=== PATIENT | female | born 1955 | race Caucasian/White ===

== ENCOUNTER 2024-11-25 15:28 | Emergency (ER) | payer MEDICARE, SELFPAY ==
--- NOTE | ~2024-11-25 | XR_ITS ---
XR abdomen/kub 1V Ordering provider: Porter Olson APRN History: . diarrhea/abdomen cramping . Comparison: None. FINDINGS: BOWEL: Nonobstructive bowel gas pattern. ORGANOMEGALY: None. SIGNIFICANT PATHOLOGIC CALCIFICATIONS: None. OTHER: No free air is seen under the diaphragm. Degenerative changes of the spine. Bilateral moderate hip osteoarthritic changes. IMPRESSION: NO ACUTE ABDOMINAL FINDINGS. Reviewed, dictated and finalized at location A.
--- OUTSIDE RECORDS SUMMARY | 2024-11-25 15:31 | XMS_ITS | Encounter Summary ---
Author Organization [facility] Health Address [address] [place] [address] Care Team Providers Care Drafter Castings Name Role Phone Ranjeet Colby MD Primary Care Provider [phone] Ranjeet Colby MD Unavailable [phone] Ranjeet Colby MD Primary Care Provider [phone] Encounter Details Date Type Department Care Team (Late st Contact Info) Description 12/02/2021 Ophth Exam [facility] [address] [place] [address] Naina Strong MD [address] [place] [address] [address] [place] [address] Social History Tobacco Use Types Packs/Day Years Used Date Smoking Tobacco: Every Day Cigarettes 1 40 Smokeless Tobacco: Never Alcohol Use Standard Drinks/Week Comments Yes 0 (1 standard drink = 0.6 oz pur e alcohol) socially per family AUDIT-C Answer Date Recorded Q1: How often do you have a drink containing alc ohol? Never 11/25/2021 Average Number of Drinks Not on file 022 Frequency of Binge Drinking Not on file 11/02 Hunger Vital Sign Answer Date Recorded Within the past 12 months, y ou worried that your food would run out before you got the money to buy more. Never true 11/27/19 22 Within the past 12 months, t he food you bought just didn't last and you didn't have money to get more. Never true 11/26/2021 Comments Unknown Sex and Gender Information Value Date Recorded Sex Assigned at Female 11/27/2021 1:48 PM CDT Legal Sex Female 8:24 PM CDT Gender Identity Female 11/27/2021 1:48 PM CDT Sexual Orientation Straight 11/27/2021 1: 48 PM CDT documented as of this encounter Functional Status * Is person deaf or have serious hearing difficulty? Answer Date of Assessment Author No 11/26/2021 2:47 PM CDT Benita Almazan RN * Is person blind or have serious difficulty seeing? Answer Date of Assessment Author No 11/26/2021 2:47 PM CDT Benita Almazan RN * Does person have serious difficulty walking/climbing stairs? Answer Date of Assessment Author Yes 11/26/2021 2:47 PM CDT Benita Almazan RN * Does person have difficulty dressing/bathing? Answer Date of Assessment Author No 11/26/2021 2:47 PM CDT Benita Almazan RN * Does person have difficulty doing errands alone? Answer Date of Assessment Author No 11/26/2021 2:47 PM CDT Benita Almazan RN documented as of this encounter Mental Status * Does person have difficulty concentrating/remembering/making decisions? Answer Entry Date Author No 11/26/2021 2:47 PM CDT Benita Almazan RN documented in this encounter Plan of Treatment Upcoming Encounters Date Type Department Care Team (Late st Contact Info) Description 03/20/2025 11:30 AM CDT Procedure visit [facility] - [address] [phone] 03/20/2025 12:30 PM CDT Office Visit [facility] - [address] [address] Giovanny Srivastava MD [address] [place] [address] [place] [address] documented as of this encounter Goals Goal Patient Goal Type Associated Problems Recent Progress Patient-Stated? Author Medication Management General On track( 024 1:20 PM CDT) No Cesar Shi RN Note: Expected end date: Interventions: Take all medications as prescribed Let your doctor know right away about any changes in your medications Make sure to request a refill of your medication at least one week prior to your last dose documented as of this encounter Visit Diagnoses Not on filedocumented in this encounter Additional Health Concerns Infection Onset Date Last Indicated Resolved Time COVID-19 Under Investigation 12/06/2021 12/06/2021 12/07/2021 3:11 AM CDT documented as of this encounter Care Teams Drafter Castings Relationship Specialty Start Date End Date Ranjeet Colby MD PCP - General Internal Medicine 11/26/21 12/08/21 Ranjeet Colby MD [address] [place] [address] PCP - General 12/09/21 Ranjeet Colby MD [address] [place] [address] Family Medicine 11/26/21 documented as of this encounter
--- OUTSIDE RECORDS SUMMARY | 2024-11-25 15:31 | XMS_ITS | Clinical Summary ---
Author Organization [facility] [employer] Address [address] [place] [address] Care Team Providers Care Cell Reliner Name Role Phone Ranjeet Colby MD Unavailable [phone] Ranjeet Colby MD Primary Care Provider [phone] Source Comments [facility] [employer],non-owned Affiliates and Associated Physician Practices is amultiple site organization consisting of ambulatory clinics and hospital sitesin [place], [place], [place] and [place]. This disclosure is being madepursuant to the Care Everywhere program and may not contain all information available regarding this patient. Last updated 18.[facility]avel[facility] [employer] Allergies Active Allergy Reactions Criticality Noted Date Comments Pregabalin Other Low 04/06/2014 Gaining too much weight. Rosuvastatin Other Low 02/24/2013 Hair loss Medications * Be aware that medications may not be up to date on this document. Alwaysverify current medications with the patient. cetirizine (ZYRTEC) 10 MG tablet Take 1 (one) tablet by mouth DAILY 7 Active citalopram (CELEXA) 20 MG tablet 6 Active atorvastatin (LIPITOR) 20 MG tablet 6 Active traZODone (DESYREL) 50 MG tablet Take 1 (one) tablet by mouth at bedtime 2 Active omeprazole (PRILOSEC) 40 MG capsule Take 1 (one) capsule by mouth daily before breakfast 2 Active lisinopril (PRINIVIL; ZESTRIL) 2.5 MG tablet Take 1 (one) tablet by mouth every morning Active albuterol-ipratrop ium (DUO-NEB) 0.5-2.5 (3) MG/3ML nebulizer solution Inhale 3 mL by mouth every 6 hours 2 Active lidocaine (LIDODERM) 5 % patch Apply 2 (two) patches to skin every 24 hours 2 Active triamterene-hydroC HLOROthiazide (MAXZIDE-25) 37.5-25 MG tablet Take 1 (one) tablet by mouth once daily 2 Active levothyroxine (SYNTHROID) 25 MCG tablet Take 1 (one) tablet by mouth once daily 2 Active gabapentin (Neurontin) 600 MG tablet Take 1 (one) tablet by mouth 3 times daily 90 tablet 5 2 Active isosorbide mononitrate CR 24hr (Imdur) 30 MG tablet Take 1 (one) tablet by mouth once daily 2 Active Aspirin 81 MG CAPS 1 tablet DAILY (route: oral) 2 Active Calcium Carbonate-Vitamin D (Calcium-Vitamin D) 600-3.125 MG-MCG TABS Take 2 tablets by mouth once daily Active ursodiol (Pedro Forte) 500 MG tablet Take 1 (one) tablet by mouth 2 times daily 180 tablet 3 4 03/21/20 25 Active diclofenac sodium (Voltaren) 1 % gelIndications:Susanna floridalma osteoarthritis of right knee Apply 2 (two) g to affected area 4 times daily Apply to knees 100 g 5 4 Active Active Problems Problem Noted Date Diagnosed Date Adrenal nodule 12/13/2021 Ectatic aorta 12/13/2021 L2 vertebral fracture 11/26/2021 Closed fracture of nasal bone 11/26/2021 Sacral fracture 11/26/2021 Pulmonary contusion 11/25/2021 Bilateral superior and inferior pubic rami fract ures 11/25/2021 Closed fracture of multiple ribs of right side, initial encounter 11/25/2021 Multiple closed fractures of pelvis without disruption of pelvic ring, initial encounter 11/25/2021 Primary biliary cholangitis 11/12/2016 Overview (11/24/2021): 12/2005: Liver biopsy: 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, PAGE, duct abnormalities, positive AMA 11/21/21 Fibroscan CAP 216, LSM 5.3 kPa Essential (primary) hypertension 02/24/2013 Hyperlipidemia 02/24/2013 Osteoarthritis 02/24/2013 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 Coronary angioplasty status 02/24/2013 Neuropathy of right peroneal nerve Resolved Problems Problem Noted Date Diagnosed Date Resolved Date Hemopneumothorax on right 12/13/2021 Pelvic hematoma, female 12/13/202112/01 Acute delirium 12/13/2021 12/16/2021 Flail chest 12/13/2021 12/16/2021 Cardiac arrest 12/13/2021 12/16/2021 Traumatic adrenal hematoma 12/13/2021 0 12/16/2021 Hemorrhage of pelvic artery 12/13/2021 12/16/2021 Bladder wall hemorrhage 11/26/202112/01 Respiratory failure after trauma 11/26/2021 12/16/2021 Diarrhea 07/03/2014 11/30/2017 Overview (11/02/2017): Colonoscopy biopsies consistent with lymphocytic colitis. Immunizations Immunization Administration Dates Next Due KlickEx primary monoval ent 12+ yr 0.3mL Purple cap 08/28/2021,11/18/2020,10/12/2020 Family History Medical History Relation Name Comments Cancer Father Lymphoma; Statu s: Diabetes Mother Status: Alive Heart Disease Mother AFIB Hypertension Mother Heart Disease Sister 1 Status: Alive Diabetes Sister 2 Diabetes Sister 3 Status: Alive Heart Disease Sister 4 Status: Deceas ed Arthritis Sister 5 Diabetes Sister 6 Diabetes Sister 7 Status: Alive None Known Sister 8 Status: Alive Relation Name Status Comments Father Mother Sister 1 Sister 2 Sister 3 Sister 4 Sister 5 Sister 6 Sister 7 Sister 8 Social History Tobacco Use Types Packs/Day Years Used Date Smoking Tobacco: Former Cigarettes 1 40 0 11/25/1981 - 11/25/2021 Smokeless Tobacco: Never Tobacco Cessation:Counseling Given: Not Answered Alcohol Use Standard Drinks/Week Comments Yes 0 (1 standard drink = 0.6 oz pur e alcohol) socially per family AUDIT-C Answer Date Recorded Q1: How often do you have a drink containing alc ohol? Never 11/25/2021 Average Number of Drinks Not on file 022 Frequency of Binge Drinking Not on file 11/02 PHQ-2 Answer Date Recorded Patient Health Questionnaire-2 Score 4 06/14/2024 Hunger Vital Sign Answer Date Recorded Within [...] Orientation Straight 11/27/2021 1: 48 PM CDT Last Filed Vital Signs Vital Sign Reading Time Taken Comments Blood Pressure 131/78 03/21/2024 1:19 PM CDT Pulse 72 03/21/2024 1:19 PM CDT Temperature 36.6 C (97.9 F) 03/21/2024 1:19 PM CDT Respiratory Rate 20 04/02/2023 12:10 PM CDT Oxygen Saturation 96% 03/21/2024 1:19 PM CDT Inhaled Oxygen Concentration 21% 12/16/2021 4 :52 AM CDT Weight 69.9 kg (154 lb) 04/11/2024 2:11 PM CDT Height 152.4 cm (5') 03/21/2024 1:19 PM CDT Body Mass Index 30.08 03/21/2024 1:19 PM CDT Plan of Treatment Upcoming Encounters Date Type Department Care Team (Late st Contact Info) Description 03/20/2025 11:30 AM CDT Procedure visit [facility] [address] [place] [phone] 03/20/2025 12:30 PM CDT Office Visit [facility] - [facility] [address] [place] [phone] Giovanny Srivastava MD [address] [place] [address] [place] [address] Health Maintenance Due Date Last Done Comments COLOGUARD (AGES 45-75) - COLON CA SCREENING 1954 COLON MONITORING 1954 COLONOSCOPY - COLON CA SCREENING 1954 CT COLONOGRAPHY - COLON CA SCREENING 1954 Colorectal Cancer Screening 1954 FIT - COLON CA SCREENING 1954 FLEX SIG - COLON CA SCREENING 1954 MAMMOGRAM 1954 MEDICARE AWV 12 MONTHS 1954 HEPATITIS C SCREENING 01/12/1972 DTAP/TDAP/TD VACCINES (1 - Tdap) 1973 PNEUMOCOCCAL VACCINE 50+ (1 of 2 - PCV) 1973 LUNG CANCER SCREENING 01/17/2004 ZOSTER VACCINE (1 of 2) 01/17/2004 HEPATITIS B VACCINE (1 of 3 - Risk 3-dose series) 2014 Respiratory Syncytial Virus (RSV) Vaccine Pt: or over 60 yrs (1 - Risk 60-74 years 1-dose series) 2014 COVID-19 VACCINE (4 - season) 2024 08/28/2021, 11/18/2020, 10/12/2020 DEPRESSION SCREENING 08/03/2024 INFLUENZA VACCINE (Season Ended) 2025 06/09/2019, 06/22/2018 SCREENING FOR DIABETES 03/21/2027 , 04/02/2023, 11/20/2022, Additional history exists BONE DENSITY TESTING Completed 04/02/2023 HIB VACCINE Aged Out No longer eligi ble based on patient's age to complete this topic HPV VACCINE Aged Out No longer eligi ble based on patient's age to complete this topic MENINGOCOCCAL (Group B) VACCINE SHARED DECISION-MAKING Aged Out No longer eligible based on patient's age to complete this topic MENINGOCOCCAL GROUPS A/C/Y/W VACCINE Aged Out No longer eligible based on patient's age to complete this topic Goals Goal Patient Goal Type Associated Problems Recent Progress Patient-Stated? Author Medication Management General On track( 024 1:20 PM CDT) Cesar Gregory, RN Note: Expected end date: Interventions: Take all medications as prescribed Let your doctor know right away about any changes in your medications Make sure to request a refill of your medication at least one week prior to your last dose Procedures Procedure Name Priority Date/Time Associated Diagnosis Comments COMPREHENSIVE METABOLIC PANEL Routine 03/21/2024 11:50 AM CDT Primary biliary cholangitis DEXA BONE DENSITY AXIAL SKELETON Routine 04/02/2023 10:06 AM CDT Primary biliary cholangitis from Last 3 Months or Most Recently Relevant to Health Maintenance Results * (ABNORMAL) COMPREHENSIVE METABOLIC PANEL (03/21/2024 11:50 AM CDT) BUN 12 7 - 26 mg/dL 03/21/2024 12:45 PM [facility] Creatinine 0.66 0.56 - 0.96 mg/dL 03/21/2024 12:45 PM [facility] Sodium 136 136 - 145 mmol/L 03/21/2024 12:45 PM [facility] Potassium 5.0(H) 3.5 - 4.5 mmol/L 03/21/2024 12:45 PM [facility] Chloride 100 98 - 107 mmol/L 03/21/2024 12:45 PM [facility] CO2 28 22 - 29 mmol/L 03/21/2024 12:45 PM [facility] Glucose 120(H) 70 - 115 mg/dL 03/21/2024 12:45 PM [facility] Calcium 10.1 8.4 - 10.2 mg/dL 03/21/2024 12:45 PM [facility] Protein Total 7.5 6.0 - 8.3 g/dL 03/21/2024 12:45 PM [facility] Albumin 4.1 3.4 - 5.0 g/dL 03/21/2024 12:45 PM [facility] Bilirubin Total 0.4 0.2 - 1.2 mg/dL 03/21/2024 12:45 PM [facility] Alkaline Phosphatase 88 40 - 150 U/L 03/21/2024 12:45 PM [facility] ALT 19 5 - 55 U/L 03/21/2024 12:45 PM CDT [facility] AST 23 5 - 34 U/L 03/21/2024 12:45 PM CDT [facility] Anion Gap 8 6 - 16 03/21/2024 12:45 PM CDT [facility] BUN/Creatinine Ratio 18 7 - 23 03/21/2024 12:45 PM CDT [facility] Osmolality Calculated 283 275 - 295 mOsm/kg 03/21/2024 12:45 PM T [facility] Albumin/Globulin Ratio 1.2 1.1 - 2.3 03/21/2024 12:45 PM T [facility] eGFR by CKD-EPI >90 >=90 mL/min/1.7 3 m2 03/21/2024 12:45 PM T [facility] Blood BLOOD SPECIMEN / Unknown Lab Venipuncture / Unknown 03/21/2024 11:50 AM CDT 03/21/2024 12:08 PM CDT Giovanny Srivastava MD LAB - CHEMISTRY ORDERA BLES Final Result [facility] [address] [place] [phone], [facility] [phone] * BONE DENSITY AXIAL SKELETON(1OR MORE SITES)[id number] (04/02/2023 10:06 AM CDT) Anatomical Region Laterality Modality Other 04/02/2023 2:47 PM CDT Narrative 04/02/2023 2:53 PM CDT PROCEDURE: DEXA BONE DENSITY AXIAL SKELETON DATE/TIME OF EXAM: 04/02/2023 10:06 AM CLINICAL INFORMATION: None relevant/not provided if blank. Indication: K74.3: Primary biliary cholangitis (CMS/HCC) COMPARISON: None. LUMBAR SPINE (L1-L4): Bone mineral density (g/cm2): 0.861 Current T-score: -1.7 LEFT FEMORAL NECK: Bone mineral density (g/cm2): 0.649 Current T-score: -1.8 BONE DENSITY ASSESSMENT: WHO Category: Osteopenia. FRAX not reported because: Prior hip or vertebral fracture. Please see the PACS images for additional details. World Health Organization definitions of standard deviations relative to the mean T-score: Normal bone density = -1.0 and above Osteopenia = between -1.0 and -2.5 Osteoporosis = -2.5 and below > Dictated by George Abad MD ([employer]) 04/02/2023 2:47 PM Kavon Chow DO have personally reviewed and interpreted this examination/study. > Interpreting Provider: Kavon Navas DO on 04/02/2023 2:53 PM Procedure Note Kavon Navas DO - 04/02/2023 PROCEDURE: DEXA BONE DENSITY AXIAL SKELETON DATE/TIME OF EXAM: 04/02/2023 10:06 AM CLINICAL INFORMATION: None relevant/not provided if blank. Indication: K74.3: Primary biliary cholangitis (CMS/HCC) COMPARISON: None. LUMBAR SPINE (L1-L4): Bone mineral density (g/cm2): 0.861 Current T-score: -1.7 LEFT FEMORAL NECK: Bone mineral density (g/cm2): 0.649 Current T-score: -1.8 BONE DENSITY ASSESSMENT: WHO Category: Osteopenia. FRAX not reported because: Prior hip or vertebral fracture. Please see the PACS images for additional details. World Health Organization definitions of standard deviations relative to the mean T-score: Normal bone density = -1.0 and above Osteopenia = between -1.0 and -2.5 Osteoporosis = -2.5 and below > Dictated by George Abad MD ([employer]) 04/02/2023 2:47PM Kavon Chow DO have personally reviewed and interpreted this examination/study. > Interpreting Provider: Kavon Navas DO on 04/02/2023 2:53 PM Giovanny Srivastava MD DEXA ORDERABLES Final Result from Last 3 Months or Most Recently Relevant to Health Maintenance Insurance [facility] SUPPLEMENT PAYOR GENERIC MEDICARE MEDICARE SUPPLEMENT PAYOR GENERIC MEDICARE MEDICARE MEDICARE SUPPLEMENT PAYOR GENERIC MEDICARE MEDICARE SUPPLEMENT PAYOR GENERIC [facility] [employer] [employer] LIABILITY MEDICARE MEDICARE MEDICARE MEDICARE MEDICARE Member [facility] Name:Irina Price R Member ID:[id number] Relation to Subscriber:Self Name:IRINA PRICE R Subscriber ID:[id number] Payer ID:Not on file Group ID:Not on file Type:Medicare Address: [place] [address] MEDICARE Member Subscriber [facility] / [facility] Name:Irina Price R Member ID:[id number] Relation to Subscriber:Self Name:IRINA PRICE R Subscriber ID:[id number] Payer ID:Not on file Group ID:Not on file Type:Medicare Address: [place] [address] MEDICARE Member Subscriber [facility] / [facility] Name:Kevin Pricea R Member ID:[id number] Relation to Subscriber:Self Name:IRINA PRICE R Subscriber ID:[id number] Payer ID:Not on file Group ID:Not on file Type:Medicare Address: [place] [address] MEDICARE Member Subscriber [facility] / [facility]Present[facility] Name:Kevin Pricea R Member ID:[id number] Relation to Subscriber:Self Name:IRINA PRICE R Subscriber ID:[id number] Payer ID:Not on file Group ID:Not on file Type:Medicare Address: [place] [address] MEDICARE Member Subscriber [facility] / [facility]Present[facility] Name:Kevin Pricea R Member ID:[id number] Relation to Subscriber:Self Name:KEVIN PRICEA R Subscriber ID:[id number] Payer ID:Not on file Group ID:Not on file Type:Medicare Address: [place] [address] MEDICARE Member Subscriber [facility] / [facility]Present[facility] Name:Irina Price R Member ID:[id number] Relation to Subscriber:Self Name:IRINA PRICE R Subscriber ID:[id number] Payer ID:Not on file Group ID:Not on file Type:Medicare Address: [place] [address] MEDICARE MEDICARE Member Subscriber [facility] / [facility]Present) Name:Kevin Pricea R Member ID:[id number] Relation to Subscriber:Self Name:IRINA PRICE R Subscriber ID:[id number] Payer ID:Not on file Group ID:Not on file Type:Medicare Address: [place] [address] MEDICARE Member Subscriber [facility] / [facility]Present) Name:Kevin Pricea R Member ID:[id number] Relation to Subscriber:Self Name:IRINA PRICE R Subscriber ID:[id number] Payer ID:Not on file Group ID:Not on file Type:Medicare Address: [place] [address] MEDICARE Member Subscriber [facility] / [facility]Present[facility] Name:Kevin Pricea R Member ID:[id number] Relation to Subscriber:Self Name:ALBERTKEVINA R Subscriber ID:[id number] Payer ID:Not on file Group ID:Not on file Type:Medicare Address: [place] [id number] MEDICARE Member Subscriber Plan / Payer ( fective 2019-Present) Name:Irina Price R Member ID:[id number] Relation to Subscriber:Self Name:IRINA PRICE R Subscriber ID:[id number] Payer ID:Not on file Group ID:Not on file Type:Medicare Address: [address] MED[address]ARE MEDICARE Member Subscriber Plan / Payer ( fective 2019-Present) Name:Kevin Pricea R Member ID:[id number] Relation to Subscriber:Self Name:KEVIN PRICEA R Subscriber ID:[id number] Payer ID:Not on file Group ID:Not on file Type:Medicare Address: [place] [id number] MEDICARE Member Subscriber [facility] / [facility] Name:Kevin Pricea R Member ID:[id number] Relation to Subscriber:Self Name:KEVIN PRICEA R Subscriber ID:[id number] Payer ID:Not on file Group ID:Not on file Type:Medicare Address: [place] [id number] MEDICARE MEDICARE MEDICARE MEDICARE MEDICARE Member Subscriber Plan / Payer ( fective 2019-Present) Name:Kevin Pricea R Member ID:[id number] Relation to Subscriber:Self Name:IRINA PRICE R Subscriber ID:[id number] Payer ID:Not on file Group ID:Not on file Type:Medicare Address: [place] [id number] MEDICARE MEDICARE MEDICARE MEDICARE MEDICARE MEDICARE MEDICARE MEDICARE MEDICARE Member Subscriber [facility] / [facility]Present[facility] Name:Irina Price R Member ID:[id number] Relation to Subscriber:Self Name:IRINA PRICE R Subscriber ID:[id number] Payer ID:Not on file Group ID:Not on file Type:Medicare Address: [place] [address] MEDICARE Member Subscriber [facility] / [facility]Present) Name:Irina Price R Member ID:[id number] Relation to Subscriber:Self Name:IRINA PRICE R Subscriber ID:[id number] Payer ID:Not on file Group ID:Not on file Type:Medicare Address: [place] [address] MEDICARE MEDICARE MEDICARE Member Subscriber Plan / [facility]Present) Name:Kevin Pricea R Member ID:[id number] Relation to Subscriber:Self Name:IRINA PRICE R Subscriber ID:[id number] Payer ID:Not on file Group ID:Not on file Type:Medicare Address: [place] [address] MEDICARE Member Subscriber Plan / [facility]Present) Name:Irina Price R Member ID:[id number] Relation to Subscriber:Self Name:IRINA PRICE R Subscriber ID:[id number] Payer ID:Not on file Group ID:Not on file Type:Medicare Address: [place] [address] MEDICARE Member Subscriber Plan / [facility]Present) Name:Kevin Pricea R Member ID:[id number] Relation to Subscriber:Self Name:IRINA PRICE R Subscriber ID:[id number] Payer ID:Not on file Group ID:Not on file Type:Medicare Address: [place] [address] MEDICARE Member Subscriber Plan / [facility]Present) Name:Kevin Pricea R Member ID:[id number] Relation to Subscriber:Self Name:IRINA PRICE R Subscriber ID:[id number] Payer ID:Not on file Group ID:Not on file Type:Medicare Address: [place] [address] MEDICARE Member Subscriber [facility] / [facility]Present[facility] Name:AlbertKevina R Member ID:[id number] Relation to Subscriber:Self Name:KEVIN PRICEA R Subscriber ID:[id number] Payer ID:Not on file Group ID:Not on file Type:Medicare Address: [place] [address] MEDICARE MEDICARE MEDICARE MEDICARE Member Subscriber Plan / [facility]Present) Name:Kevin Pricea R Member ID:[id number] Relation to Subscriber:Self Name:IRINA PRICE R Subscriber ID:[id number] Payer ID:Not on file Group ID:Not on file Type:Medicare Address: [place] [address] MEDICARE MEDICARE Member Subscriber Plan / Payer ( fective 2019-Present) Name:Kevin Pricea R Member ID:[id number] Relation to Subscriber:Self Name:KEVIN PRICEA R Subscriber ID:[id number] Payer ID:Not on file Group ID:Not on file Type:Medicare Address: [address] MED[address]ARE MEDICARE MEDICARE Member Subscriber Plan / Payer ( fective 2019-Present) Name:AlbertKevina R Member ID:[id number] Relation to Subscriber:Self Name:KEVIN PRICEA R Subscriber ID:[id number] Payer ID:Not on file Group ID:Not on file Type:Medicare Address: [place] [id number] MEDICARE Member Subscriber Plan / Payer ( fective 2019-Present) Name:AlbertKevina R Member ID:[id number] Relation to Subscriber:Self Name:ALBERTKEVINA R Subscriber ID:[id number] Payer ID:Not on file Group ID:Not on file Type:Medicare Address: [place] [id number] MEDICARE Member Subscriber Plan / Payer ( fective 2019-Present) Name:Irina Price R Member ID:[id number] Relation to Subscriber:Self Name:IRINA PRICE R Subscriber ID:[id number] Payer ID:Not on file Group ID:Not on file Type:Medicare Address: [address] MED[address]ARE Member Subscriber Plan / Payer ( fective 2019-Present) Name:Kevin Pricea R Member ID:[id number] Relation to Subscriber:Self Name:KEVIN PRICEA R Subscriber ID:[id number] Payer ID:Not on file Group ID:Not on file Type:Medicare Address: [place] [id number] MEDICARE Member Subscriber Plan / Payer ( fective 2019-Present) Name:Kevin Pricea R Member ID:[id number] Relation to Subscriber:Self Name:KEVIN PRICEA R Subscriber ID:[id number] Payer ID:Not on file Group ID:Not on file Type:Medicare Address: [place] [id number] MEDICARE Member Subscriber Plan / Payer ( fective 2019-Present) Name:Kevin Pricea R Member ID:[id number] Relation to Subscriber:Self Name:IRINA PRICE R Subscriber ID:[id number] Payer ID:Not on file Group ID:Not on file Type:Medicare Address: [place] [id number] MEDICARE Member Subscriber Plan / Payer ( fective 2019-Present) Name:Kevin Pricea R Member ID:[id number] Relation to Subscriber:Self Name:KEVIN PRICEA R Subscriber ID:[id number] Payer ID:Not on file Group ID:Not on file Type:Medicare Address: [place] [id number] MEDICARE MEDICARE MEDICARE MEDICARE Member Subscriber [facility] / [facility]Present[facility] Name:Irina Price R Member ID:[id number] Relation to Subscriber:Self Name:IRINA PRICE R Subscriber ID:[id number] Payer ID:Not on file Group ID:Not on file Type:Medicare Address: [place] [address] MEDICARE MEDICARE MEDICARE Member Subscriber Plan / [facility]Present) Name:Irina Price R Member ID:[id number] Relation to Subscriber:Self Name:IRINA PRICE R Subscriber ID:[id number] Payer ID:Not on file Group ID:Not on file Type:Medicare Address: [place] [address] MEDICARE MEDICARE MEDICARE Member Subscriber Plan / [facility]Present) Name:Kevin Pricea R Member ID:[id number] Relation to Subscriber:Self Name:IRINA PRICE R Subscriber ID:[id number] Payer ID:Not on file Group ID:Not on file Type:Medicare Address: [place] [address] MEDICARE Member Subscriber Plan / [facility]Present) Name:Kevin Pricea R Member ID:[id number] Relation to Subscriber:Self Name:IRINA PRICE R Subscriber ID:[id number] Payer ID:Not on file Group ID:Not on file Type:Medicare Address: [place] [address] MEDICARE MEDICARE MEDICARE MEDICARE MEDICARE MEDICARE Member Subscriber Plan / [facility]Present) Name:Irina Price R Member ID:[id number] Relation to Subscriber:Self Name:IRINA PRICE R Subscriber ID:[id number] Payer ID:Not on file Group ID:Not on file Type:Medicare Address: [place] [address] MEDICARE Member Subscriber Plan / [facility]Present) Name:Irina Price R Member ID:[id number] Relation to Subscriber:Self Name:IRINA PRICE R Subscriber ID:[id number] Payer ID:Not on file Group ID:Not on file Type:Medicare Address: [place] [address] MEDICARE Member Subscriber Plan / [facility]Present) Name:Irina Price R Member ID:[id number] Relation to Subscriber:Self Name:IRINA PRICE R Subscriber ID:[id number] Payer ID:Not on file Group ID:Not on file Type:Medicare Address: [place] [address] MEDICARE Member Subscriber Plan / [facility] Name:Kevin Pricea R Member ID:[id number] Relation to Subscriber:Self Name:IRINA PRICE R Subscriber ID:[id number] Payer ID:Not on file Group ID:Not on file Type:Medicare Address: [place] [address] MEDICARE Member [facility]scriber [facility] Name:Kevin Pricea R Member ID:[id number] Relation to Subscriber:Self Name:IRINA PRICE R Subscriber ID:[id number] Payer ID:Not on file Group ID:Not on file Type:Medicare Address: [place] [address] MEDICARE MEDICARE MEDICARE Member Subscriber [facility] / [facility] Name:Kevin Pricea R Member ID:[id number] Relation to Subscriber:Self Name:IRINA PRICE R Subscriber ID:[id number] Payer ID:Not on file Group ID:Not on file Type:Medicare Address: [place] [address] MEDICARE Member Subscriber [facility] / [facility] Name:Kevin Pricea R Member ID:[id number] Relation to Subscriber:Self Name:IRINA PRICE R Subscriber ID:[id number] Payer ID:Not on file Group ID:Not on file Type:Medicare Address: [place] [address] MEDICARE MEDICARE Advance Directives * Full Code (Latest Code Status on File) Date Activated Date Inactivated Comments 11/25/2021 10:45 PM 12/16/2021 10:21 PM * Full Code Date Activated Date Inactivated Comments 11/25/2021 9:39 PM 11/25/2021 10:44 PM Care Teams Cell Reliner Relationship Specialty Start Date End Date Ranjeet Colby MD [address] [place] [address] PCP - General 12/09/21 Ranjeet Colby MD [address] [place] [address] Family Medicine 11/26/21
--- OUTSIDE RECORDS SUMMARY | 2024-11-25 15:31 | XMS_ITS | Encounter Summary ---
Author Organization [facility] Address [address] [facility] [place] [address] Care Team Providers Care Sale Professional Digital Marketing Name Role Phone Ranjeet Colby MD Primary Care Provider [phone] Ranjeet Colby MD Unavailable [phone] Ranjeet Colby MD Primary Care Provider [phone] Encounter Details Date Type Department Care Team (Late st Contact Info) Description 11/30/2021 Ophth Exam [facility] [address] [place] [phone] Mandeep Pizano MD [address] [facility] [address] [place] [address] [phone] Social History Tobacco Use Types Packs/Day Years [...] Description 03/20/2025 11:30 AM CDT Procedure visit [facility] - [address] [phone] 03/20/2025 12:30 PM CDT Office Visit [facility] - [address] [phone] Giovanny Srivastava MD [address] [place] [address] [place] [address] documented as of this encounter Goals Goal [...] documented as of this encounter Care Teams Sale Professional Digital Marketing Relationship Specialty Start Date End Date Ranjeet Colby MD PCP - General Internal Medicine 11/26/21 12/08/21 Ranjeet Colby MD [address] [place], [place] [id number] PCP - General 12/09/21 Ranjeet Colby MD [address] [place] [address] Family Medicine 11/26/21 documented as of this encounter
--- OUTSIDE RECORDS SUMMARY | 2024-11-25 15:31 | XMS_ITS | Encounter Summary ---
Author Organization [facility] Address [address] [facility] [place] [address] Care Team Providers Care Cell Efficiency Supervisor Name Role Phone Ranjeet Colby MD Unavailable [phone] Ranjeet Colby MD Primary Care Provider [phone] Reason for Visit * Reason Onset Date Comments Appointment 08/18/2023 Encounter Details Date Type Department Care Team (Late st Contact Info) Description 08/18/2023 Telephone [facility] - Ophthalmology [address] [place] [phone] Kimi Chance MD [address] [place] [address] [place] [address] Appointment Social History Tobacco Use Types Packs/Day Years Used Date Smoking Tobacco: Former Cigarettes 1 40 0 11/25/1981 - 11/25/2021 Smokeless Tobacco: Never Alcohol Use Standard Drinks/Week [...] Benita Almazan RN documented in this encounter Miscellaneous Notes * Telephone Encounter - Efrem Callahan - 08/18/2023 9:15 AM CST Pt called this morning to reschedule today's appointment. Please assist and advise CHECKER documented in this encounter Plan of Treatment Upcoming Encounters Date Type Department Care Team (Late st Contact Info) Description 03/20/2025 11:30 AM CDT Procedure visit [facility] - [place] [address] [place] [phone] 03/20/2025 12:30 PM CDT Office [place] [facility] [place] [address] [place] [phone] Giovanny Srivastava MD [address] [place] [address] [place] [address] documented as of this encounter Goals Goal [...] Diagnoses Not on filedocumented in this encounter Care Teams Cell Efficiency Supervisor Relationship Specialty Start Date End Date Ranjeet Colby MD [address] [place] [address] PCP - General 12/09/21 Ranjeet Colby MD [address] [place] [address] Family Medicine 11/26/21 documented as of this encounter
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
--- OUTSIDE RECORDS SUMMARY | 2024-11-25 15:31 | XMS_ITS | Data Portability ---
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 10/21/2024 08:14:55 03/21/20 24 03/21/2024 Compr ens sylvia metab olic 1999 panel - Serum or Plasm a bilirubin.to chavo [mass/volume ] in serum or plasma 0.4 mg/dL low: 0.2mg/ dLhigh : 1.2mg/ dL Bilir ubin Total 0.4 0.2 - 1.2 mg/dL 03/21 12:45 PM CDT [facility] Not Available Not Available 10/21/2024 08:14:55 03/21/20 24 03/21/2024 Compr ens sylvia metab olic 1999 panel - Serum or Plasm a alkaline phosphatase [enzymatic activity/vol ume] in serum or plasma 88 U/L low: 40U/Lh igh: 150U/L Alkal ine Phosp hatas e 88 40 - 150 U/L 03/21 12:45 PM CDT [facility] Not Available Not Available 10/21/2024 08:14:55 03/21/20 24 03/21/2024 Compr ens sylvia metab olic 1999 panel - Serum or Plasm a alanine aminotransfe rase [enzymatic activity/vol ume] in serum or plasma by no addition of P-5'-P 19 U/L low: 5U/Lhi gh: 55U/L ALT 19 5 - 55 U/L 03/21 12:45 PM CDT [facility] Not Available Not Available 10/21/2024 08:14:55 03/21/20 24 03/21/2024 Compr ehens sylvia metab olic 2000 panel - Serum or Plasm a aspartate aminotransfe rase [enzymatic activity/vol ume] in serum or plasma 23 U/L low: 5U/Lhi gh: 34U/L AST 23 5 - 34 U/L 03/21 12:45 PM CDT [facility] Not Available Not Available 10/21/2024 08:14:55 03/21/20 24 03/21/2024 Compr ehens sylvia metab olic 2000 panel - Serum or Plasm a anion gap 8 low: 6high: 16 Anion Gap 8 6 - 16 03/21 12:45 PM CDT [facility] Not Available Not Available 10/21/2024 08:14:55 03/21/20 24 03/21/2024 Compr ehens sylvia metab olic 2000 panel - Serum or Plasm a urea nitrogen/cre atinine [mass ratio] in serum or plasma 18 low: 7high: 23 BUN/C reati nine Ratio 18 7 - 23 03/21 12:45 PM CDT [facility] Not Available Not Available 10/21/2024 08:14:55 03/21/20 24 03/21/2024 Compr ehens sylvia metab olic 2000 panel - Serum or Plasm a osmolality calculated 283 text: 275 - 295 mOsm/k g Osmol ality Calcu lated 283 275 - 295 mOsm/ kg 03/21 12:45 PM CDT [facility] Not Available Not Available 10/21/2024 08:14:55 03/21/20 24 03/21/2024 Compr ehens sylvia metab olic 2000 panel - Serum or Plasm a albumin/glob ulin ratio 1.2 low: 1.1hig h: 2.3 Album in/Gl obuli n Ratio 1.2 1.1 - 2.3 03/21 12:45 PM CDT [facility] Not Available Not Available 10/21/2024 08:14:55 03/21/20 24 03/21/2024 Compr ehens sylvia metab olic 2000 panel - Serum or Plasm a glomerular filtration rate/1.73 sq M.predicted [volume rate/area] in serum, plasma or blood by creatinine-b ased formula (CKD-epi) text: >=90 mL/min /1.73 m2 eGFR by CKD-E PI >90 >=90 mL/mi n/1.7 3 m2 03/21 12:45 PM CDT [facility] Not Available Not Available 10/21/2024 08:14:55 03/21/20 24 03/21/2024 Compr ehens sylvia metab olic 2000 panel - Serum or Plasm a interpretati on and review of laboratory results Abnorm al Not Available Not Available 08:14:55 03/21/2003/21/2024 CBC W Auto Diffe renti al panel - Blood leukocytes [#/volume] in blood by automated count 6.7 text: 4.0 - 10.7 x10e9/ L WBC 6.7 4.0 - 10.7 x10E9 /L 03/21 12:18 PM CDT [facility] Not Available Not Available 10/21/2024 08:14:55 03/21/2003/21/2024 CBC W Auto Diffe renti al panel - Blood erythrocytes [#/volume] in blood by automated count 4.23 text: 3.90 - 5.20 x10e12 /L RBC Count 4.23 3.90 - 5.20 x10E1 2/L 03/21 12:18 PM CDT [facility] Not Available Not Available 10/21/2024 08:14:55 03/21/2003/21/2024 CBC W Auto Diffe renti al panel - Blood hemoglobin [mass/volume ] in blood 13.2 g/dL low: 11.9g/ dLhigh : 15.8g/ dL Hemog lobin 13.2 11.9 - 15.8 g/dL 03/21 12:18 PM CDT [facility] Not Available Not Available 10/21/2024 08:14:55 03/21/2003/21/2024 CBC W Auto Diffe renti al panel - Blood hematocrit [volume fraction] of blood by automated count 38.7 % low: 34.8%h igh: 46.1% Hemat ocrit 38.7 34.8 - 46.1 % 03/21 12:18 PM CDT [facility] Not Available Not Available 10/21/2024 08:14:55 03/21/20 24 03/21/2024 CBC W Auto Diffe renti al panel - Blood MCV [entitic volume] by automated count 91.5 fL low: 80fLhi gh: 98fL MCV 91.5 80.0 - 98.0 fL 03/21 12:18 PM CDT [facility] Not Available Not Available 10/21/2024 08:14:55 03/21/2003/21/2024 CBC W Auto Diffe renti al panel - Blood MCH [entitic mass] by automated count 31.2 pg low: 26.7pg high: 33.6pg MCH 31.2 26.7 - 33.6 pg 03/21 12:18 PM CDT [facility] Not Available Not Available 10/21/2024 08:14:55 03/21/2003/21/2024 CBC W Auto Diffe renti al panel - Blood MCHC [mass/volume ] by automated count 34.1 g/dL low: 31.7g/ dLhigh : 36.3g/ dL MCHC 34.1 31.7 - 36.3 g/dL 03/21 12:18 PM CDT [facility] Not Available Not Available 10/21/2024 08:14:55 03/21/2003/21/2024 CBC W Auto Diffe renti al panel - Blood erythrocyte distribution width [ratio] by automated count 12.8 % low: 11.3%h igh: 14.8% RDW-C V 12.8 11.3 - 14.8 % 03/21 12:18 PM CDT [facility] Not Available Not Available 10/21/2024 08:14:55 03/21/2003/21/2024 CBC W Auto Diffe renti al panel - Blood platelets [#/volume] in blood by automated count 286 text: 150 - 420 x10e9/ L Plate let Count 286 150 - 420 x10E9 /L 03/21 12:18 PM CDT [facility] Not Available Not Available 10/21/2024 08:14:55 03/21/2003/21/2024 CBC W Auto Diffe renti al panel - Blood platelet mean volume [entitic volume] in blood by automated count 10.6 fL low: 7.8fLh igh: 11.4fL MPV 10.6 7.8 - 11.4 fL 03/21 12:18 PM CDT [facility] Not Available Not Available 10/21/2024 08:14:55 03/21/20 24 03/21/2024 CBC W Auto Diffe renti al panel - Blood neutrophils/ 100 leukocytes in blood by automated count 48.9 % low: 41%hig h: 74% Neutr ophil % 48.9 41.0 - 74.0 % 03/21 12:18 PM CDT [facility] Not Available Not Available 10/21/2024 08:14:55 03/21/20 24 03/21/2024 CBC W Auto Diffe renti al panel - Blood lymphocytes/ 100 leukocytes in blood by automated count 37.5 % low: 17%hig h: 47% Lymph ocyte % 37.5 17.0 - 47.0 % 03/21 12:18 PM CDT [facility] Not Available Not Available 10/21/2024 08:14:55 03/21/2003/21/2024 CBC W Auto Diffe renti al panel - Blood monocytes/10 0 leukocytes in blood by automated count 9.7 % low: 3%high : 11% Monoc yte % 9.7 3.0 - 11.0 % 03/21 12:18 PM CDT [facility] Not Available Not Available 10/21/2024 08:14:55 03/21/2003/21/2024 CBC W Auto Diffe renti al panel - Blood eosinophils/ 100 leukocytes in blood by automated count 3.1 % low: 0%high : 7% Eosin ophil % 3.1 0.0 - 7.0 % 03/21 12:18 PM CDT [facility] Not Available Not Available 10/21/2024 08:14:55 03/21/20 24 03/21/2024 CBC W Auto Diffe renti al panel - Blood basophils/10 0 leukocytes in blood by automated count 0.7 % low: 0%high : 1.6% Basop hil % 0.7 0.0 - 1.6 % 03/21 12:18 PM CDT [facility] Not Available Not Available 10/21/2024 08:14:55 03/21/20 24 03/21/2024 CBC W Auto Diffe renti al panel - Blood immature granulocytes /100 leukocytes in blood by automated count 0.1 % low: 0%high : 1% Immat ure Granu locyt es % 0.1 0.0 - 1.0 % 03/21 12:18 PM CDT [facility] Not Available Not Available 10/21/2024 08:14:55 03/21/2003/21/2024 CBC W Auto Diffe renti al panel - Blood neutrophils [#/volume] in blood by automated count 3.26 text: 1.60 - 7.50 x10e9/ L Neutr ophil Absol pina 3.26 1.60 - 7.50 x10E9 /L 03/21 12:18 PM CDT [facility] Not Available Not Available 10/21/2024 08:14:55 03/21/2003/21/2024 CBC W Auto Diffe renti al panel - Blood lymphocytes [#/volume] in blood by automated count 2.51 text: 1.00 - 4.40 x10e9/ L Lymph ocyte Absol pina 2.51 1.00 - 4.40 x10E9 /L 03/21 12:18 PM CDT [facility] Not Available Not Available 10/21/2024 08:14:55 03/21/2003/21/2024 CBC W Auto Diffe renti al panel - Blood monocytes [#/volume] in blood by automated count 0.65 text: 0.15 - 1.00 x10e9/ L Monoc yte Absol pina 0.65 0.15 - 1.00 x10E9 /L 03/21 12:18 PM CDT [facility] Not Available Not Available 10/21/2024 08:14:55 03/21/2003/21/2024 CBC W Auto Diffe renti al panel - Blood eosinophils [#/volume] in blood 0.21 text: 0.00 - 0.60 x10e9/ L Eosin ophil Absol pina 0.21 0.00 - 0.60 x10E9 /L 03/21 12:18 PM CDT [facility] Not Available Not Available 10/21/2024 08:14:55 03/21/20 24 03/21/2024 CBC W Auto Diffe renti al panel - Blood basophils [#/volume] in blood by automated count 0.05 text: 0.00 - 0.13 x10e9/ L Basop hil Absol pina 0.05 0.00 - 0.13 x10E9 /L 03/21 12:18 PM CDT [facility] Not Available Not Available 10/21/2024 08:14:55 03/21/20 24 03/21/2024 CBC W Auto Diffe renti al panel - Blood interpretati on and review of laboratory results Normal Not Available Not Available 10/02 08:14:55 07/12/20 24 07/13/2024 LIPID PANEL cholesterol, total 147 mg/dL 100-19 9 Not Available [facility] ([facility]) [address] [place], [address], 07/13/2024 14:07:20 07/12/20 24 07/13/2024 LIPID PANEL triglyceride s 217 mg/dL 0-149 above high normal Not Available [facility] ([facility]) [address] [place], [address], 07/13/2024 14:07:20 07/12/20 24 07/13/2024 LIPID PANEL HDL cholesterol 45 mg/dL >39 Not Available [facility] ([facility]) [address] [place], [address], 07/13/2024 14:07:20 07/12/20 24 07/13/2024 LIPID PANEL VLDL cholesterol billy 35 mg/dL 5-40 Not Available [facility] ([facility]) [address] [facility] [place], [address], 07/13/2024 14:07:20 07/12/20 24 07/13/2024 LIPID PANEL LDL chol calc ([facility]) 67 mg/dL 0-99 Not Available [facility] ([facility]) [address] [facility] [place], [address], 07/13/2024 14:07:20 07/12/20 24 07/13/2024 T4, FREE T4,free(dire ct) 1.20 NG/dL 0.82-1 .77 Not Available [facility] ([facility]) [address] [facility] [place], [address], 07/13/2024 14:07:21 07/12/20 24 07/13/2024 COMP. METAB OLIC PANEL (14) glucose 103 mg/dL 70-99 above high normal Not Available [facility] ([facility]) [address] [facility] [place], [address], 07/13/2024 14:07:22 07/12/20 24 07/13/2024 COMP. METAB OLIC PANEL (14) BUN 11 mg/dL 8-27 Not Available [facility] ([facility]) [address] [facility] [place], [address], 07/13/2024 14:07:22 07/12/20 24 07/13/2024 COMP. METAB OLIC PANEL (14) creatinine 0.67 mg/dL 0.57-1 .00 Not Available [facility] ([facility]) [address] [facility] [place], [address], 07/13/2024 14:07:22 07/12/20 24 07/13/2024 COMP. METAB OLIC PANEL (14) eGFR 94 mL/mi n/1.7 3 >59 Not Available [facility] ([facility]) [address] [facility] [place], [address], 07/13/2024 14:07:22 12/10/20 24 07/13/2024 COMP. METAB OLIC PANEL (14) BUN/creatini ne ratio 16 12-28 Not Available [facility] ([facility]) [address] [place], [address], 07/13/2024 14:07:22 07/12/20 24 07/13/2024 COMP. METAB OLIC PANEL (14) sodium 136 mmol/ L 134-14 4 Not Available [facility] ([facility]) [address] [facility], [place], [address], 07/13/2024 14:07:22 07/12/20 24 07/13/2024 COMP. METAB OLIC PANEL (14) potassium 4.2 mmol/ L 3.5-5. 2 Not Available [facility] ([facility]) [address] [place], [address], 07/13/2024 14:07:22 07/12/20 24 07/13/2024 COMP. METAB OLIC PANEL (14) chloride 95 mmol/ L 96-106 below low normal Not Available [facility] ([facility]) [address] [place], [address], 07/13/2024 14:07:22 07/12/20 24 07/13/2024 COMP. METAB OLIC PANEL (14) carbon dioxide, total 24 mmol/ L 20-29 Not Available [facility] ([facility]) [address] [place], [address], 07/13/2024 14:07:22 07/12/20 24 07/13/2024 COMP. METAB OLIC PANEL (14) calcium 10.0 mg/dL 8.7-10 .3 Not Available [facility] ([facility]) [address] [place], [address], 07/13/2024 14:07:22 07/12/20 24 07/13/2024 COMP. METAB OLIC PANEL (14) protein, total 7.3 g/dL 6.0-8. 5 Not Available [facility] ([facility]) [address] [place], [address], 07/13/2024 14:07:22 07/12/20 24 07/13/2024 COMP. METAB OLIC PANEL (14) albumin 4.7 g/dL 3.9-4. 9 Not Available [facility] ([facility]) [address], [place], [address], 07/13/2024 14:07:22 07/12/20 24 07/13/2024 COMP. METAB OLIC PANEL (14) globulin, total 2.6 g/dL 1.5-4. 5 Not Available [facility] ([facility]) [address], [place], [address], 07/13/2024 14:07:22 07/12/20 24 07/13/2024 COMP. METAB OLIC PANEL (14) bilirubin, total 0.4 mg/dL 0.0-1. 2 Not Available [facility] ([facility]) [address] [place], [address], 07/13/2024 14:07:22 07/12/20 24 07/13/2024 COMP. METAB OLIC PANEL (14) alkaline phosphatase 114 IU/L 44-121 Not Available [facility] [address] [facility] [place], [address], 07/13/2024 14:07:22 07/12/20 24 07/13/2024 COMP. METAB OLIC PANEL (14) AST (SGOT) 35 IU/L 0-40 Not Available [facility] ([facility]) [address] [place], [address], 07/13/2024 14:07:22 07/12/20 24 07/13/2024 COMP. METAB OLIC PANEL (14) ALT (SGPT) 23 IU/L 0-32 Not Available [facility] ([facility]) [address] [facility], [place], [address], 07/13/2024 14:07:22 07/12/20 24 07/13/2024 TSH TSH 1.090 uIU/m L 0.450- 4.500 Not Available [facility] ([facility]) [address] [facility], [place], [address], 07/13/2024 14:07:23 07/12/20 24 07/13/2024 CBC WITH DIFFE RENTI AL/PL ATELE T WBC 6.7 x10e3 /uL 3.4-10 .8 Not Available [facility] ([facility]) [address] [facility], [place], [address], 07/13/2024 14:07:24 07/12/20 24 07/13/2024 CBC WITH DIFFE RENTI AL/PL ATELE T RBC 4.23 x10e6 /uL 3.77-5 .28 Not Available [facility] ([facility]) [address] [facility], [place], [address], 07/13/2024 14:07:24 07/12/20 24 07/13/2024 CBC WITH DIFFE RENTI AL/PL ATELE T hemoglobin 13.3 g/dL 11.1-1 5.9 Not Available [facility] ([facility]) [address] [facility], [place], [address], 07/13/2024 14:07:24 07/12/20 24 07/13/2024 CBC WITH DIFFE RENTI AL/PL ATELE T hematocrit 40.8 % 34.0-4 6.6 Not Available [facility] ([facility]) [address] [facility], [place], [address], 07/13/2024 14:07:24 07/12/20 24 07/13/2024 CBC WITH DIFFE RENTI AL/PL ATELE T MCV 97 fL 79-97 Not Available [facility] ([facility]) [address] [facility], [place], [address], 07/13/2024 14:07:24 07/12/20 24 07/13/2024 CBC WITH DIFFE RENTI AL/PL ATELE T MCH 31.4 pg 26.6-3 3.0 Not Available [facility] ([facility]) [address] [facility], [place], [address], 07/13/2024 14:07:24 07/12/20 24 07/13/2024 CBC WITH DIFFE RENTI AL/PL ATELE T MCHC 32.6 g/dL 31.5-3 5.7 Not Available [facility] ([facility]) [address] [facility], [place], [address], 07/13/2024 14:07:24 07/12/20 24 07/13/2024 CBC WITH DIFFE RENTI AL/PL ATELE T RDW 12.3 % 11.7-1 5.4 Not Available [facility] ([facility]) [address] [facility], [place], [address], 07/13/2024 14:07:24 07/12/20 24 07/13/2024 CBC WITH DIFFE RENTI AL/PL ATELE T platelets 293 x10e3 /uL 150-45 0 Not Available [facility] ([facility]) [address] [facility], [place], [address], 07/13/2024 14:07:24 07/12/20 24 07/13/2024 CBC WITH DIFFE RENTI AL/PL ATELE T neutrophils 48 % notest ab. Not Available [facility] ([facility]) [address] [facility], [place], [address], 07/13/2024 14:07:24 07/12/20 24 07/13/2024 CBC WITH DIFFE RENTI AL/PL ATELE T lymphs 40 % notest ab. Not Available [facility] ([facility]) [address] [facility], [place], [address], 07/13/2024 14:07:24 07/12/20 24 07/13/2024 CBC WITH DIFFE RENTI AL/PL ATELE T monocytes 8 % notest ab. Not Available [facility] ([facility]) [address] [facility], [place], [address], 07/13/2024 14:07:24 07/12/20 24 07/13/2024 CBC WITH DIFFE RENTI AL/PL ATELE T eos 3 % notest ab. Not Available [facility] ([facility]) [address] [facility], [place], [address], 07/13/2024 14:07:24 07/12/20 24 07/13/2024 CBC WITH DIFFE RENTI AL/PL ATELE T basos 1 % notest ab. Not Available [facility] ([facility]) [address] [facility], [place], [address], 07/13/2024 14:07:24 07/12/20 24 07/13/2024 CBC WITH DIFFE RENTI AL/PL ATELE T neutrophils (absolute) 3.2 x10e3 /uL 1.4-7. 0 Not Available [facility] ([facility]) [address] [facility], [place], [address], 07/13/2024 14:07:24 07/12/20 24 07/13/2024 CBC WITH DIFFE RENTI AL/PL ATELE T lymphs (absolute) 2.6 x10e3 /uL 0.7-3. 1 Not Available [facility] ([facility]) [address] [place], [address], 07/13/2024 14:07:24 07/12/20 24 07/13/2024 CBC WITH DIFFE RENTI AL/PL ATELE T monocytes(ab solute) 0.5 x10e3 /uL 0.1-0. 9 Not Available [facility] ([facility]) [address] [place], [address], 07/13/2024 14:07:24 07/12/20 24 07/13/2024 CBC WITH DIFFE RENTI AL/PL ATELE T eos (absolute) 0.2 x10e3 /uL 0.0-0. 4 Not Available [facility] ([facility]) [address] [place], [address], 07/13/2024 14:07:24 07/12/20 24 07/13/2024 CBC WITH DIFFE RENTI AL/PL ATELE T baso (absolute) 0.1 x10e3 /uL 0.0-0. 2 Not Available [facility] ([facility]) [address] [facility], [place], [address], 07/13/2024 14:07:24 07/12/20 24 07/13/2024 CBC WITH DIFFE RENTI AL/PL ATELE T immature granulocytes 0 % notest ab. Not Available [facility] ([facility]) [address] [facility], [place], [address], 07/13/2024 14:07:24 07/12/20 24 07/13/2024 CBC WITH DIFFE RENTI AL/PL ATELE T immature grans (abs) 0.0 x10e3 /uL 0.0-0. 1 Not Available [facility] ([facility]) [address] [place], [address], 07/13/2024 14:07:24 07/12/20 24 07/13/2024 TRIIO DOTHY TIBURCIO E (T3), FREE triiodothyro nine (T3), free 2.9 pg/mL 2.0-4. 4 Not Available [facility] ([facility]) [address] [place], [address], 07/13/2024 14:07:26 11/09/19 25 11/09/2024 LIPID PANEL cholesterol, total 129 mg/dL 100-19 9 Not Available [facility] ([facility]) [address] [place], [address], 11/09/2024 13:22:43 11/09/19 25 11/09/2024 LIPID PANEL triglyceride s 164 mg/dL 0-149 above high normal Not Available [facility] ([facility]) [address] [place], [address], 11/09/2024 13:22:43 11/09/19 25 11/09/2024 LIPID PANEL HDL cholesterol 41 mg/dL >39 Not Available [facility] ([facility]) [address] [place], [address], 11/09/2024 13:22:43 11/09/19 25 11/09/2024 LIPID PANEL VLDL cholesterol billy 28 mg/dL 5-40 Not Available [facility] ([facility]) [address] [place], [address], 11/09/2024 13:22:43 11/09/19 25 11/09/2024 LIPID PANEL LDL chol calc ([facility]) 60 mg/dL 0-99 Not Available [facility] ([facility]) [address] [place], [address], 11/09/2024 13:22:43 11/09/19 25 11/09/2024 T4, FREE T4,free(dire ct) 1.17 NG/dL 0.82-1 .77 Not Available [facility] ([facility]) [address] [place], [address], 11/09/2024 13:22:45 11/09/19 25 11/09/2024 COMP. METAB OLIC PANEL (14) glucose 101 mg/dL 70-99 above high normal Not Available [facility] ([facility]) [address] [place], [address], 11/09/2024 13:22:46 11/09/19 25 11/09/2024 COMP. METAB OLIC PANEL (14) BUN 7 mg/dL 8-27 below low normal Not Available [facility] ([facility]) [address] [facility] [place], [address], 11/09/2024 13:22:46 11/09/19 25 11/09/2024 COMP. METAB OLIC PANEL (14) creatinine 0.57 mg/dL 0.57-1 .00 Not Available [facility] ([facility]) [address] [facility] [place], [address], 11/09/2024 13:22:46 11/09/19 25 11/09/2024 COMP. METAB OLIC PANEL (14) eGFR 98 mL/mi n/1.7 3 >59 Not Available [facility] ([facility]) [address] [facility], [place], [address], 11/09/2024 13:22:46 11/09/19 25 11/09/2024 COMP. METAB OLIC PANEL (14) BUN/creatini ne ratio 12 12-28 Not Available [facility] ([facility]) [address] [facility] [place], [address], 11/09/2024 13:22:46 11/09/19 25 11/09/2024 COMP. METAB OLIC PANEL (14) sodium 130 mmol/ L 134-14 4 below low normal Not Available [facility] ([facility]) [address] [facility] [place], [address], 11/09/2024 13:22:46 11/09/19 25 11/09/2024 COMP. METAB OLIC PANEL (14) potassium 4.3 mmol/ L 3.5-5. 2 Not Available [facility] ([facility]) [address] [facility] [place], [address], 11/09/2024 13:22:46 11/09/19 25 11/09/2024 COMP. METAB OLIC PANEL (14) chloride 92 mmol/ L 96-106 below low normal Not Available [facility] ([facility]) [address] [facility], [place], [address], 11/09/2024 13:22:46 11/09/19 25 11/09/2024 COMP. METAB OLIC PANEL (14) carbon dioxide, total 23 mmol/ L Not Available [facility] ([facility] [address] [facility] [place], [address], 11/09/2024 13:22:46 11/09/19 25 11/09/2024 COMP. METAB OLIC PANEL (14) calcium 9.3 mg/dL 8.7-10 .3 Not Available [facility] ([facility]) [address] [facility] [place], [address], 11/09/2024 13:22:46 11/09/19 25 11/09/2024 COMP. METAB OLIC PANEL (14) protein, total 6.2 g/dL 6.0-8. 5 Not Available [facility] ([facility]) [address] [facility], [place], [address], 11/09/2024 13:22:46 11/09/19 25 11/09/2024 COMP. METAB OLIC PANEL (14) albumin 4.0 g/dL 3.9-4. 9 Not Available [facility] ([facility]) [address] [facility] [place], [address], 11/09/2024 13:22:46 11/09/19 25 11/09/2024 COMP. METAB OLIC PANEL (14) globulin, total 2.2 g/dL 1.5-4. 5 Not Available [facility] ([facility]) [address] [facility] [place], [address], 11/09/2024 13:22:46 11/09/19 25 11/09/2024 COMP. METAB OLIC PANEL (14) bilirubin, total 0.5 mg/dL 0.0-1. 2 Not Available [facility] ([facility]) [address] [facility], [place], [address], 11/09/2024 13:22:46 11/09/19 25 11/09/2024 COMP. METAB OLIC PANEL (14) alkaline phosphatase 93 IU/L 44-121 Not Available [facility] ([facility]) [address] [facility], [place], [address], 11/09/2024 13:22:46 11/09/19 25 11/09/2024 COMP. METAB OLIC PANEL (14) AST (SGOT) 20 IU/L 0-40 Not Available [facility] ([facility]) [address] [facility] [place], [address], 11/09/2024 13:22:46 11/09/19 25 11/09/2024 COMP. METAB OLIC PANEL (14) ALT (SGPT) 15 IU/L 0-32 Not Available [facility] ([facility]) [address] [facility], [place], [address], 11/09/2024 13:22:46 11/09/19 25 11/09/2024 TSH TSH 0.788 uIU/m L 0.450- 4.500 Not Available [facility] ([facility]) [address] [facility], [place], [address], 11/09/2024 13:22:47 11/09/19 25 11/09/2024 CBC WITH DIFFE RENTI AL/PL ATELE T WBC 6.1 x10e3 /uL 3.4-10 .8 Not Available [facility] ([facility]) [address] [place], [address], 11/09/2024 13:22:49 11/09/19 25 11/09/2024 CBC WITH DIFFE RENTI AL/PL ATELE T RBC 3.68 x10e6 /uL 3.77-5 .28 below low normal Not Available [facility] ([facility]) [address] [place], [address], 11/09/2024 13:22:49 11/09/19 25 11/09/2024 CBC WITH DIFFE RENTI AL/PL ATELE T hemoglobin 11.7 g/dL 11.1-1 5.9 Not Available [facility] ([facility]) [address] [place], [address], 11/09/2024 13:22:49 11/09/19 25 11/09/2024 CBC WITH DIFFE RENTI AL/PL ATELE T hematocrit 34.4 % 34.0-4 6.6 Not Available [facility] ([facility]) [address] [place], [address], 11/09/2024 13:22:49 11/09/19 25 11/09/2024 CBC WITH DIFFE RENTI AL/PL ATELE T MCV 94 fL 79-97 Not Available [facility] ([facility]) [address] [place], [address], 11/09/2024 13:22:49 11/09/19 25 11/09/2024 CBC WITH DIFFE RENTI AL/PL ATELE T MCH 31.8 pg 26.6-3 3.0 Not Available [facility] ([facility]) [address] [place], [address], 11/09/2024 13:22:49 11/09/19 25 11/09/2024 CBC WITH DIFFE RENTI AL/PL ATELE T MCHC 34.0 g/dL 31.5-3 5.7 Not Available [facility] ([facility]) [address] [place], [address], 11/09/2024 13:22:49 11/09/19 25 11/09/2024 CBC WITH DIFFE RENTI AL/PL ATELE T RDW 13.1 % 11.7-1 5.4 Not Available [facility] ([facility]) [address] [place], [address], 11/09/2024 13:22:49 11/09/19 25 11/09/2024 CBC WITH DIFFE RENTI AL/PL ATELE T platelets 252 x10e3 /uL 150-45 0 Not Available [facility] ([facility]) [address] [facility], [place], [address], 11/09/2024 13:22:49 11/09/19 25 11/09/2024 CBC WITH DIFFE RENTI AL/PL ATELE T neutrophils 45 % notest ab. Not Available [facility] ([facility]) [address] [facility], [place], [address], 11/09/2024 13:22:49 11/09/19 25 11/09/2024 CBC WITH DIFFE RENTI AL/PL ATELE T lymphs 44 % notest ab. Not Available [facility] ([facility]) [address] [facility], [place], [address], 11/09/2024 13:22:49 11/09/19 25 11/09/2024 CBC WITH DIFFE RENTI AL/PL ATELE T monocytes 7 % notest ab. Not Available [facility] ([facility]) [address] [place], [address], 11/09/2024 13:22:49 11/09/19 25 11/09/2024 CBC WITH DIFFE RENTI AL/PL ATELE T eos 3 % notest ab. Not Available [facility] ([facility]) [address] [facility], [place], [address], 11/09/2024 13:22:49 11/09/19 25 11/09/2024 CBC WITH DIFFE RENTI AL/PL ATELE T basos 1 % notest ab. Not Available [facility] ([facility]) [address] [facility], [place], [address], 11/09/2024 13:22:49 11/09/19 25 11/09/2024 CBC WITH DIFFE RENTI AL/PL ATELE T neutrophils (absolute) 2.8 x10e3 /uL 1.4-7. 0 Not Available [facility] ([facility]) [address] [facility], [place], [address], 11/09/2024 13:22:49 11/09/19 25 11/09/2024 CBC WITH DIFFE RENTI AL/PL ATELE T lymphs (absolute) 2.7 x10e3 /uL 0.7-3. 1 Not Available [facility] ([facility]) [address] [facility], [place], [address], 11/09/2024 13:22:49 11/09/19 25 11/09/2024 CBC WITH DIFFE RENTI AL/PL ATELE T monocytes(ab solute) 0.4 x10e3 /uL 0.1-0. 9 Not Available [facility] ([facility]) [address] [facility], [place], [address], 11/09/2024 13:22:49 11/09/19 25 11/09/2024 CBC WITH DIFFE RENTI AL/PL ATELE T eos (absolute) 0.2 x10e3 /uL 0.0-0. 4 Not Available [facility] ([facility]) [address] [facility], [place], [address], 11/09/2024 13:22:49 11/09/19 25 11/09/2024 CBC WITH DIFFE RENTI AL/PL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
--- OUTSIDE RECORDS SUMMARY | 2024-11-25 15:31 | XMS_ITS | Referral Summary ---
Author Organization [facility] Address [address] [place] [address] Care Team Providers Care Calender Worker Helper Name Role Phone Ranjeet Colby MD Primary Care Provider [phone] Allergies Active Allergy Reactions Criticality Noted Date Comments Hydrocodone-Acetaminophen Nausea And Vomiting Low 0 02/24/2013 Medications atorvastatin (LIPITOR) 20 mg tabletIndication s:hyperlipidemia Take 1 tablet (20 mg total) by mouth nightly Active citalopram (CeleXA) 20 mg tabletIndication s:Anxiety with Depression Take 1 tablet (20 mg total) by mouth nightly Active aspirin 81 mg enteric coated tabletIndication s:Myocardial Reinfarction Prevention,preve ntion of thrombosis Take 1 tablet (81 mg total) by mouth every morning Active ezetimibe (ZETIA) 10 mg tabletIndication s:hyperlipidemia Take 10 mg by mouth every morning Active isosorbide mononitrate ER (IMDUR) 30 mg 24 hr tabletIndication s:prevention of anginal pain in coronary artery disease Take 1 tablet (30 mg total) by mouth every morning Active levothyroxine (SYNTHROID) 25 mcg tabletIndication s:hypothyroidism Take 1 tablet (25 mcg total) by mouth fountain operator before breakfast Active lisinopriL (PRINIVIL,ZESTRI L) 2.5 mg tabletIndication s:hypertension Take 1 tablet (2.5 mg total) by mouth every morning Active omeprazole (PriLOSEC) 40 mg capsuleIndicatio ns:Stress Ulcer Prophylaxis Take 1 capsule (40 mg total) by mouth every morning Active sertraline (ZOLOFT) 50 mg tabletIndication s:Anxiety with Depression Take 50 mg by mouth every morning Active triamterene-hydr oCHLOROthiazide (triamterene-hyd roCHLOROthiazide ) 37.5-25 mg per tablet/capsuleIn dications:blood pressure Take 1 tablet/capsule by mouth every morning Active traZODone (DESYREL) 50 mg tabletIndication s:insomnia associated with depression Take 1 tablet (50 mg total) by mouth nightly Active acetaminophen 500 mg capsuleIndicatio ns:Toothache Take 2 capsules (1,000 mg total) by mouth every 6 (six) hours 30 tablet 1 Active Additional Information Patient not taking.Reported on 02/24/2023 cyclobenzaprine (FLEXERIL) 5 mg tablet Take 1 tablet (5 mg total) by mouth 3 (three) times a day as needed for muscle spasms 1 tablet 1 Active Additional Information Patient not taking.Reported on 02/24/2023 ursodioL (SAL FORTE) 500 mg tablet Take 1 tablet (500 mg total) by mouth 2 (two) times a day 1 tablet 1 Active Additional Information Patient taking differently:500 mg oral 2 times daily,Indications: Primary Biliary Cirrhosis, Reported on 02/24/2023 ramelteon (ROZEREM) 8 mg tabletIndication s:Sleep-Onset Insomnia Take 1 tablet (8 mg total) by mouth nightly 1 tablet 1 Active Additional Information Patient not taking.Reported on 02/24/2023 polyethylene glycol (MIRALAX) 17 gram packetIndication s:constipation Take 1 packet (17 g total) by mouth daily 1 packet 1 Active Additional Information Patient not taking.Reported on 02/24/[address] (PROTONIX) 40 mg EC tabletIndication s:Treatment of Non-Bleeding Gastric Disorder Take 1 tablet (40 mg total) by mouth daily 1 tablet 1 Active Additional Information Patient not taking.Reported on 02/24/2023 bisacodyL (DULCOLAX) 10 mg suppositoryIndic ations:constipat ion Insert 10 mg into the rectum daily as needed for constipation Active senna (SENOKOT) 8.6 mg tabletIndication s:constipation Take 2 tablets by mouth 2 (two) times a day 60 tablet 1 Active Additional Information Patient not taking.Reported on 02/24/2023 traMADoL (ULTRAM) 50 mg tablet Take 1 tablet (50 mg total) by mouth every 6 (six) hours as needed for pain 28 tablet 2 Active Additional Information Patient not taking.Reported on 02/24/[address] (NexIUM) 40 mg capsule 40 mg 1 Active ondansetron (ZOFRAN) 4 mg tablet 4 mg 1 Active oxyCODONE (ROXICODONE) 5 mg immediate release tablet 1 Active ondansetron (ZOFRAN) 4 mg tablet 1 Active naproxen (NAPROSYN) 500 mg tablet Take 1 tablet (500 mg total) by mouth 2 (two) times a day with meals 28 tablet 2 Active Additional Information Patient not taking.Reported on 02/24/2023 gabapentin (NEURONTIN) 300 mg capsule Take 1 capsule (300 mg total) by mouth 3 (three) times a day 30 capsule 2 Active Active Problems Problem Noted Date Diagnosed Date Memory loss 02/24/2023 Fracture of medial plateau o f right tibia, closed, with routine healing, subsequent encounter 05/31/2021 Overview (05/31/2021): Added automatically from request for surgery [id number] Coronary atherosclerosis 05/28/2021 Closed fracture of proximal end of right fibula 05/27/2021 HTN (hypertension) 05/27/2021 Hypothyroidism 05/27/2021 Hyperlipidemia 05/27/2021 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 05/27/2021 Acute traumatic pain 05/27/2021 Fracture of tibial plateau 05/26/2021 Overview (05/27/2021): Added automatically from request for surgery [id number] Closed fracture of lateral portion of right tibi al plateau 05/26/2021 Overview (05/29/2021): Added automatically from request for surgery [id number] Social History Tobacco Use Types Packs/Day Years Used Date Smoking Tobacco: Every Day Cigarettes 1 45 Smokeless Tobacco: Never Tobacco Cessation:Ready to Q uit: Not Asked; Counseling Given: Not Answered Alcohol Use Standard Drinks/Week Comments Not Currently 0 (1 standard drink = 0.6 oz pur e alcohol) AUDIT-C Answer Date Recorded Q1: How often do you have a drink containing alc ohol? 2-4 times a month 06/12/2021 Q2: How many drinks containi ng alcohol do you have on a typical day when you are drinking? 1 or 2 06/12/2021 Q3: How often do you have si x or more drinks on one occasion? Never 06/12/2021 Personal Safety Answer Date Recorded Have you ever been in or are you currently in a harmful physical or emotional relationship or is someone making you feel afraid or unsafe? 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 Gender Identity Not on file Sexual Orientation Not on file Last Filed Vital Signs Vital Sign Reading Time Taken Comments Blood Pressure 132/57 03/10/2024 7:30 PM CDT Pulse 61 03/10/2024 7:30 PM CDT Temperature 36.4 C (97.6 F) 03/10/2024 3:18 PM CDT Respiratory Rate 14 03/10/2024 7:30 PM CDT Oxygen Saturation 95% 03/10/2024 7:30 PM CDT Inhaled Oxygen Concentration - - Weight 70.3 kg (155 lb) 03/10/2024 11:17 AM CDT Height 160 cm (5' 3 ) 02/24/2023 10:44 AM CDT Body Mass Index 27.46 02/24/2023 10:44 AM CDT Plan of Treatment Not on file Medical Devices Implanted Type Area Blasting Machine Operator Device Identifier Shelf Expiration Date Model / Serial / Lot Allosource [id number] Cubes Graft 15ml Bone Cancellous - [id number] - [id number] Implanted:Qty: 1 on 06/12/2021 by Sara Johnson MD at [facility] Bone Right: Leg Allosource 11/26/2025 [id number] / [id number] / Description:AlloSource ID: [id number] [employer]Rich[employer]/Orth o [id number] Evos 113x11.5x3.6mm 32.3x1.9mm 8 Hole Low Profile Variable Angle - [id number] Implanted:Qty: 1 on 06/12/2021 by Sara Johnson MD at [facility] Plate Right: Tibia [employer]Rich[employer]/O rtho [id number] / / [employer]/Orth o [id number] Evos 3.5mm 70mm Self Tap Lock Screw Bone Sterile - [id number] Implanted:Qty: 3 on 06/12/2021 by Sara Johnson MD at [facility] Screw Right: Tibia [employer]Rich[employer]/O rtho [id number] / / [employer]/Orth o [id number] Evos 3.5mm 65mm Self Tap Lock Screw Bone Sterile - [id number] Implanted:Qty: 1 on 06/12/2021 by Sara Johnson MD at [facility] Screw Right: Tibia [employer]/O rtho [id number] / / [employer]/Orth o [id number] Evos 3.5mm 38mm Self Tap Lock Screw Bone Sterile - [id number] Implanted:Qty: 1 on 06/12/2021 by Sara Johnson MD at [facility] Screw Right: Tibia [employer]/O rtho [id number] / / [employer]/Orth o [id number] Evos 3.5mm 28mm Self Tap Lock Screw Bone Sterile - [id number] Implanted:Qty: 1 on 06/12/2021 by Sara Johnson MD at [facility] Screw Right: Tibia [employer]/O rtho [id number] / / [employer]/Orth o [id number] Evos 3.5mm 34mm Self Tap Cortex Screw Bone Sterile - [id number] Implanted:Qty: 1 on 06/12/2021 by Sara Johnson MD at [facility] Screw Right: Tibia [employer]/O rtho [id number] / / [employer]/Orth o [id number] - [id number] Implanted:Qty: 1 on 06/12/2021 by Sara Johnson MD at [facility] Screw Right: Tibia [employer]/O rtho [id number] / / Synthes 294.55sha Pin 5mm 170mm Half Stainless Steel Hydroxyapatite Troc Blnt - [id number] Implanted:Qty: 4 on 05/27/2021 by Arthur Wiseman MD at [facility] Right: Leg Synthes I 294.55SHA / / [employer]Rich[employer]/Orth o [id number] Evos 3.5mm 32mm Self Tap Cortex Screw Bone Sterile - [id number] Implanted:Qty: 1 on 05/30/2021 by Sara Johnson MD at [facility] Right: Tibia [employer]/O rtho [id number] / / [employer]/Orth o [id number] Evos 3.5mm 30mm Self Tap Lock Screw Bone Sterile - [id number] Implanted:Qty: 1 on 05/30/2021 by Sara Johnson MD at [facility] Right: Tibia [employer]/O rtho [id number] / / [employer]/Orth o [id number] Evos 3.5mm 22mm Self Tap Cortex Screw Bone Sterile - [id number] Implanted:Qty: 1 on 05/30/2021 by Sara Johnson MD at [facility] Right: Tibia [employer]/O rtho [id number] / / [employer]/Orth o [id number] Evos 3.5mm 26mm Self Tap Lock Screw Bone Sterile - [id number] Implanted:Qty: 1 on 05/30/2021 by Sara Johnson MD at [facility] Right: Tibia [employer]/O rtho [id number] / / [employer]/Orth o [id number] Evos 3.5mm 36mm Self Tap Lock Screw Bone Sterile - [id number] Implanted:Qty: 1 on 05/30/2021 by Sara Johnson MD at [facility] Right: Tibia [employer]/O rtho [id number] / / [employer]/Orth o [id number] Evos 3.5mm 34mm Self Tap Lock Screw Bone Sterile - [id number] Implanted:Qty: 1 on 05/30/2021 by Sara Johnson MD at [facility] Right: Tibia [employer]/O rtho [id number] / / [employer]/Orth o [id number] Evos 138mm 10 Hole Tibia Right Proximal Medial Plate Bone Sterile - [id number] Implanted:Qty: 1 on 05/30/2021 by Sara Johnson MD at [facility] Right: Tibia [employer]/O rtho [id number] / / Explanted Type Area Blasting Machine Operator Device Identifier Shelf Expiration Date Model / Serial / Lot [employer] Instruments 1600-9625ns Claudia .062in 9in [place] One End Orthopedic Wire - [id number] Explanted:Qty: 2 on 05/30/2021 at [facility] Right: Tibia [employer] 1600-9625N S / / [employer] 1600-9455ns Claudia .45in 9in 1 [place] Orthopedic Wire Fixation - [id number] Explanted:Qty: 1 on 06/12/2021 by Sara Johnson MD at [facility] Right: Tibia [employer] 1600-9455N S / / [employer] 1600-9625ns Claudia .062in 9in [place] One End Orthopedic Wire - [id number] Explanted:Qty: 2 on 06/12/2021 by Sara Johnson MD at [facility] Right: Tibia [employer] 1600-9625N S / / Synthes 294.786 Schanz 5mm 200mm 80mm Self Drill Mr Conditional Screw External - [id number] Explanted:Qty: 2 on 06/12/2021 by Sara Johnson MD at [facility] Right: Tibia Synthes I 294.786 / / Insurance MEDICARE COMMERCIAL GENERIC MEDICARE COMMERCIAL GENERIC MEDICARE [facility] FINANCIAL Advance Directives For more information, please contact: [phone] * Full Code (Latest Code Status on File) Date Activated Date Inactivated Comments 05/27/2021 1:56 PM 06/03/2021 10:45 PM Care Teams Calender Worker Helper Relationship Specialty Start Date End Date Ranjeet Colby MD PCP - General 06/21/19
--- OUTSIDE RECORDS SUMMARY | 2024-11-25 15:31 | XMS_ITS | Clinical Summary ---
Author Organization [facility] Address [address] [place] [address] Care Team Providers Care Revenue Accountant Name Role Phone Ranjeet Colby MD Primary Care Provider [phone] Allergies Active Allergy Reactions Criticality Noted Date [...] 1 tablet (25 mcg total) by mouth warehouse checker before breakfast Active lisinopriL (PRINIVIL,ZESTRI L) 2.5 [...] (05/31/2021): Added automatically from request for surgery [id number] Coronary atherosclerosis 05/28/2021 Closed fracture of proximal end of right fibula 05/27/2021 HTN (hypertension) 05/27/2021 Hypothyroidism 05/27/2021 Hyperlipidemia 05/27/2021 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 05/27/2021 Acute traumatic pain 05/27/2021 Fracture of tibial plateau 05/26/2021 Overview (05/27/2021): Added automatically from request for surgery [id number] Closed fracture of lateral portion of right tibi al plateau 05/26/2021 Overview (05/29/2021): Added automatically from request for surgery [id number] Surgical History Surgery Date Site/Laterality Comments BACK SURGERY 08/03/1998 - 08/02/1999 back surgery. 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 Gender Identity Not on file Sexual Orientation Not on file Obstetrics History Last Filed Vital Signs Vital Sign Reading [...] 02/24/2023 10:44 AM CDT Plan of Treatment Health Maintenance Due Date Last Done Comments Breast Cancer Screening-Mammogram 1954 Colon Cancer Screening-Colonoscopy 1955 Depression Screening 1954 Hepatitis C Screening 1954 Hepatitis B Screening 01/17/1972 Pneumococcal vaccine 65+ (1 of 2 - PCV) 1973 Lung Cancer Screening 01/17/2004 Zoster Vaccine (1 of 2) 01/17/2004 DTaP/Tdap/Td Vaccine (1 - Tdap) 04/09/2013 3 Well Visit 65+ 2019 Fall Risk Assessment 06/12/2022 06/12/2021 Covid-19 Vaccine (4 - 2023-2 5 season) 2024 08/28/2021, 11/18/2020, 10/12/2020 Influenza Vaccine (#1) 2024 , 06/29/2020, 06/09/2019, Additional history exists Osteoporosis Screening-Bone Density Scan 04/02/2025 04/02/2023 Medical Devices Implanted Type Area Sewer Pipe Offbearer Device Identifier Shelf Expiration Date Model / Serial / Lot Allosource [id number] Cubes Graft 15ml Bone Cancellous - [id number] - [id number] Implanted:Qty: 1 on 06/12/2021 by Sara Johnson MD at [facility] Bone Right: Leg Allosource 11/26/2025 [id number] / [id number] / Description:AlloSource ID: [id number] [employer]Orth o [id number] Evos 113x11.5x3.6mm 32.3x1.9mm 8 Hole Low Profile Variable Angle - [id number] Implanted:Qty: 1 on 06/12/2021 by Sara Johnson MD at [facility] Plate Right: Tibia [employer]/O rtho [id number] / / [employer]/Orth o [id number] Evos 3.5mm 70mm Self Tap Lock Screw Bone Sterile - [id number] Implanted:Qty: 3 on 06/12/2021 by Sara Johnson MD at [facility] Screw Right: Tibia [employer]/O rtho [id number] / / [employer]/Orth o [id number] Evos 3.5mm 65mm Self Tap Lock Screw Bone Sterile - [id number] Implanted:Qty: 1 on 06/12/2021 by Sara Johnson MD at [facility] Screw Right: Tibia [employer]/O rtho [id number] / / [employer]/Orth o [id number] Evos 3.5mm 38mm Self Tap Lock Screw Bone Sterile - [id number] Implanted:Qty: 1 on 06/12/2021 by Sara Johnson MD at [facility] Screw Right: Tibia [employer]/O rtho [id number] / / [employer]/Orth o [id number] Evos 3.5mm 28mm Self Tap Lock Screw Bone Sterile - [id number] Implanted:Qty: 1 on 06/12/2021 by Sara Johnson MD at [facility] Screw Right: Tibia [employer]O rtho [id number] / / [employer]/Orth o [id number] Evos 3.5mm 34mm Self Tap Cortex Screw Bone Sterile - [id number] Implanted:Qty: 1 on 06/12/2021 by Sara Johnson MD at [facility] Screw Right: Tibia [employer]O rtho [id number] / / [employer]/Orth o [id number] - [id number] Implanted:Qty: 1 on 06/12/2021 by Sara Johnson MD at [facility] Screw Right: Tibia [employer]/O rtho [id number] / / Synthes 294.55sha Pin 5mm 170mm Half Stainless Steel Hydroxyapatite Troc Blnt - [id number] Implanted:Qty: 4 on 05/27/2021 by Arthur Wiseman MD at [facility] Right: Leg Synthes I 294.55SHA / / [employer]/Orth o [id number] Evos 3.5mm 32mm Self Tap Cortex Screw Bone Sterile - [id number] Implanted:Qty: 1 on 05/30/2021 by Sara Johnson MD at [facility] Right: Tibia [employer]/O rtho [id number] / / [employer]/Orth o [id number] Evos 3.5mm 30mm Self Tap Lock Screw Bone Sterile - [id number] Implanted:Qty: 1 on 05/30/2021 by Sara Johnson MD at [facility] Right: Tibia [employer]/O rtho [id number] / / [employer]/Orth o [id number] Evos 3.5mm 22mm Self Tap Cortex Screw Bone Sterile - [id number] Implanted:Qty: 1 on 05/30/2021 by Sara Johnson MD at [facility] Right: Tibia [employer]/O rtho [id number] / / [employer]/Orth o [id number] Evos 3.5mm 26mm Self Tap Lock Screw Bone Sterile - [id number] Implanted:Qty: 1 on 05/30/2021 by Sara Johnson MD at [facility] Right: Tibia [employer]/O rtho [id number] / / [employer]/Orth o [id number] Evos 3.5mm 36mm Self Tap Lock Screw Bone Sterile - [id number] Implanted:Qty: 1 on 05/30/2021 by Sara Johnson MD at [facility] Right: Tibia [employer]/O rtho [id number] / / [employer]/Orth o [id number] Evos 3.5mm 34mm Self Tap Lock Screw Bone Sterile - [id number] Implanted:Qty: 1 on 05/30/2021 by Sara Johnson MD at [facility] Right: Tibia [employer]/O rtho [id number] / / [employer]/Orth o [id number] Evos 138mm 10 Hole Tibia Right Proximal Medial Plate Bone Sterile - [id number] Implanted:Qty: 1 on 05/30/2021 by Sara Johnson MD at [facility] Right: Tibia [employer]/O rtho [id number] / / Explanted Type Area Sewer Pipe Offbearer Device Identifier Shelf Expiration Date Model / Serial / Lot [employer] 1600-9625ns Claudia .062in 9in [place] One End Orthopedic Wire - [id number] Explanted:Qty: 2 on 05/30/2021 at [facility] Right: Tibia [employer] 1600-9625N S / / [employer] 1600-9455ns Claudia .45in 9in 1 [place] Orthopedic Wire Fixation - [id number] Explanted:Qty: 1 on 06/12/2021 by Sara Johnson MD at [facility] Right: Tibia [employer] 1600-9455N S / / [employer] 1600-9625ns Claudia .062in 9in [place] One End Orthopedic Wire - [id number] Explanted:Qty: 2 on 06/12/2021 by Sara Johnson MD at [facility] Right: Tibia [employer] 1600-9625N S / / Synthes 294.786 Schanz 5mm 200mm 80mm Self Drill Mr Conditional Screw External - [id number] Explanted:Qty: 2 on 06/12/2021 by Sara Johnson MD at [facility] Right: Tibia Synthes I 294.786 / / Insurance MEDICARE COMMERCIAL GENERIC MEDICARE COMMERCIAL GENERIC MEDICARE [facility] FINANCIAL Advance Directives For more information, please contact: [phone] * Full Code (Latest Code Status on File) Date Activated Date Inactivated Comments 05/27/2021 1:56 PM 06/03/2021 10:45 PM Care Teams Revenue Accountant Relationship Specialty Start Date End Date Ranjeet Colby MD PCP - General 06/21/19
--- OUTSIDE RECORDS SUMMARY | 2024-11-25 15:32 | XMS_ITS | CONTINUITY OF CARE DOCUMENT ---
Author Name zuri, zuri Address Unknown Organization [facility] Address [address] [facility] [address] [place] [address] Phone [phone] Care Team Providers Care Audiovisual Aids Technician Name Role Phone Min Elizalde MD Unavailable GILBERT PECK, STEFAN Aclazar Unavailable STEFAN HUNT MD Unavailable [phone] PROBLEMS Condition Status Date Provider Notes Hypercholesterolemia active Rae Moctezuma RN Dyspnea on exertion active Diego Traylor CHEST PAIN-?TYPE, NEG STRESS ECHO AND GB 2006 active - Min Elizalde MD DEPRESSION active Min Elizalde MD FIBROMYALGIA active Min Elizalde MD ABNORMAL ELECTROCARDIOGRAM:H OSP STRESS ECHO NEG? active - Min Elizalde MD FAMILY HX CARDIOVASCULAR DISEASE active Mikey Elizalde MD STENT;XENCIE 12 TO OM, OPEN 13 active Marcelo Elizalde MD HIATAL HERNIA;barretts, lymphocitic colitis active Min Elizalde MD PRIMARY BILIARY CIRRHOSIS;NE G GB US, nml prottime, mild liver dz active Min Elizalde MD ISCHEMIA;FALSE NEG SUB MAX N UC 12, RESIDUAL 40% RCA P STENT active - Min Elizalde MD DIASTOLIC DYSFUNCTION;NML EF 08 AND 11 completed - Min Elizalde MD DIASTOLIC DYSFUNCTION;NML EF 2011 AND 14 active Min Elizalde MD AORTIC VALVE SCLEROSIS;12 completed 02/18 - Min Elizalde MD VENOUS INSUFFICIENCY;NEG DUP DONN 12 active Min Elizalde MD ISCHEMIA;POS STRESS/NEG NUC 12, 50% RCA 13 active Min Elizalde MD hx of DIASTOLIC CHF;pro bnp 345 active Yamilka Elizalde MD MICROVASCULAR ANGINA; active Min Elizalde MD PVD;JUAN .87 13 active Min Elizalde MD DYSPNEA ON EXERTION;LIKELY PULMANREY completed - Min Elizalde MD LVH;nml ef 14 active Min Elizalde MD Left atrial enlargement active Min jennings MD PANCREATITIS; active Min Elizalde MD CAD;mild carotid plaquing active Min talbert MD Overweight;did not want medifast active Mikey Elizalde MD TOBACCO ABUSE active Min Elizalde MD LOW HDL;ON NIASPAN completed - Min Elizalde MD ANGINA PECTORIS:RARE completed - Min Elizalde MD HYPOTHYROIDISM;ON RX PER PRIMARY active Mikey Elizalde MD LIVER DISEASE:NEG GB 2006 completed - Min Elizalde MD HTN ESSENTIAL;LABS PER PRIMA RY NEG RENAL ANGIO 05/10 active Min Elizalde MD HYPERCHOLESTEROLEMIA;GOOD 13 active Min Elizalde MD ENCOUNTERS Date Type Provider Location Encounter Diag nosis - In-person encounter Office Visit Min Elizalde MD [place] [facility] HIATAL HERNIA;barretts, lymphocitic colitisPRIMARY BILIARY CIRRHOSIS;NEG GB US, nml prottime, mild liver dzOverweight;did not want medifastDIASTOLIC DYSFUNCTION;NML EF 2012 AND 14CAD;mild carotid plaquinghx of DIASTOLIC CHF;pro bnp 345DYSPNEA ON EXERTION;LIKELY PULMANREYLVH;nml ef 14Left atrial enlargement - In-person encounter Office Visit Min Elizalde MD [place] [facility] Overweight;did not want medifastDIASTOLIC DYSFUNCTION;NML EF 2012 AND 14MICROVASCULAR ANGINA;PANCREATITIS;PVD; JUAN .87 13 - In-person encounter Office Visit Min Elizalde MD [place] [facility] HYPERCHOLESTEROLEMIA;GOO D 13STENT;XENCIE 12 TO OM, OPEN 13LOW HDL;ON NIASPANOverweight;did not want medifastISCHEMIA;POS STRESS/NEG NUC 12, 50% RCA 13hx of DIASTOLIC CHF;pro bnp 345MICROVASCULAR ANGINA;PANCREATITIS; - In-person encounter Office Visit Candido Diaz MD [place] [facility] - In-person encounter Office Visit Min Elizalde MD [place] [facility] STENT;XENCIE 12 TO OM, OPEN 13ISCHEMIA;FALSE NEG SUB MAX NUC 12, RESIDUAL 40% RCA P STENTDIASTOLIC DYSFUNCTION;NML EF 08 AND 11DIASTOLIC DYSFUNCTION;NML EF 2012 AND 14AORTIC VALVE SCLEROSIS;12VENOUS INSUFFICIENCY;NEG DUPLEX 12ISCHEMIA;POS STRESS/NEG NUC 12, 50% RCA 13 - In-person encounter Office Visit Carlitos Perry MD [place] [facility] STENT;XENCIE 12 TO OM, OPEN 13 - In-person encounter Office Visit Min Elizalde MD [place] [facility] HYPERCHOLESTEROLEMIA;GOO D 13Overweight;did not want medifastDIASTOLIC DYSFUNCTION;NML EF 2012 AND 14CAD;mild carotid plaquingVENOUS INSUFFICIENCY;NEG DUPLEX 12 - In-person encounter Office Visit Min Elizalde MD [place] [facility] HYPERCHOLESTEROLEMIA;GOO D 13HTN ESSENTIAL;LABS PER PRIMARY NEG RENAL ANGIO 05/10LIVER DISEASE:NEG GB 2006HYPOTHYROIDISM;ON RX PER PRIMARYSTENT;XENCIE 12 TO OM, OPEN 13ANGINA PECTORIS:RAREPRIMARY BILIARY CIRRHOSIS;NEG GB US, nml prottime, mild liver dzDIASTOLIC DYSFUNCTION;NML EF 08 AND 11TOBACCO ABUSEOverweight;did not want medifastDIASTOLIC DYSFUNCTION;NML EF 2012 AND 14CAD;mild carotid plaquing - In-person encounter Office Visit Min Elizalde MD [place] [facility] HYPERCHOLESTEROLEMIA;GOO D 13HTN ESSENTIAL;LABS PER PRIMARY NEG RENAL ANGIO 05/10CHEST PAIN-?TYPE, NEG STRESS ECHO AND GB 2006ABNORMAL ELECTROCARDIOGRAM:HOSP STRESS ECHO NEG?STENT;XENCIE 12 TO OM, OPEN 13HIATAL HERNIA;barretts, lymphocitic colitisLOW HDL;ON NIASPAN - In-person encounter Office Visit Min Elizalde MD [place] [facility] HYPERCHOLESTEROLEMIA;GOO D 13HTN ESSENTIAL;LABS PER PRIMARY NEG RENAL ANGIO 05/10DEPRESSIONFIBROMYAL GIALIVER DISEASE:NEG GB 2006FAMILY HX CARDIOVASCULAR DISEASEHYPOTHYROIDISM;ON RX PER PRIMARY VITAL SIGNS Date Observation Value Provider Body Mass Index (Ratio) 28.12 kg/m2 [place] i Emily blood pressure, diastolic 60 mm[Hg] Ke rri Emily blood pressure, systolic 110 mm[Hg] Alina Diaz pulse rate 68 /min Marisela Sarmiento [facility] oxygen saturation, oximetry 96 % Marisela Diaz respiratory rate E&M 16 /min Marisela cochran weight E&M 144 [lb_av] Marisela Sarmiento er Body Mass Index (Ratio) 28.03 kg/m2 Chasidy tho Neri blood pressure, diastolic 70 mm[Hg] Me russ Halle blood pressure, systolic 132 mm[Hg] Analia hilary [place] pulse rate 82 /min Charley Neri oxygen saturation, oximetry 97 % Charley Neri respiratory rate E&M 14 /min Charley Neri weight E&M 143 [lb_av] Charley Neri blood pressure, diastolic, left arm 75 mm [Hg] Ryan Guerin RN blood pressure, systolic, left arm 126 mm [Hg] Ryan Guerin RN blood pressure, diastolic, right arm 81 m m[Hg] Ryan Guerin RN blood pressure, systolic, right arm 141 m m[Hg] Ryan Guerin RN blood pressure, diastolic 75 mm[Hg] Thong baig Guerin RN blood pressure, systolic 126 mm[Hg] Ryan Guerin RN pulse rate 76 /min Ryan Guerin RN oxygen saturation, oximetry 98 % Ryan Guerin RN respiratory rate E&M 18 /min Ryan Samaria bruno RN Body Mass Index (Ratio) 29.60 kg/m2 Ryan Guerin [place] weight E&M 151 [lb_av] Ryan Guerin RN blood pressure, diastolic 72 mm[Hg] Thong baig Guerin RN blood pressure, systolic 130 mm[Hg] Ryan Guerin RN pulse rate 75 /min Ryan Guerin RN oxygen saturation, oximetry 95 % Ryan Guerin EL[place] respiratory rate E&M 16 /min Ryan chowdarys RN Body Mass Index (Ratio) 29.40 kg/m2 Ryan Guerin [place] height E&M 60 [in_i] Ryan Guerin RN weight E&M 150 [lb_av] Ryan Guerin EL[place] blood pressure, diastolic, left arm 82 mm [Hg] Srikanth Manacop blood pressure, systolic, left arm 144 mm [Hg] Srikanth [place] blood pressure, diastolic, right arm 74 m m[Hg] Srikanth [place] blood pressure, systolic, right arm 142 m m[Hg] Srikanth [place] blood pressure, diastolic 74 mm[Hg] Chasidy seph [place] blood pressure, systolic 142 mm[Hg] Sam marcus [place] pulse rate 73 /min Srikanth [place] oxygen saturation, oximetry 99 % Srikanth [place] respiratory rate E&M 16 /min Srikanth [place] weight E&M 155.8 [lb_av] Srikanth [place] blood pressure, diastolic 88 mm[Hg] Thong Guerin RN blood pressure, systolic 140 mm[Hg] Ryan Guerin RN pulse rate 74 /min Ryan Guerin RN oxygen saturation, oximetry 98 % Ryan Guerin RN respiratory rate E&M 16 /min Ryan bruno RN weight E&M 155 [lb_av] Ryan Guerin RN blood pressure, diastolic 76 mm[Hg] Thong Guerin RN blood pressure, systolic 131 mm[Hg] Ryan Guerin RN pulse rate 71 /min Ryan Guerin RN oxygen saturation, oximetry 95 % Ryan Guerin RN respiratory rate E&M 18 /min Ryan bruno RN weight E&M 159 [lb_av] Ryan Guerin RN blood pressure, diastolic, left arm 80 mm [Hg] Ryan Guerin RN blood pressure, systolic, left arm 135 mm [Hg] Ryan Guerin RN blood pressure, diastolic, right arm 89 m m[Hg] Ryan Guerin RN blood pressure, systolic, right arm 147 m m[Hg] Ryan Guerin RN blood pressure, diastolic 80 mm[Hg] Thong Guerin RN blood pressure, systolic 135 mm[Hg] Ryan Guerin RN pulse rate 75 /min Ryan Guerin RN oxygen saturation, oximetry 95 % Ryan Guerin RN respiratory rate E&M 16 /min Ryan bruno RN weight E&M 155 [lb_av] Ryan Guerin RN blood pressure, diastolic 83 mm[Hg] Chasidy seph [place] blood pressure, systolic 142 mm[Hg] Sam eph [place] pulse rate 108 /min Srikanth [place] oxygen saturation, oximetry 96 % Srikanth [place] respiratory rate E&M 16 /min Srikanth Manmihir weight E&M 179 [lb_av] Srikanth Dameonmihir blood pressure, diastolic 87 mm[Hg] Thong safia Castillotrixie ALMEIDA blood pressure, systolic 140 mm[Hg] Ryan Castillotrixie ALMEIDA pulse rate 88 /min Ryan Castillotrixie ALME[place] oxygen saturation, oximetry 96 % Ryan Castillotrixie ALMEIDA respiratory rate E&M 16 /min Ryan bruno RN weight E&M 170 [lb_av] Ryan Guerin RN ALLERGIES Allergy Name Onset Date Reaction Criticality Status LYRICA Low Criticality active DARVON Low Criticality active VICODIN Low Criticality active CRESTOR Low Criticality active RESULTS Date Observation Value Provider Reference Range Interpretation Location prothrombin time (patient) 10.3 s Marisela Diaz international normalized ratio (INR) 1.0 Marisela Diaz Normal triglyceride, serum, fasting 147 mg/dL Ryan Castillotrixie [place] HDL cholesterol, serum 52 mg/dL Ryan Castillotrixie [place] LDL cholesterol, serum 80 mg/dL Ryan Castillotrixie [place] cholesterol, serum 162 mg/dL Ryan Castillotrixie [place] platelet count 320 10*3/mm3 Leandro Bell hematocrit, blood 36.6 % Leandro Bell international normalized ratio (INR) 1.0 Leandro Bell B-type natriuretic peptide 345 pg/mL Leandro Bell alanine aminotransferase (SGPT), serum 36 1/L Leandro Bell aspartate aminotransferase (SGOT), serum 29 1/L Leandro Bell creatinine, serum 0.70 mg/dL Leandro Bell potassium, serum 4.8 mmol/L Leandro Bell sodium, serum 144 mmol/L Leandro Bell LDL cholesterol, serum 64 mg/dL Leandro Bell cholesterol, serum 148 mg/dL Leandro Bell thyroid stimulating hormone, serum 1.020 u[IU]/mL Leandro Bell platelet count 300 10*3/mm3 Leandro Bell hematocrit, blood 39.1 % Leandro Bell international normalized ratio (INR) 0.9 Leandro Bell alanine aminotransferase (SGPT), serum 15 1/L [facility] aspartate aminotransferase (SGOT), serum 19 1/L Leandro Bell creatinine, serum 0.6 mg/dL Leandro Bell potassium, serum 3.5 mmol/L Leandro Bell sodium, serum 133 mmol/L Leandro Bell prothrombin time (patient) 10.7 s Rae Malagon RN international normalized ratio (INR) 1.1 Rae Malagon RN blood glucose, fasting 118 mg/dL Rae Malagon RN creatinine, serum 0.72 mg/dL Rae Malagon RN urea nitrogen, blood 5 mg/dL Rae Malagon RN potassium, serum 4.1 mmol/L Rae Malagon RN sodium, serum 137 mmol/L Rae Malagon RN platelet count 308 10*3/uL Rae Malagon RN hematocrit, blood 40.5 % Rae Malagon RN hemoglobin, blood 13.4 g/dL Rae Malagon RN erythrocyte (RBC) count 4.46 10*6/mm3 Rae Malagon RN leukocyte count, blood 5.7 10*3/mm3 Rae Malagon RN HISTORY OF MEDICATION USE Medication Status Instructions Dates Provider Indications Com ments CVS MELATONIN CAPSULE active take one pill at bedtime Marisela Diaz PROBIOTIC ORAL CAPSULE active take one pill a day Marisela Diaz FORMULA TABLET active take one pill a day Marisela Diaz LIALDA TABLET DELAYED RELEASE active take 4 pills a day Marisela Diaz BUDESONIDE 3 MG ORAL CAPSULE DELAYED RELEASE PARTICLES completed once daily - Marisela Diaz XANAX 0.25 MG ORAL TABLET active twice a day as needed Min Elizalde MD SOMA 350 MG ORAL TABLET completed - Charley Neri ISOSORBIDE MONONITRATE ER 30 MG ORAL TABLET EXTENDED RELEASE 24 HOUR active 1 tab po daily. Candido Diaz MD TRAZODONE HCL 50 MG ORAL TABLET active ONE A DAY Min Elizalde MD BUSPAR 5MG completed 1 tablet by mouth twice daily as needed - Ryan Guerin RN LASIX 20 MG ORAL TABLET completed 1 tablet by mouth daily as needed - Ryan Guerin RN EFFIENT 10 MG ORAL TABLET completed One tablet daily - Charley Neri OMEGA-3 FISH OIL 1000 MG ORAL CAPSULE completed One tab. daily - Srikanth Harper VITAMIN D completed - Srikanth Harper CELEXA 20 MG ORAL TABLET active take one pill a day Marisela Diaz OMEPRAZOLE 20 MG ORAL CAPSULE DELAYED RELEASE active ONE TAB. DAILY Ryan Guerin RN NIASPAN 1000 MG ORAL TABLET EXTENDED RELEASE completed ONE TAB. AT BEDTIME - Marisela Diaz ZESTRIL 2.5 MG ORAL TABLET active ONE TAB. DAILY Min Elizalde MD ASPIRIN 81 MG ORAL TABLET active ONE TAB. DAILY Min Elizalde MD TRIAMTERENE-HCT Z 37.5-25 MG ORAL TABLET active ONE TAB. DAILY Elizabeth Rey URSOFORTE 500MG active TAKE TWO TABLETS DAILY Elizabeth Rey PREVACID 30 MG ORAL CAPSULE DELAYED RELEASE completed ONE TAB. DAILY - Ryan Guerin RN LEVOTHROID 50 MCG TABS active ONE TAB. DAILY Elizabeth Dixon ETODOLAC ER 400MG completed TAKE ONE TABLET DAILY - Ryan Guerin RN LIPITOR 20 MG ORAL TABLET completed ONE TAB. DAILY - Marisela Diaz CYMBALTA 30 MG ORAL CAPSULE DELAYED RELEASE PARTICLES completed TAKE ONE TABLET BY MOUTH DAILY - Ryan Guerin RN SOCIAL HISTORY Date Observation Value Provider smoking history, tot al pack/year 43 Rae Moctezuma RN smoking/tobacco cess ation, patient education and counseling yes Min Elizalde MD social history reviewed E&M revaugustus ewed - no changes required Min Elizalde MD alcohol use, average drinks per day social Marisela Diaz alcohol use yes Marisela Torsten polanco number of years as a smoker 42 a Marisela Diaz smoking history, tot al pack/day 1/2 Marisela Diaz cigarette use yes Marisela ansari smoking status Current every day smoker K sami Diaz smoking/tobacco cess ation, patient education and counseling yes Min Elizalde MD social history reviewed E&M reviewed Ryan Guerin RN smoking history, tot al pack/year 41 Ryan Guerin RN smoking status current every day smoker H maricel Elizalde MD smoking/tobacco cess ation, patient education and counseling yes Ryan Guerin RN social history reviewed E&M reviewed Ryan Guerin RN smoking history, tot al pack/year 41 Ryan Guerin RN drug use no Ryan Guerin RN passive cigarette sm susanne exposure no Ryan Guerin RN smoking history, tot al pack/day 1/2 Ryan Guerin RN smoking history, tot al pack/year 41 Ryan Guerin RN cigarette use yes Ryan Guerin RN smoking, date started 1971 Henry ortiz RN social history reviewed E&M reviewed Ryan Guerin RN smoking status smoker - current status unknown Candido Diaz MD smoking/tobacco cess ation, patient education and counseling yes Ryan Guerin RN social history reviewed E&M reviewed Ryan Guerin RN drug use none Carlitos Trinidad social history reviewed E&M reviewed Ryan Guerin RN smoking/tobacco cess ation, patient education and counseling yes Min Elizalde MD social history reviewed E&M reviewed Ryan Guerin RN smoking status Smoker Min Elizalde MD smoking/tobacco cess ation, patient education and counseling yes Ryan Guerin RN social history reviewed E&M reviewed Ryan Guerin RN social history reviewed E&M reviewed Ryan Guerin RN social history E&M Marital Statu s: L axel with family/friends E thnicity: Ryan Guerin RN social history reviewed E&M reviewed Ryan Guerin RN physical exercise, frequency, days per week no [facility] caffeine use, averag e drinks per day yes [facility] alcohol use, average drinks per day social basis only [facility] number of years as a smoker 10 years or m ore [facility] smoking status Quit [facility] MENTAL STATUS Date Observation Value Provider assessment of judgme nt and insight E&M Alert and oriented to time, place and person. Mood and affect are normal. Ryan Guerin RN assessment of judgme nt and insight E&M Alert and oriented to time, place and person. Mood and affect are normal. Ryan Guerin RN assessment of judgme nt and insight E&M Alert and oriented to time, place and person. Mood and affect are normal. Ryan Guerin RN assessment of judgme nt and insight E&M Alert and oriented to time, place and person. Mood and affect are normal. Ryan Guerin RN assessment of judgme nt and insight E&M Alert and oriented to time, place and person. Mood and affect are normal. Ryan Guerin RN assessment of judgme nt and insight E&M Alert and oriented to time, place and person. Mood and affect are normal. yRan Guerin RN assessment of judgme nt and insight E&M Alert and oriented to time, place and person. Mood and affect are normal. Ryan Guerin RN assessment of judgme nt and insight E&M Alert and oriented to time, place and person. Mood and affect are normal. Ryan Guerin RN assessment of judgme nt and insight E&M Alert and oriented to time, place and person. Mood and affect are normal. Ryan Guerin RN FAMILY HISTORY Family Member Condition Mother Family History of Co ngestive Heart Failure: Mother Family History of Hy pertension: Mother Family History of Hy perlipidemia: Mother Family History of Di abetes: Mother Family History of CV A or Stroke: Mother Family History Coron devang Heart Disease female < 65: Father Negative FH of Coron devang Artery Disease INSURANCE PROVIDERS Payer name Policy type / Coverage type [facility] [id number] Other [id number] TREATMENT PLAN Date Name Performer Min Elizalde MD : H er updated medication list for this problem includes: Levothroid 50 Mcg Tabs (Levothyroxine sodium) ..... One tab. daily Min Elizalde MD : T he following medications were removed from the medication list: Effient 10 Mg Tabs (Prasugrel hcl) ..... One tablet daily Her updated medication list for this problem includes: Zestril 2.5 Mg Tabs (Lisinopril) ..... One tab. daily Aspirin 81 Mg Tabs (Aspirin) ..... One tab. daily Isosorbide Mononitrate Er 30 Mg [id number] (Isosorbide mononitrate) ..... 1 tab po daily. Orders: B TYPE NATRIURETIC PEPTIDE (BNP) (49108) F ull PFT (*) Min Elizalde MD : O rders: P ROTHROMBIN TIME WITH INR (8847) P ARTIAL THROMBOPLASTIN TIME, ACTIVATED (763) T HYROID PANEL WITH TSH, 3RD GENERATION (7444) B TYPE NATRIURETIC PEPTIDE (BNP) (68473) F ull PFT (*) Min Elizalde MD Min Elizalde MD Min Elizalde MD : H er updated medication list for this problem includes: Lipitor 20 Mg Tabs (Atorvastatin calcium) ..... One tab. daily Niaspan 1000 Mg Tbcr (Niacin (antihyperlipidemic)) ..... One tab. at bedtime BP today: / Prior BP: 126/75 (11/25/2012) C HOL: 162 (11/25/2012) LDL: 80 (11/25/2012) HDL: 52 (11/25/2012) T (11/25/2012) Min Elizalde MD Min Elizalde MD Min Elizalde MD : T he following medications were removed from the medication list: Effient 10 Mg Tabs (Prasugrel hcl) ..... One tablet daily Her updated medication list for this problem includes: Zestril 2.5 Mg Tabs (Lisinopril) ..... One tab. daily Lipitor 20 Mg Tabs (Atorvastatin calcium) ..... One tab. daily Aspirin 81 Mg Tabs (Aspirin) ..... One tab. daily Niaspan 1000 Mg Tbcr (Niacin (antihyperlipidemic)) ..... One tab. at bedtime Isosorbide Mononitrate Er 30 Mg [id number] (Isosorbide mononitrate) ..... 1 tab po daily. Orders: C OMPREHENSIVE METABOLIC PANEL W/EGFR (04102) L IPID PANEL (7600) V ITAMIN B12 (927) H EMOGLOBIN A1c (496) V ITAMIN D, 25-HYDROXY, LC/MS/MS (87765) Min Elizalde MD : T he following medications were removed from the medication list: Effient 10 Mg Tabs (Prasugrel hcl) ..... One tablet daily Her updated medication list for this problem includes: Zestril 2.5 Mg Tabs (Lisinopril) ..... One tab. daily Lipitor 20 Mg Tabs (Atorvastatin calcium) ..... One tab. daily Aspirin 81 Mg Tabs (Aspirin) ..... One tab. daily Niaspan 1000 Mg Tbcr (Niacin (antihyperlipidemic)) ..... One tab. at bedtime Isosorbide Mononitrate Er 30 Mg [id number] (Isosorbide mononitrate) ..... 1 tab po daily. Orders: E KG (CPT-19810) C OMPREHENSIVE METABOLIC PANEL W/EGFR (61031) L IPID PANEL (7600) V ITAMIN B12 (927) H EMOGLOBIN A1c (496) V ITAMIN D, 25-HYDROXY, LC/MS/MS (74197) Min Elizalde MD : O rders: C OMPREHENSIVE METABOLIC PANEL W/EGFR (21251) L IPID PANEL (7600) V ITAMIN B12 (927) H EMOGLOBIN A1c (496) V ITAMIN D, 25-HYDROXY, LC/MS/MS (14101) L IPASE (55161) P ROTHROMBIN TIME WITH INR (8847) P ARTIAL THROMBOPLASTIN TIME, ACTIVATED (763) T HYROID PANEL WITH TSH, 3RD GENERATION (7444) B TYPE NATRIURETIC PEPTIDE (BNP) (20622) F ull PFT (*) Min Elizalde MD : O rders: C OMPREHENSIVE METABOLIC PANEL W/EGFR (50547) L IPID PANEL (7600) V ITAMIN B12 (927) H EMOGLOBIN A1c (496) V ITAMIN D, 25-HYDROXY, LC/MS/MS (80994) L IPASE (83614) P ROTHROMBIN TIME WITH INR (8847) P ARTIAL THROMBOPLASTIN TIME, ACTIVATED (763) T HYROID PANEL WITH TSH, 3RD GENERATION (7444) B TYPE NATRIURETIC PEPTIDE (BNP) (87390) F ull PFT (*) Min Elizalde MD : T he following medications were removed from the medication list: Effient 10 Mg Tabs (Prasugrel hcl) ..... One tablet daily Her updated medication list for this problem includes: Triamterene-hctz 37.5-25 Mg Tabs (Triamterene-hctz) ..... One tab. daily Zestril 2.5 Mg Tabs (Lisinopril) ..... One tab. daily Aspirin 81 Mg Tabs (Aspirin) ..... One tab. daily Isosorbide Mononitrate Er 30 Mg [id number] (Isosorbide mononitrate) ..... 1 tab po daily. Orders: C OMPREHENSIVE METABOLIC PANEL W/EGFR (64734) L IPID PANEL (7600) V ITAMIN B12 (927) H EMOGLOBIN A1c (496) V ITAMIN D, 25-HYDROXY, LC/MS/MS (75840) L IPASE (00259) P ROTHROMBIN TIME WITH INR (8847) P ARTIAL THROMBOPLASTIN TIME, ACTIVATED (763) T HYROID PANEL WITH TSH, 3RD GENERATION (7444) B TYPE NATRIURETIC PEPTIDE (BNP) (62144) F ull PFT (*) Min Elizalde MD : O rders: C OMPREHENSIVE METABOLIC PANEL W/EGFR (83100) L IPID PANEL (7600) V ITAMIN B12 (927) H EMOGLOBIN A1c (496) V ITAMIN D, 25-HYDROXY, LC/MS/MS (07675) L IPASE (10773) P ROTHROMBIN TIME WITH INR (8847) P ARTIAL THROMBOPLASTIN TIME, ACTIVATED (763) T HYROID PANEL WITH TSH, 3RD GENERATION (7444) B TYPE NATRIURETIC PEPTIDE (BNP) (27330) F ull PFT (*) Min Elizalde MD routine Min Elizalde MD routine: H er updated medication list for this problem includes: Triamterene-hctz 37.5-25 Mg Tabs (Triamterene-hctz) ..... One tab. daily Zestril 2.5 Mg Tabs (Lisinopril) ..... One tab. daily Aspirin 81 Mg Tabs (Aspirin) ..... One tab. daily Prior BP: 130/72 (09/24/2012) Labs Reviewed: C reat: 0.70 (08/25/2012) C hol: 148 (11/27/2011) LDL: 64 (11/27/2011) Min Elizalde MD routine Min Elizalde MD routine Min Elizalde MD routine: O rders: C omplete Echo (CPT-76006) E CP Commercial (CPT-37873) e Prescribe - Check this box if eRx is used (CPT-G8553) A rterial Duplex Bi-Lower EX (CPT-68026) Min Elizalde MD routine: H er updated medication list for this problem includes: Levothroid 50 Mcg Tabs (Levothyroxine sodium) ..... One tab. daily Labs Reviewed: T SH: 1.020 (11/27/2011) C hol: 148 (11/27/2011) LDL: 64 (11/27/2011) Orders: C omplete Echo (CPT-28435) E CP Commercial (CPT-48965) e Prescribe - Check this box if eRx is used (CPT-G8553) A rterial Duplex Bi-Lower EX (CPT-31410) Min Elizalde MD routine: H er updated medication list for this problem includes: Zestril 2.5 Mg Tabs (Lisinopril) ..... One tab. daily Lipitor 20 Mg Tabs (Atorvastatin calcium) ..... One tab. daily Aspirin 81 Mg Tabs (Aspirin) ..... One tab. daily Niaspan 1000 Mg Tbcr (Niacin (antihyperlipidemic)) ..... One tab. at bedtime Effient 10 Mg Tabs (Prasugrel hcl) ..... One tablet daily Isosorbide Mononitrate Er 30 Mg [id number] (Isosorbide mononitrate) ..... 1 tab po daily. BP today: / Prior BP: 130/72 (09/24/2012) N uclear Stress Findings: 1. Abnormal Cesar protocol exercise tolerance test showing ST segment depression with exercise. 2 . Normal left ventricular size and function with a calculated ejection fraction of 59%. 3 . Myocardial scintigraphy is normal without evidence for previous myocardial infarction or reversible ischemia. 4 . On the basis of normal perfusion imaging, the ST segment response with exercise is considered falsely positive for ischemia. - [facility] (03/10/2012) C ardiac Cath: 90% to 95% in-stent stenosis in the first OM. EF 60%. Normal left ventricular systolic function. - [facility] (02/25/2012) C ardiac Cath Comments: Successful stenting of the obtuse marginal branch with a 2.5 x 15 mm Xience stent. - [facility] (02/24/2012) C arotid Doppler/Duplex: Mild plaque with less than 50% stenosis of the internal carotid arteries bilaterally. Vertebral flow is antegrade bilaterally. - GC (01/28/2012) C HOL: 148 (11/27/2011) LDL: 64 (11/27/2011) Hgb: 13.4 (05/31/2008) HCT: 36.6 (08/25/2012) Platelets: 320 (08/25/2012) R BC: 4.46 (05/31/2008) WBC: 5.7 (05/31/2008) B UN: 5 (05/31/2008) Creat: 0.70 (08/25/2012) Glucose: 118 (05/31/2008) N a+: 144 (08/25/2012) K+: 4.8 (08/25/2012) PT: 10.7 (05/31/2008) INR: 1.0 (08/25/2012) T SH: 1.020 (11/27/2011) O rders: C omplete Echo (CPT-55701) E CP Commercial (CPT-49174) e Prescribe - Check this box if eRx is used (CPT-G8553) A rterial Duplex Bi-Lower EX (CPT-55933) Min Elizalde MD routine: O rders: C omplete Echo (CPT-54591) E CP Commercial (CPT-45913) e Prescribe - Check this box if eRx is used (CPT-G8553) A rterial Duplex Bi-Lower EX (CPT-80815) Min lEizalde MD routine: O rders: C omplete Echo (CPT-86721) E CP Commercial (CPT-89689) e Prescribe - Check this box if eRx is used (CPT-G8553) A rterial Duplex Bi-Lower EX (CPT-28745) Min Elizalde MD routine: H er updated medication list for this problem includes: Zestril 2.5 Mg Tabs (Lisinopril) ..... One tab. daily Lipitor 20 Mg Tabs (Atorvastatin calcium) ..... One tab. daily Aspirin 81 Mg Tabs (Aspirin) ..... One tab. daily Niaspan 1000 Mg Tbcr (Niacin (antihyperlipidemic)) ..... One tab. at bedtime Effient 10 Mg Tabs (Prasugrel hcl) ..... One tablet daily Isosorbide Mononitrate Er 30 Mg [id number] (Isosorbide mononitrate) ..... 1 tab po daily. BP today: / Prior BP: 130/72 (09/24/2012) N uclear Stress Findings: 1. Abnormal Cesar protocol exercise tolerance test showing ST segment depression with exercise. 2 . Normal left ventricular size and function with a calculated ejection fraction of 59%. 3 . Myocardial scintigraphy is normal without evidence for previous myocardial infarction or reversible ischemia. 4 . On the basis of normal perfusion imaging, the ST segment response with exercise is considered falsely positive for ischemia. - (03/10/2012) C ardiac Cath: 90% to 95% in-stent stenosis in the first OM. EF 60%. Normal left ventricular systolic function. - [facility] (02/25/2012) C ardiac Cath Comments: Successful stenting of the obtuse marginal branch with a 2.5 x 15 mm Xience stent. - [facility] (02/24/2012) C arotid Doppler/Duplex: Mild plaque with less than 50% stenosis of the internal carotid arteries bilaterally. Vertebral flow is antegrade bilaterally. - (01/28/2012) C HOL: 148 (11/27/2011) LDL: 64 (11/27/2011) Hgb: 13.4 (05/31/2008) HCT: 36.6 (08/25/2012) Platelets: 320 (08/25/2012) R BC: 4.46 (05/31/2008) WBC: 5.7 (05/31/2008) B UN: 5 (05/31/2008) Creat: 0.70 (08/25/2012) Glucose: 118 (05/31/2008) N a+: 144 (08/25/2012) K+: 4.8 (08/25/2012) PT: 10.7 (05/31/2008) INR: 1.0 (08/25/2012) T SH: 1.020 (11/27/2011) O rders: C omplete Echo (CPT-13264) E CP Commercial (CPT-51063) e Prescribe - Check this box if eRx is used (CPT-G8553) A rterial Duplex Bi-Lower EX (CPT-92860) Min Elizalde MD routine: O rders: C omplete Echo (CPT-77537) E CP Commercial (CPT-35641) e Prescribe - Check this box if eRx is used (CPT-G8553) A rterial Duplex Bi-Lower EX (CPT-89931) Min Elizalde MD routine: O rders: C omplete Echo (CPT-07532) E CP Commercial (CPT-88721) e Prescribe - Check this box if eRx is used (CPT-G8553) A rterial Duplex Bi-Lower EX (CPT-91578) Min Elizalde MD hosp f/u: H er updated medication list for this problem includes: Lipitor 20 Mg Tabs (Atorvastatin calcium) ..... One tab. daily Niaspan 1000 Mg Tbcr (Niacin (antihyperlipidemic)) ..... One tab. at bedtime BP today: / Prior BP: 142/74 (03/25/2012) C HOL: 148 (11/27/2011) LDL: 64 (11/27/2011) Candido Diaz MD hosp f/u:stable. H er updated medication list for this problem includes: Zestril 2.5 Mg Tabs (Lisinopril) ..... One tab. daily Lipitor 20 Mg Tabs (Atorvastatin calcium) ..... One tab. daily Aspirin 81 Mg Tabs (Aspirin) ..... One tab. daily Niaspan 1000 Mg Tbcr (Niacin (antihyperlipidemic)) ..... One tab. at bedtime Effient 10 Mg Tabs (Prasugrel hcl) ..... One tablet daily Isosorbide Mononitrate Er 30 Mg [id number] (Isosorbide mononitrate) ..... 1 tab po daily. BP today: / Prior BP: 142/74 (03/25/2012) N uclear Stress Findings: 1. Abnormal Cesar protocol exercise tolerance test showing ST segment depression with exercise. 2 . Normal left ventricular size and function with a calculated ejection fraction of 59%. 3 . Myocardial scintigraphy is normal without evidence for previous myocardial infarction or reversible ischemia. 4 . On the basis of normal perfusion imaging, the ST segment response with exercise is considered falsely positive for ischemia. - (03/10/2012) C ardiac Cath: 90% to 95% in-stent stenosis in the first OM. EF 60%. Normal left ventricular systolic function. - [facility] (02/25/2012) C ardiac Cath Comments: Successful stenting of the obtuse marginal branch with a 2.5 x 15 mm Xience stent. - [facility] (02/24/2012) C arotid Doppler/Duplex: Mild plaque with less than 50% stenosis of the internal carotid arteries bilaterally. Vertebral flow is antegrade bilaterally. - (01/28/2012) C HOL: 148 (11/27/2011) LDL: 64 (11/27/2011) Hgb: 13.4 (05/31/2008) HCT: 36.6 (08/25/2012) Platelets: 320 (08/25/2012) R BC: 4.46 (05/31/2008) WBC: 5.7 (05/31/2008) B UN: 5 (05/31/2008) Creat: 0.70 (08/25/2012) Glucose: 118 (05/31/2008) N a+: 144 (08/25/2012) K+: 4.8 (08/25/2012) PT: 10.7 (05/31/2008) INR: 1.0 (08/25/2012) T SH: 1.020 (11/27/2011) Candido Diaz MD hosp f/u Candido Diaz MD hosp f/u:she is feel ing better but still has chest discomfort a mariza Diaz MD test results Min Elizalde MD test results [place] test results [place] test results [place] test results [place] test results [place] test results [place] test results [place] test results [place] test results [place] test results [place] test results [place] test results [place] test [place] chest pain: B P today: 140/88 Prior BP: 131/76 (02/19/2012) C HOL: 148 (11/27/2011) LDL: 64 (11/27/2011) Carlitos Perry MD chest pain: B P today: 140/88 Prior BP: 131/76 (02/19/2012) C HOL: 148 (11/27/2011) LDL: 64 (11/27/2011) Carlitos Perry MD chest pain: B P today: 140/88 P rior BP: 131/76 (02/19/2012) Labs Reviewed: C reat: 0.6 (02/17/2012) C hol: 148 (11/27/2011) LDL: 64 (11/27/2011) Carlitos Perry MD chest pain: L abs Reviewed: T SH: 1.020 (11/27/2011) C hol: 148 (11/27/2011) LDL: 64 (11/27/2011) Carlitos Perry MD chest pain: B P today: 140/88 Prior BP: 131/76 (02/19/2012) N uclear Stress Findings: Had 0.6mm upsloping ST segment depression in the inferior leads on baseline ECG which increased to 1.1-1.2cm upsloping. Had 0.4mm upsloping ST segment depression in the lateral leads which remained unchanged with exercise. Test is considered to be negative by ECG criteria. Unremarkable submaximal SPECT stress technetium Myoview eamination. LVEF 78% which is within normal limits. - [facility] (12/10/2011) C ardiac Cath: coronary artery disease with 80% of the obtuse marginal branch, 40% of the distal RCA, EF of 60%. - [facility] (12/10/2011) C ardiac Cath Comments: Successful stenting of the obtuse marginal branch with a 2.5 x 12mm vision stent. - [facility] (12/10/2011) C arotid Doppler/Duplex: Mild plaque with less than 50% stenosis of the internal carotid arteries bilaterally. Vertebral flow is antegrade bilaterally. - GC (01/28/2012) C HOL: 148 (11/27/2011) LDL: 64 (11/27/2011) Hgb: 13.4 (05/31/2008) HCT: 39.1 (02/17/2012) Platelets: 300 (02/17/2012) R BC: 4.46 (05/31/2008) WBC: 5.7 (05/31/2008) B UN: 5 (05/31/2008) Creat: 0.6 (02/17/2012) Glucose: 118 (05/31/2008) N a+: 133 (02/17/2012) K+: 3.5 (02/17/2012) PT: 10.7 (05/31/2008) INR: 0.9 (02/17/2012) T SH: 1.020 (11/27/2011) Carlitos Perry MD chest pain: B P today: 140/88 Prior BP: 131/76 (02/19/2012) H gb: 13.4 (05/31/2008) HCT: 39.1 (02/17/2012) Platelets: 300 (02/17/2012) R BC: 4.46 (05/31/2008) WBC: 5.7 (05/31/2008) B UN: 5 (05/31/2008) Creat: 0.6 (02/17/2012) Glucose: 118 (05/31/2008) N a+: 133 (02/17/2012) K+: 3.5 (02/17/2012) CHOL: 148 (11/27/2011) LDL: 64 (11/27/2011) TSH: 1.020 (11/27/2011) Echocardiogram: Normal left ventricular systolic function. Normal left ventricular size. Normal left ventricular wall thickness. There is impaired LV relaxation. Left ventricular ejection fraction is estimated at 65%. The mitral valve is normal in appearance and function. No mitral valve regurgitation is seen. Mildly thickened aortic valve leaflets. Velocities, as well as gradients across the aortic valve are normal. No evidence of aortic insufficiency. Left atrium is upper limits of normal in size. The intra-atrial septum thickness is normal. The tricuspid valve is normal in appearance and function. No evidence of tricuspid regurgitation. IVC is normal in size with normal respiratory response. Unable to adequately assess the RVSP. Normal pericardium with no pericardial or pleural effusion. Normal aortic root size. - (01/28/2012) N uclear Stress Findings: Had 0.6mm upsloping ST segment depression in the inferior leads on baseline ECG which increased to 1.1-1.2cm upsloping. Had 0.4mm upsloping ST segment depression in the lateral leads which remained unchanged with exercise. Test is considered to be negative by ECG criteria. Unremarkable submaximal SPECT stress technetium Myoview eamination. LVEF 78% which is within normal limits. - [facility] (12/10/2011) C ardiac Cath: coronary artery disease with 80% of the obtuse marginal branch, 40% of the distal RCA, EF of 60%. - [facility] (12/10/2011) Cardiac Cath Comments: Successful stenting of the obtuse marginal branch with a 2.5 x 12mm vision stent. - [facility] (12/10/2011) Carlitos Perry MD chest pain: B P today: 140/88 Prior BP: 131/76 (02/19/2012) N uclear Stress Findings: Had 0.6mm upsloping ST segment depression in the inferior leads on baseline ECG which increased to 1.1-1.2cm upsloping. Had 0.4mm upsloping ST segment depression in the lateral leads which remained unchanged with exercise. Test is considered to be negative by ECG criteria. Unremarkable submaximal SPECT stress technetium Myoview eamination. LVEF 78% which is within normal limits. - [facility] (12/10/2011) C ardiac Cath: coronary artery disease with 80% of the obtuse marginal branch, 40% of the distal RCA, EF of 60%. - [facility] (12/10/2011) C ardiac Cath Comments: Successful stenting of the obtuse marginal branch with a 2.5 x 12mm vision stent. - [facility] (12/10/2011) C arotid Doppler/Duplex: Mild plaque with less than 50% stenosis of the internal carotid arteries bilaterally. Vertebral flow is antegrade bilaterally. - GC (01/28/2012) C HOL: 148 (11/27/2011) LDL: 64 (11/27/2011) Hgb: 13.4 (05/31/2008) HCT: 39.1 (02/17/2012) Platelets: 300 (02/17/2012) R BC: 4.46 (05/31/2008) WBC: 5.7 (05/31/2008) B UN: 5 (05/31/2008) Creat: 0.6 (02/17/2012) Glucose: 118 (05/31/2008) N a+: 133 (02/17/2012) K+: 3.5 (02/17/2012) PT: 10.7 (05/31/2008) INR: 0.9 (02/17/2012) T SH: 1.020 (11/27/2011) Carlitos Perry MD chest pain with activity Min Elizalde MD chest pain with activity Min Elizalde MD chest pain with acti vity : H er updated medication list for this problem includes: Lipitor 20 Mg Tabs (Atorvastatin calcium) ..... One tab. daily Niaspan 1000 Mg Tbcr (Niacin (antihyperlipidemic)) ..... One tab. at bedtime BP today: / Prior BP: 135/80 (01/08/2012) Mni Elizalde MD chest pain with acti vity : H er updated medication list for this problem includes: Lipitor 20 Mg Tabs (Atorvastatin calcium) ..... One tab. daily Niaspan 1000 Mg Tbcr (Niacin (antihyperlipidemic)) ..... One tab. at bedtime BP today: / Prior BP: 135/80 (01/08/2012) Min Elizalde MD chest pain with acti vity : H er updated medication list for this problem includes: Triamterene-hctz 37.5-25 Mg Tabs (Triamterene-hctz) ..... One tab. daily Zestril 2.5 Mg Tabs (Lisinopril) ..... One tab. daily Aspirin 81 Mg Tabs (Aspirin) ..... One tab. daily Prior BP: 135/80 (01/08/2012) Labs Reviewed: C reat: 0.72 (05/31/2008) Min Elizalde MD chest pain with acti vity : O rders: C omplete Echo (CPT-72536) C ardiac Cath - Left - GC (*) V enous Doppler Bilateral LE - Standing (CPT-67220) Min Elizalde MD chest pain with acti vity : H er updated medication list for this problem includes: Levothroid 50 Mcg Tabs (Levothyroxine sodium) ..... One tab. daily Orders: C omplete Echo (CPT-77129) C ardiac Cath - Left - GC (*) Min Elizalde MD chest pain with acti vity : O rders: C omplete Echo (CPT-92735) C ardiac Cath - Left - GC (*) V enous Doppler Bilateral LE - Standing (CPT-79572) Min Elizalde MD chest pain with acti vity : O rders: C omplete Echo (CPT-96967) C ardiac Cath - Left - GC (*) V enous Doppler Bilateral LE - Standing (CPT-21069) Min Elizalde MD chest pain with acti vity : O rders: C omplete Echo (CPT-41421) C ardiac Cath - Left - GC (*) V enous Doppler Bilateral LE - Standing (CPT-61467) Min Elizalde MD chest pain with activity Min Elizalde MD chest pain with acti vity : H er updated medication list for this problem includes: Zestril 2.5 Mg Tabs (Lisinopril) ..... One tab. daily Lipitor 20 Mg Tabs (Atorvastatin calcium) ..... One tab. daily Aspirin 81 Mg Tabs (Aspirin) ..... One tab. daily Niaspan 1000 Mg Tbcr (Niacin (antihyperlipidemic)) ..... One tab. at bedtime BP today: / Prior BP: 135/80 (01/08/2012) N uclear Stress Findings: Had 0.6mm upsloping ST segment depression in the inferior leads on baseline ECG which increased to 1.1-1.2cm upsloping. Had 0.4mm upsloping ST segment depression in the lateral leads which remained unchanged with exercise. Test is considered to be negative by ECG criteria. Unremarkable submaximal SPECT stress technetium Myoview eamination. LVEF 78% which is within normal limits. - [facility] (12/10/2011) C ardiac Cath: coronary artery disease with 80% of the obtuse marginal branch, 40% of the distal RCA, EF of 60%. - [facility] (12/10/2011) C ardiac Cath Comments: Successful stenting of the obtuse marginal branch with a 2.5 x 12mm vision stent. - [facility] (12/10/2011) C arotid Doppler/Duplex: Mild plaque with less than 50% stenosis of the internal carotid arteries bilaterally. Vertebral flow is antegrade bilaterally. - (01/28/2012) H gb: 13.4 (05/31/2008) HCT: 40.5 (05/31/2008) RBC: 4.46 (05/31/2008) WBC: 5.7 (05/31/2008) B UN: 5 (05/31/2008) Creat: 0.72 (05/31/2008) Glucose: 118 (05/31/2008) N a+: 137 (05/31/2008) K+: 4.1 (05/31/2008) PT: 10.7 (05/31/2008) INR: 1.1 (05/31/2008) Orders: C omplete Echo (CPT-00531) C ardiac Cath - Left - GC (*) V enous Doppler Bilateral LE - Standing (CPT-95938) Min Elizalde MD chest pain with acti vity : H er updated medication list for this problem includes: Zestril 2.5 Mg Tabs (Lisinopril) ..... One tab. daily Lipitor 20 Mg Tabs (Atorvastatin calcium) ..... One tab. daily Aspirin 81 Mg Tabs (Aspirin) ..... One tab. daily Niaspan 1000 Mg Tbcr (Niacin (antihyperlipidemic)) ..... One tab. at bedtime BP today: / Prior BP: 135/80 (01/08/2012) N uclear Stress Findings: Had 0.6mm upsloping ST segment depression in the inferior leads on baseline ECG which increased to 1.1-1.2cm upsloping. Had 0.4mm upsloping ST segment depression in the lateral leads which remained unchanged with exercise. Test is considered to be negative by ECG criteria. Unremarkable submaximal SPECT stress technetium Myoview eamination. LVEF 78% which is within normal limits. - [facility] (12/10/2011) C ardiac Cath: coronary artery disease with 80% of the obtuse marginal branch, 40% of the distal RCA, EF of 60%. - [facility] (12/10/2011) C ardiac Cath Comments: Successful stenting of the obtuse marginal branch with a 2.5 x 12mm vision stent. - [facility] (12/10/2011) C arotid Doppler/Duplex: Mild plaque with less than 50% stenosis of the internal carotid arteries bilaterally. Vertebral flow is antegrade bilaterally. - GC (01/28/2012) H gb: 13.4 (05/31/2008) HCT: 40.5 (05/31/2008) RBC: 4.46 (05/31/2008) WBC: 5.7 (05/31/2008) B UN: 5 (05/31/2008) Creat: 0.72 (05/31/2008) Glucose: 118 (05/31/2008) N a+: 137 (05/31/2008) K+: 4.1 (05/31/2008) PT: 10.7 (05/31/2008) INR: 1.1 (05/31/2008) Orders: E KG (CPT-20544) C omplete Echo (CPT-43743) C ardiac Cath - Left - GC (*) V enous Doppler Bilateral LE - Standing (CPT-58866) Min Elizalde MD hosp f/u Min Elizalde MD hosp f/u : O rders: C arotid Duplex Bilateral (CPT-50270) C omplete Echo (CPT-83412) Min Elizalde MD hosp f/u : O rders: C arotid Duplex Bilateral (CPT-07740) Min Elizalde MD hosp f/u : H er updated medication list for this problem includes: Lipitor 10 Mg Tabs (Atorvastatin calcium) ..... Take one tablet by mouth every other day Niaspan 1000 Mg Tbcr (Niacin (antihyperlipidemic)) ..... One tab. at bedtime BP today: / Prior BP: 142/83 (07/06/2008) Min Elizalde MD hosp f/u : H er updated medication list for this problem includes: Triamterene-hctz 37.5-25 Mg Tabs (Triamterene-hctz) ..... One tab. daily Zestril 2.5 Mg Tabs (Lisinopril) ..... One tab. daily Aspirin 81 Mg Tabs (Aspirin) ..... One tab. daily Prior BP: 142/83 (07/06/2008) Labs Reviewed: C reat: 0.72 (05/31/2008) Min Elizalde MD hosp f/u : O rders: C arotid Duplex Bilateral (CPT-53090) Min Elizalde MD hosp f/u : H er updated medication list for this problem includes: Levothroid 50 Mcg Tabs (Levothyroxine sodium) ..... One tab. daily Orders: C arotid Duplex Bilateral (CPT-32929) Min Elizalde MD hosp f/u : O rders: C arotid Duplex Bilateral (CPT-03116) Min Elizalde MD hosp f/u : H er updated medication list for this problem includes: Zestril 2.5 Mg Tabs (Lisinopril) ..... One tab. daily Lipitor 10 Mg Tabs (Atorvastatin calcium) ..... Take one tablet by mouth every other day Aspirin 81 Mg Tabs (Aspirin) ..... One tab. daily Niaspan 1000 Mg Tbcr (Niacin (antihyperlipidemic)) ..... One tab. at bedtime BP today: / Prior BP: 142/83 (07/06/2008) C ardiac Cath: coronary artery disease with 80% of the obtuse marginal branch, 40% of the distal RCA, EF of 60%. - [facility] (12/10/2011) C ardiac Cath Comments: Successful stenting of the obtuse marginal branch with a 2.5 x 12mm vision stent. - [facility] (12/10/2011) H gb: 13.4 (05/31/2008) HCT: 40.5 (05/31/2008) RBC: 4.46 (05/31/2008) WBC: 5.7 (05/31/2008) B UN: 5 (05/31/2008) Creat: 0.72 (05/31/2008) Glucose: 118 (05/31/2008) N a+: 137 (05/31/2008) K+: 4.1 (05/31/2008) PT: 10.7 (05/31/2008) INR: 1.1 (05/31/2008) Min Elizalde MD hosp f/u : O rders: C arotid Duplex Bilateral (CPT-73419) C omplete Echo (CPT-98242) Min Elizalde MD hosp f/u : H er updated medication list for this problem includes: Zestril 2.5 Mg Tabs (Lisinopril) ..... One tab. daily Aspirin 81 Mg Tabs (Aspirin) ..... One tab. daily BP today: / Prior BP: 142/83 (07/06/2008) C ardiac Cath: coronary artery disease with 80% of the obtuse marginal branch, 40% of the distal RCA, EF of 60%. - [facility] (12/10/2011) C ardiac Cath Comments: Successful stenting of the obtuse marginal branch with a 2.5 x 12mm vision stent. - [facility] (12/10/2011) H gb: 13.4 (05/31/2008) HCT: 40.5 (05/31/2008) RBC: 4.46 (05/31/2008) WBC: 5.7 (05/31/2008) B UN: 5 (05/31/2008) Creat: 0.72 (05/31/2008) Glucose: 118 (05/31/2008) N a+: 137 (05/31/2008) K+: 4.1 (05/31/2008) PT: 10.7 (05/31/2008) INR: 1.1 (05/31/2008) E chocardiogram: The left ventricular chamber size is normal. Normal left ventricular wall thickness.Normal left v entricular function. LV EF is estimated at 60% There is E: A reversal of mitral inflow velocities consistent with d iastolic dysfunction. T he Mitral Valve is structurally normal and appears to open and close adequately.The aortic valve appears s tructurally normal. The tricuspid valve is structurally normal. Uable to adequately assess the right ventricular s ystolic pressure (RSVP) . No evidence of mitral valve regurgitation. N o evidence of aortic valve regurgitation. M inimal tricuspid regurgitation. N o evidence of pulmonic valve regurgitation. (05/31/2008) Min Elizalde MD hosp f/u : H er updated medication list for this problem includes: Lipitor 10 Mg Tabs (Atorvastatin calcium) ..... Take one tablet by mouth every other day Niaspan 1000 Mg Tbcr (Niacin (antihyperlipidemic)) ..... One tab. at bedtime BP today: / Prior BP: 142/83 (07/06/2008) Min Elizalde MD post cath: H er updated medication list for this problem includes: Lipitor 10 Mg Tabs (Atorvastatin calcium) ..... Take one tablet by mouth every other day Niaspan 1000 Mg Tbcr (Niacin (antihyperlipidemic)) ..... One tab. at bedtime BP today: 142/83 Prior BP: 140/87 (05/25/2008) Min Elizalde MD post cath: H er updated medication list for this problem includes: Lipitor 10 Mg Tabs (Atorvastatin calcium) ..... Take one tablet by mouth every other day Niaspan 1000 Mg Tbcr (Niacin (antihyperlipidemic)) ..... One tab. at bedtime BP today: 142/83 Prior BP: 140/87 (05/25/2008) Min Elizalde MD post cath Min Elizalde MD post cath Min Elizalde MD post cath Min Elizalde MD post cath Min Elizalde MD post cath: H er updated medication list for this problem includes: Zestril 2.5 Mg Tabs (Lisinopril) ..... One tab. daily Aspirin 81 Mg Tabs (Aspirin) ..... One tab. daily BP today: 142/83 Prior BP: 140/87 (05/25/2008) C ardiac Cath: Systemic hypertension with normal renal arteries. Normal LV systolic function with EF of 70%. Right heart catheterization. Difffuse coronary plaquing ranging in between 20% to 30%. (06/01/2008) C ardiac Cath Comments: Treatment for microvascular angina is recommended. Aggressive risk factor modification is recommended. (06/01/2008) H gb: 13.4 (05/31/2008) HCT: 40.5 (05/31/2008) RBC: 4.46 (05/31/2008) WBC: 5.7 (05/31/2008) B UN: 5 (05/31/2008) Creat: 0.72 (05/31/2008) Glucose: 118 (05/31/2008) N a+: 137 (05/31/2008) K+: 4.1 (05/31/2008) PT: 10.7 (05/31/2008) INR: 1.1 (05/31/2008) E chocardiogram: The left ventricular chamber size is normal. Normal left ventricular wall thickness.Normal left v entricular function. LV EF is estimated at 60% There is E: A reversal of mitral inflow velocities consistent with d iastolic dysfunction. T he Mitral Valve is structurally normal and appears to open and close adequately.The aortic valve appears s tructurally normal. The tricuspid valve is structurally normal. Uable to adequately assess the right ventricular s ystolic pressure (RSVP) . No evidence of mitral valve regurgitation. N o evidence of aortic valve regurgitation. M inimal tricuspid regurgitation. N o evidence of pulmonic valve regurgitation. (05/31/2008) Min Elizalde MD post cath: B P today: 142/83 Prior BP: 140/87 (05/25/2008) H gb: 13.4 (05/31/2008) HCT: 40.5 (05/31/2008) RBC: 4.46 (05/31/2008) WBC: 5.7 (05/31/2008) B UN: 5 (05/31/2008) Creat: 0.72 (05/31/2008) Glucose: 118 (05/31/2008) N a+: 137 (05/31/2008) K+: 4.1 (05/31/2008) Echocardiogram: The left ventricular chamber size is normal. Normal left ventricular wall thickness.Normal left v entricular function. LV EF is estimated at 60% There is E: A reversal of mitral inflow velocities consistent with d iastolic dysfunction. T he Mitral Valve is structurally normal and appears to open and close adequately.The aortic valve appears s tructurally normal. The tricuspid valve is structurally normal. Uable to adequately assess the right ventricular s ystolic pressure (RSVP) . No evidence of mitral valve regurgitation. N o evidence of aortic valve regurgitation. M inimal tricuspid regurgitation. N o evidence of pulmonic valve regurgitation. (05/31/2008) C ardiac Cath: Systemic hypertension with normal renal arteries. Normal LV systolic function with EF of 70%. Right heart catheterization. Difffuse coronary plaquing ranging in between 20% to 30%. (06/01/2008) Cardiac Cath Comments: Treatment for microvascular angina is recommended. Aggressive risk factor modification is recommended. (06/01/2008) Min Elizalde MD post cath: H er updated medication list for this problem includes: Levothroid 50 Mcg Tabs (Levothyroxine sodium) ..... One tab. daily Min Elizalde MD post cath: H er updated medication list for this problem includes: Zestril 2.5 Mg Tabs (Lisinopril) ..... One tab. daily Lipitor 10 Mg Tabs (Atorvastatin calcium) ..... Take one tablet by mouth every other day Aspirin 81 Mg Tabs (Aspirin) ..... One tab. daily Niaspan 1000 Mg Tbcr (Niacin (antihyperlipidemic)) ..... One tab. at bedtime BP today: 142/83 Prior BP: 140/87 (05/25/2008) C ardiac Cath: Systemic hypertension with normal renal arteries. Normal LV systolic function with EF of 70%. Right heart catheterization. Difffuse coronary plaquing ranging in between 20% to 30%. (06/01/2008) C ardiac Cath Comments: Treatment for microvascular angina is recommended. Aggressive risk factor modification is recommended. (06/01/2008) H gb: 13.4 (05/31/2008) HCT: 40.5 (05/31/2008) RBC: 4.46 (05/31/2008) WBC: 5.7 (05/31/2008) B UN: 5 (05/31/2008) Creat: 0.72 (05/31/2008) Glucose: 118 (05/31/2008) N a+: 137 (05/31/2008) K+: 4.1 (05/31/2008) PT: 10.7 (05/31/2008) INR: 1.1 (05/31/2008) Min Elizalde MD post cath: H er updated medication list for this problem includes: Triamterene-hctz 37.5-25 Mg Tabs (Triamterene-hctz) ..... One tab. daily Zestril 2.5 Mg Tabs (Lisinopril) ..... One tab. daily Aspirin 81 Mg Tabs (Aspirin) ..... One tab. daily BP today: 142/83 P rior BP: 140/87 (05/25/2008) Labs Reviewed: C reat: 0.72 (05/31/2008) Min Elizalde MD office visit Min Elizalde MD office visit: H er updated medication list for this problem includes: Triamterene-hctz 37.5-25 Mg Tabs (Triamterene-hctz) ..... One tab. daily Orders: C ardiac Cath - GC (*) BP today: 140/87 Prior BP: / () Min Elizalde MD office visit: H er updated medication list for this problem includes: Lipitor 10 Mg Tabs (Atorvastatin calcium) ..... Take one tablet by mouth every other day BP today: 140/87 Prior BP: / () Min Elizalde MD office visit: B P today: 140/87 Prior BP: / () Orders: C ardiac Cath - GC (*) Min Elizalde MD Date Name DLCO Order - [id number] FR Order - [id number] FVC Order - [id number] Full PFT PROBNP, N TERMINAL Complete Echo Complete Echo Full PFT Arterial Duplex Bi-L ower EX ECP Commercial Complete Echo Stress Test - Nuclea r Venous Doppler Bilat eral LE - Standing Cardiac Cath - Left - GC Complete Echo Complete Echo Carotid Duplex Bilat eral Complete Echo Cardiac Cath - GC HISTORY OF PROCEDURES Procedure Date Procedure Name Provider Procedure Notes S tatus BLOOD COUNT HEMOGLOBIN Min Elizalde MD completed EKG Min Elizalde MD complete d DLCO - 21295 Min Elizalde MD comple mrasha FRC - 02218 Min Elizalde MD complet ed FVC - 84575 Min Elizalde MD complet ed EKG Min Elizalde MD complete d ePrescribe - Check t his box if eRx is used Min Elizalde MD completed Lipid Strip Min Elizalde MD complet ed EKG Min Elizalde MD complete d ePrescribe - Check t his box if eRx is used Min Elizalde MD completed EKG Carlitos Perry MD complete d ePrescribe - Check t his box if eRx is used Min Elizalde MD completed EKG Min Elizlade MD complete d EKNa Elizalde MD complete d
--- OUTSIDE RECORDS SUMMARY | 2024-11-25 15:38 | XMS_ITS | CONTINUITY OF CARE DOCUMENT ---
Author Name zuri, zuri Address Unknown Organization [facility] Address [address] [place] [address] Phone [phone] Care Team Providers Care Thread Cutter Tender Name Role Phone Min Elizalde MD Unavailable GILBERT PECK, STEFAN Alcazar Unavailable [phone] STEFAN HUNT MD Unavailable PROBLEMS Condition Status Date Provider Notes Hypercholesterolemia active Rae Moctezuma RN Dyspnea on exertion active Dieog Traylor CHEST PAIN-?TYPE, NEG STRESS ECHO AND GB 2006 active - Min Elizalde MD DEPRESSION active Min Elizalde MD FIBROMYALGIA active Min Elizalde MD ABNORMAL ELECTROCARDIOGRAM:H OSP STRESS ECHO NEG? active - Min Elizalde MD FAMILY HX CARDIOVASCULAR DISEASE active Mikey Elizalde MD HIATAL HERNIA;barretts, lymphocitic colitis active [...] DUP DONN 12 active Min Elizalde MD hx of DIASTOLIC CHF;pro bnp 345 active Yamilka Elizalde MD MICROVASCULAR ANGINA; active Min Elizalde MD PVD;JUAN .87 13 active Min Elizalde MD DYSPNEA ON EXERTION;LIKELY PULMANREY completed - Min Elizalde MD LVH;nml ef 14 active Min Elizalde MD Left atrial enlargement active Min jennings MD PANCREATITIS; active Min Elizalde MD ISCHEMIA;POS STRESS/NEG NUC 12, 50% RCA 13 active Min Elizalde MD CAD;mild carotid plaquing active Min talbert MD Overweight;did not want medifast active Mikey Elizalde MD TOBACCO ABUSE active Min Elizalde MD LOW HDL;ON NIASPAN completed - Min Elizalde MD ANGINA PECTORIS:RARE completed - Min Elizalde MD STENT;XENCIE 12 TO OM, OPEN 13 active Marcelo Elizalde MD HYPOTHYROIDISM;ON RX PER PRIMARY active Mikey Elizalde MD LIVER DISEASE:NEG GB 2006 completed - Min Elizalde MD HTN ESSENTIAL;LABS PER PRIMA RY NEG RENAL ANGIO 05/10 active Min Elizalde MD HYPERCHOLESTEROLEMIA;GOOD 13 active Min Elizalde MD ENCOUNTERS Date Type Provider Location Encounter Diag nosis - In-person encounter Office Visit Min Elizalde MD [facility] HIATAL HERNIA;barretts, lymphocitic colitisPRIMARY BILIARY CIRRHOSIS;NEG GB US, nml prottime, mild liver dzOverweight;did not want medifastDIASTOLIC DYSFUNCTION;NML EF 2012 AND 14CAD;mild carotid plaquinghx of DIASTOLIC CHF;pro bnp 345DYSPNEA ON EXERTION;LIKELY PULMANREYLVH;nml ef 14Left atrial enlargement - In-person encounter Office Visit Min Elizalde MD [facility] Overweight;did not want medifastDIASTOLIC DYSFUNCTION;NML EF 2012 AND 14MICROVASCULAR ANGINA;PANCREATITIS;PVD; JUAN .87 13 - In-person encounter Office Visit Min Elizalde MD [facility] HYPERCHOLESTEROLEMIA;GOO D 13STENT;XENCIE 12 TO OM, OPEN 13LOW HDL;ON NIASPANOverweight;did not want medifastISCHEMIA;POS STRESS/NEG NUC 12, 50% RCA 13hx of DIASTOLIC CHF;pro bnp 345MICROVASCULAR ANGINA;PANCREATITIS; - In-person encounter Office Visit Candido Diaz MD [facility] - In-person encounter Office Visit Min Elizalde MD [facility] STENT;XENCIE 12 TO OM, OPEN 13ISCHEMIA;FALSE NEG SUB MAX NUC 12, RESIDUAL 40% RCA P STENTDIASTOLIC DYSFUNCTION;NML EF 08 AND 11DIASTOLIC DYSFUNCTION;NML EF 2012 AND 14AORTIC VALVE SCLEROSIS;12VENOUS INSUFFICIENCY;NEG DUPLEX 12ISCHEMIA;POS STRESS/NEG NUC 12, 50% RCA 13 - In-person encounter Office Visit Carlitos Perry MD [facility] STENT;XENCIE 12 TO OM, OPEN 13 - In-person encounter Office Visit Min Elizalde MD [facility] HYPERCHOLESTEROLEMIA;GOO D 13Overweight;did not want medifastDIASTOLIC DYSFUNCTION;NML EF 2012 AND 14CAD;mild carotid plaquingVENOUS INSUFFICIENCY;NEG DUPLEX 12 - In-person encounter Office Visit Min Elizalde MD [facility] HYPERCHOLESTEROLEMIA;GOO D 13HTN ESSENTIAL;LABS PER PRIMARY NEG RENAL ANGIO 05/10LIVER DISEASE:NEG GB 2006HYPOTHYROIDISM;ON RX PER PRIMARYSTENT;XENCIE 12 TO OM, OPEN 13ANGINA PECTORIS:RAREPRIMARY BILIARY CIRRHOSIS;NEG GB US, nml prottime, mild liver dzDIASTOLIC DYSFUNCTION;NML EF 08 AND 11TOBACCO ABUSEOverweight;did not want medifastDIASTOLIC DYSFUNCTION;NML EF 2012 AND 14CAD;mild carotid plaquing - In-person encounter Office Visit Min Elizalde MD [facility] HYPERCHOLESTEROLEMIA;GOO D 13HTN ESSENTIAL;LABS PER PRIMARY NEG RENAL ANGIO 05/10CHEST PAIN-?TYPE, NEG STRESS ECHO AND GB 2006ABNORMAL ELECTROCARDIOGRAM:HOSP STRESS ECHO NEG?STENT;XENCIE 12 TO OM, OPEN 13HIATAL HERNIA;barretts, lymphocitic colitisLOW HDL;ON NIASPAN - In-person encounter Office Visit Min Elizalde MD [facility] HYPERCHOLESTEROLEMIA;GOO D 13HTN ESSENTIAL;LABS PER PRIMARY NEG RENAL ANGIO 05/10DEPRESSIONFIBROMYAL GIALIVER DISEASE:NEG GB 2006FAMILY HX CARDIOVASCULAR DISEASEHYPOTHYROIDISM;ON RX PER PRIMARY VITAL SIGNS Date Observation Value Provider Body Mass Index (Ratio) 28.12 kg/m2 Higuera i Emily blood pressure, diastolic 60 mm[Hg] Ke rri Emily blood pressure, systolic 110 mm[Hg] Alina Diaz pulse rate 68 /min Marisela Sarmiento [facility] oxygen saturation, oximetry 96 % Marisela Diaz [...] Sam marcus [place] pulse rate 73 /min Srikatnh [place] oxygen saturation, oximetry 99 % Srikanth [...] ALMEIDA blood pressure, systolic 140 mm[Hg] Ryan Castillotirxie ALMEIDA pulse rate 88 /min Ryan Castillotirxie ALMEIDA oxygen saturation, oximetry 96 % Ryan [...] Bell alanine aminotransferase (SGPT), serum 15 1/L [facility] aspartate aminotransferase (SGOT), serum [...] MCG TABS active ONE TAB. DAILY Elizabeth Kiana ETODOLAC ER 400MG completed TAKE ONE TABLET [...] physical exercise, frequency, days per week no [facility] caffeine use, averag e drinks per day yes [facility] alcohol use, average drinks per day social basis only [facility] number of years as a smoker 10 years or m ore [facility] smoking status Quit [facility] MENTAL STATUS Date Observation Value Provider [...] Payer name Policy type / Coverage type [facility] [id number] Other [id number] TREATMENT PLAN Date Name Performer Min Elizalde [...] tab. daily Isosorbide Mononitrate Er 30 Mg [id number] (Isosorbide mononitrate) ..... 1 tab po daily. Orders: B TYPE NATRIURETIC PEPTIDE (BNP) (46042) F ull PFT (*) Min Elizalde MD : O rders: P ROTHROMBIN TIME WITH INR (8847) P ARTIAL THROMBOPLASTIN TIME, ACTIVATED (763) T HYROID PANEL WITH TSH, 3RD GENERATION (7444) B TYPE NATRIURETIC PEPTIDE (BNP) (05434) F ull PFT (*) Min Elizalde MD [...] at bedtime Isosorbide Mononitrate Er 30 Mg [id number] (Isosorbide mononitrate) ..... 1 tab po daily. Orders: C OMPREHENSIVE METABOLIC PANEL W/EGFR (00061) L IPID PANEL (7600) V ITAMIN B12 (927) H EMOGLOBIN A1c (496) V ITAMIN D, 25-HYDROXY, LC/MS/MS (90434) Min Elizalde MD : T he following [...] at bedtime Isosorbide Mononitrate Er 30 Mg [id number] (Isosorbide mononitrate) ..... 1 tab po daily. Orders: E KG (CPT-32007) C OMPREHENSIVE METABOLIC PANEL W/EGFR (30717) L IPID PANEL (7600) V ITAMIN B12 (927) H EMOGLOBIN A1c (496) V ITAMIN D, 25-HYDROXY, LC/MS/MS (46197) Min Elizalde MD : O rders: C OMPREHENSIVE METABOLIC PANEL W/EGFR (92986) L IPID PANEL (7600) V ITAMIN B12 (927) H EMOGLOBIN A1c (496) V ITAMIN D, 25-HYDROXY, LC/MS/MS (73196) L IPASE (13886) P ROTHROMBIN TIME WITH INR (8847) P ARTIAL THROMBOPLASTIN TIME, ACTIVATED (763) T HYROID PANEL WITH TSH, 3RD GENERATION (7444) B TYPE NATRIURETIC PEPTIDE (BNP) (63699) F ull PFT (*) Min Elizalde MD : O rders: C OMPREHENSIVE METABOLIC PANEL W/EGFR (59443) L IPID PANEL (7600) V ITAMIN B12 (927) H EMOGLOBIN A1c (496) V ITAMIN D, 25-HYDROXY, LC/MS/MS (64942) L IPASE (41549) P ROTHROMBIN TIME WITH INR (8847) P ARTIAL THROMBOPLASTIN TIME, ACTIVATED (763) T HYROID PANEL WITH TSH, 3RD GENERATION (7444) B TYPE NATRIURETIC PEPTIDE (BNP) (71473) F ull PFT (*) Min Elizalde MD [...] tab. daily Isosorbide Mononitrate Er 30 Mg [id number] (Isosorbide mononitrate) ..... 1 tab po daily. Orders: C OMPREHENSIVE METABOLIC PANEL W/EGFR (81647) L IPID PANEL (7600) V ITAMIN B12 (927) H EMOGLOBIN A1c (496) V ITAMIN D, 25-HYDROXY, LC/MS/MS (86399) L IPASE (76737) P ROTHROMBIN TIME WITH INR (8847) P ARTIAL THROMBOPLASTIN TIME, ACTIVATED (763) T HYROID PANEL WITH TSH, 3RD GENERATION (7444) B TYPE NATRIURETIC PEPTIDE (BNP) (88082) F ull PFT (*) Min Elizalde MD : O rders: C OMPREHENSIVE METABOLIC PANEL W/EGFR (97985) L IPID PANEL (7600) V ITAMIN B12 (927) H EMOGLOBIN A1c (496) V ITAMIN D, 25-HYDROXY, LC/MS/MS (89050) L IPASE (40030) P ROTHROMBIN TIME WITH INR (8847) P ARTIAL THROMBOPLASTIN TIME, ACTIVATED (763) T HYROID PANEL WITH TSH, 3RD GENERATION (7444) B TYPE NATRIURETIC PEPTIDE (BNP) (23911) F ull PFT (*) Min Elizalde MD [...] MD routine: O rders: C omplete Echo (CPT-59913) E CP Commercial (CPT-87898) e Prescribe - Check this box if eRx is used (CPT-G8553) A rterial Duplex Bi-Lower EX (CPT-88044) Min Elizalde MD routine: H er updated medication list for this problem includes: Levothroid 50 Mcg Tabs (Levothyroxine sodium) ..... One tab. daily Labs Reviewed: T SH: 1.020 (11/27/2011) C hol: 148 (11/27/2011) LDL: 64 (11/27/2011) Orders: C omplete Echo (CPT-32402) E CP Commercial (CPT-96868) e Prescribe - Check this box if eRx is used (CPT-G8553) A rterial Duplex Bi-Lower EX (CPT-05535) Min Elizalde MD routine: H er updated [...] tablet daily Isosorbide Mononitrate Er 30 Mg [id number]-[id number] (Isosorbide mononitrate) ..... 1 tab po daily. [...] 60%. Normal left ventricular systolic function. - [facility] (02/25/2012) C ardiac Cath Comments: Successful stenting of the obtuse marginal branch with a 2.5 x 15 mm Xience stent. - [facility] (02/24/2012) C arotid Doppler/Duplex: Mild plaque with [...] 1.020 (11/27/2011) O rders: C omplete Echo (CPT-36323) E CP Commercial (CPT-75431) e Prescribe - Check this box if eRx is used (CPT-G8553) A rterial Duplex Bi-Lower EX (CPT-89460) Min Elizalde MD routine: O rders: C omplete Echo (CPT-58528) E CP Commercial (CPT-57689) e Prescribe - Check this box if eRx is used (CPT-G8553) A rterial Duplex Bi-Lower EX (CPT-50476) Min Elizalde MD routine: O rders: C omplete Echo (CPT-44791) E CP Commercial (CPT-39093) e Prescribe - Check this box if eRx is used (CPT-G8553) A rterial Duplex Bi-Lower EX (CPT-69088) Min Elizalde MD routine: H er updated [...] tablet daily Isosorbide Mononitrate Er 30 Mg [id number]-tcc (Isosorbide mononitrate) ..... 1 tab po daily. [...] 60%. Normal left ventricular systolic function. - [facility] (02/25/2012) C ardiac Cath Comments: Successful stenting of the obtuse marginal branch with a 2.5 x 15 mm Xience stent. - [facility] (02/24/2012) C arotid Doppler/Duplex: Mild plaque with [...] 1.020 (11/27/2011) O rders: C omplete Echo (CPT-39816) E CP Commercial (CPT-22357) e Prescribe - Check this box if eRx is used (CPT-G8553) A rterial Duplex Bi-Lower EX (CPT-60890) Min Elizalde MD routine: O rders: C omplete Echo (CPT-40759) E CP Commercial (CPT-50280) e Prescribe - Check this box if eRx is used (CPT-G8553) A rterial Duplex Bi-Lower EX (CPT-70435) Min Elizalde MD routine: O rders: C omplete Echo (CPT-86043) E CP Commercial (CPT-01956) e Prescribe - Check this box if eRx is used (CPT-G8553) A rterial Duplex Bi-Lower EX (CPT-63227) Min Elizalde MD hosp f/u: H er [...] tablet daily Isosorbide Mononitrate Er 30 Mg [id number]-[id number] (Isosorbide mononitrate) ..... 1 tab po daily. [...] 60%. Normal left ventricular systolic function. - [facility] (02/25/2012) C ardiac Cath Comments: Successful stenting of the obtuse marginal branch with a 2.5 x 15 mm Xience stent. - [facility] (02/24/2012) C arotid Doppler/Duplex: Mild plaque with [...] 78% which is within normal limits. - [facility] (12/10/2011) C ardiac Cath: coronary artery disease with 80% of the obtuse marginal branch, 40% of the distal RCA, EF of 60%. - [facility] (12/10/2011) C ardiac Cath Comments: Successful stenting of the obtuse marginal branch with a 2.5 x 12mm vision stent. - [facility] (12/10/2011) C arotid Doppler/Duplex: Mild plaque with [...] 78% which is within normal limits. - [facility] (12/10/2011) C ardiac Cath: coronary artery disease with 80% of the obtuse marginal branch, 40% of the distal RCA, EF of 60%. - [facility] (12/10/2011) Cardiac Cath Comments: Successful stenting of the obtuse marginal branch with a 2.5 x 12mm vision stent. - [facility] (12/10/2011) Carlitos Perry MD chest pain: B [...] 78% which is within normal limits. - [facility] (12/10/2011) C ardiac Cath: coronary artery disease with 80% of the obtuse marginal branch, 40% of the distal RCA, EF of 60%. - [facility] (12/10/2011) C ardiac Cath Comments: Successful stenting of the obtuse marginal branch with a 2.5 x 12mm vision stent. - [facility] (12/10/2011) C arotid Doppler/Duplex: Mild plaque with [...] vity : O rders: C omplete Echo (CPT-54643) C ardiac Cath - Left - GC (*) V enous Doppler Bilateral LE - Standing (CPT-22734) Min Elizalde MD chest pain with acti vity : H er updated medication list for this problem includes: Levothroid 50 Mcg Tabs (Levothyroxine sodium) ..... One tab. daily Orders: C omplete Echo (CPT-54971) C ardiac Cath - Left - GC (*) Min Elizalde MD chest pain with acti vity : O rders: C omplete Echo (CPT-07029) C ardiac Cath - Left - GC (*) V enous Doppler Bilateral LE - Standing (CPT-01360) Min Elizalde MD chest pain with acti vity : O rders: C omplete Echo (CPT-44693) C ardiac Cath - Left - GC (*) V enous Doppler Bilateral LE - Standing (CPT-87040) Min Elizalde MD chest pain with acti vity : O rders: C omplete Echo (CPT-58681) C ardiac Cath - Left - GC (*) V enous Doppler Bilateral LE - Standing (CPT-51702) Min Elizalde MD chest pain with activity [...] 78% which is within normal limits. - [facility] (12/10/2011) C ardiac Cath: coronary artery disease with 80% of the obtuse marginal branch, 40% of the distal RCA, EF of 60%. - [facility] (12/10/2011) C ardiac Cath Comments: Successful stenting of the obtuse marginal branch with a 2.5 x 12mm vision stent. - [facility] (12/10/2011) C arotid Doppler/Duplex: Mild plaque with [...] INR: 1.1 (05/31/2008) Orders: C omplete Echo (CPT-37540) C ardiac Cath - Left - GC (*) V enous Doppler Bilateral LE - Standing (CPT-43521) Min Elizalde MD chest pain with acti [...] 78% which is within normal limits. - [facility] (12/10/2011) C ardiac Cath: coronary artery disease with 80% of the obtuse marginal branch, 40% of the distal RCA, EF of 60%. - [facility] (12/10/2011) C ardiac Cath Comments: Successful stenting of the obtuse marginal branch with a 2.5 x 12mm vision stent. - [facility] (12/10/2011) C arotid Doppler/Duplex: Mild plaque with [...] (05/31/2008) INR: 1.1 (05/31/2008) Orders: E KG (CPT-15250) C omplete Echo (CPT-28823) C ardiac Cath - Left - GC (*) V enous Doppler Bilateral LE - Standing (CPT-13172) Min Elizalde MD hosp f/u Min Elizalde MD hosp f/u : O rders: C arotid Duplex Bilateral (CPT-69480) C omplete Echo (CPT-37590) Min Elizalde MD hosp f/u : O rders: C arotid Duplex Bilateral (CPT-33387) Min Elizalde MD hosp f/u : H [...] : O rders: C arotid Duplex Bilateral (CPT-05512) Min Elizalde MD hosp f/u : H er updated medication list for this problem includes: Levothroid 50 Mcg Tabs (Levothyroxine sodium) ..... One tab. daily Orders: C arotid Duplex Bilateral (CPT-00074) Min Elizalde MD hosp f/u : O rders: C arotid Duplex Bilateral (CPT-69148) Min Elizalde MD hosp f/u : H [...] the distal RCA, EF of 60%. - [facility] (12/10/2011) C ardiac Cath Comments: Successful stenting of the obtuse marginal branch with a 2.5 x 12mm vision stent. - [facility] (12/10/2011) H gb: 13.4 (05/31/2008) HCT: 40.5 (05/31/2008) RBC: 4.46 (05/31/2008) WBC: 5.7 (05/31/2008) B UN: 5 (05/31/2008) Creat: 0.72 (05/31/2008) Glucose: 118 (05/31/2008) N a+: 137 (05/31/2008) K+: 4.1 (05/31/2008) PT: 10.7 (05/31/2008) INR: 1.1 (05/31/2008) Min Elizalde MD hosp f/u : O rders: C arotid Duplex Bilateral (CPT-39709) C omplete Echo (CPT-85365) Min Elizalde MD hosp f/u : H er updated medication list for this problem includes: Zestril 2.5 Mg Tabs (Lisinopril) ..... One tab. daily Aspirin 81 Mg Tabs (Aspirin) ..... One tab. daily BP today: / Prior BP: 142/83 (07/06/2008) C ardiac Cath: coronary artery disease with 80% of the obtuse marginal branch, 40% of the distal RCA, EF of 60%. - [facility] (12/10/2011) C ardiac Cath Comments: Successful stenting of the obtuse marginal branch with a 2.5 x 12mm vision stent. - [facility] (12/10/2011) H gb: 13.4 (05/31/2008) HCT: 40.5 [...] Elizalde MD Date Name DLCO Order - 66895 FR Order - 33610 FVC Order - 51040 Full PFT PROBNP, N TERMINAL Complete Echo [...] Min Elizalde MD complete d DLCO - 56904 Min Elizalde MD comple marsha FRC - 18930 Min Elizalde MD complet ed FVC - 41274 Min Elizalde MD complet ed EKG Min [...] used Min Elizalde MD completed EKG Min Elizalde MD complete d EKNa Elizalde MD complete d
[2024-11-25 15:39] VITALS: BP 148/74; PULSE 106; RESP 18; TEMP 36.4; O2SAT 96
--- NOTE | 2024-11-25 16:00 | ED_ITS ---
HPI - Nausea/Vomiting/Diarrhea General Chief complaint: Nausea/Vomiting/Diarrhea Stated complaint: diarrhea Time Seen by Provider: 11/25/24 15:45 Source: patient Mode of arrival: ambulatory Limitations: no limitations History of Present Illness HPI Narrative: Nano is a 69-year-old female patient presenting to the clinic today with complaints of diarrhea and abdominal cramping. She reports her symptoms have been ongoing for over 1 year. Does see GI specialty Chelsy Aranda NP and was prescribed cholestyamine. States the medication does work however it is very hard to take as she there medications that she has to take and it does not fit well in her schedule. Does take Kaopectate as needed at times. Denies any blood in her stool. States she recently had a stool study done and it was negative for C diff but does not recall if they did any culture or ova/ parasite testing. Came into the clinic today because she started developing abdominal cramping which is not normal for her diarrhea. Related Data Home Medications ?Medication ?Instructions ?Recorded ?Confirmed ?Last Taken ?Type aspirin 81 mg tablet,delayed 81 mg PO DAILY 12/18/21 01/07/24 Unknown History release atorvastatin 20 mg tablet 20 mg PO DAILY 12/18/21 01/07/24 Unknown History cetirizine 10 mg tablet (Zyrtec) 10 mg PO DAILY PRN Allergy Symptoms 12/18/21 Unknown History citalopram 20 mg tablet 20 mg PO DAILY 12/18/21 01/07/24 Unknown History ezetimibe 10 mg tablet (Zetia) 10 mg PO DAILY 12/18/21 01/07/24 Unknown History isosorbide mononitrate 30 mg 30 mg PO DAILY 12/18/21 01/07/24 Unknown History tablet,extended release 24 hr levothyroxine 25 mcg tablet 25 mcg PO DAILY 12/18/21 01/07/24 Unknown History omeprazole 40 mg capsule,delayed 40 mg PO BID 12/18/21 01/07/24 Unknown History release trazodone 50 mg tablet 50 mg PO HS 12/18/21 01/07/24 Unknown History triamterene 37.5 1 tablet PO QAM 12/18/21 01/07/24 Unknown History mg-hydrochlorothiazide 25 mg tablet (Maxzide-25mg) ursodiol 500 mg tablet 500 mg PO BID 12/18/21 01/07/24 Unknown History gabapentin 300 mg capsule 600 mg PO TID 01/07/24 01/07/24 Unknown History Allergies Allergy/AdvReac Type Severity Reaction Status Date / Time pregabalin AdvReac Nausea and Verified 11/25/24 15:45 Vomiting propoxyphene AdvReac Nausea and Verified 11/25/24 15:45 Vomiting rosuvastatin AdvReac Other Verified 11/25/24 15:45 Review of Systems Review of Systems: Pertinent positives per HPI. Patient denies any fever, chills, rash, headache, visual changes, dizziness, cough, runny nose, sore throat, shortness of breath, chest pain, palpitations, nausea, vomiting, diarrhea, constipation, abdominal pain, or any urinary issues. [facility] Past Medical History Medical History Tobacco use GERD (gastroesophageal reflux disease) Diarrhea Fibromyalgia Hyperlipidemia Hypertension Social History Social History Social History: lives alone 1 story home with 2-3 steps to enter Smoking packs per day: 1 Smoking cigarettes per day: 20.0 Years smoked: 30 Smoking pack-years: 30.00 Smoking status: Current every day smoker Tobacco type: cigarettes Second hand tobacco smoke exposure: Yes Comments At the time of my signature, I reviewed and agree with the nursing past medical, surgical, social, and family history. There is no relevant family history pertinent to the patient complaint. Exam Narrative: General: Well-developed, well nourished, in no apparent distress. Head: Normocephalic, atraumatic. Cardio: Regular rate and rhythm, s1 and s2 normal, no murmur appreciated. Resp: Clear to auscultation bilaterally, no rhonchi, rales, wheezing or rubs. Abdomen: Soft, pliable, bowel sounds present in all quadrants, generalized tender to palpation, no organomegly, no CVAT tenderness. Course Course Emergency Course: Portions of this record may have been created with voice recognition software. Level of Care: Express Care Visit Vital Signs Vital signs: Vital Signs Temperature 36.4 C 11/25/24 15:39 Pulse Rate 106 H 11/25/24 15:39 Respiratory Rate 18 11/25/24 15:39 Blood Pressure 148/74 H 11/25/24 15:39 Pulse Oximetry 96 11/25/24 15:39 Oxygen Delivery Room Air 11/25/24 15:39 Temperature 36.4 C 11/25/24 15:39 Pulse Rate 106 H 11/25/24 15:39 Respiratory Rate 18 11/25/24 15:39 Blood Pressure 148/74 H 11/25/24 15:39 Pulse Oximetry 96 11/25/24 15:39 Oxygen Delivery Room Air 11/25/24 15:39 Vital signs reviewed MDM - Nausea/Vomiting/Diarrhea MDM Narrative Medical decision making narrative: At the time of visit patient is resting comfortably on the exam table. Patient appears to be nontoxic. Diagnostics: KUB x-ray was negative for any acute abdomen pathology Plan: I suspect patient has chronic diarrhea. Recommend follow-up with GI specialist-call office to schedule an appointment on Thursday in regards to your chronic diarrhea. No signs dehydration in the clinic today. Supportive me asures were discussed with the patient and they voiced understanding discharge instructions and agrees to treatment plan. Return precautions reviewed Differential Diagnosis Differential diagnosis: Likely traveler's diarrhea, food poisoning, gastroenteritis, clostridium difficile infection, drug-induced nausea and vomiting, dehydration and other (Chronic functional diarrhea) Imaging Data Radiologist's impression: ITS Impressions Abdomen X-Ray 11/25/24 16:26 IMPRESSION: NO ACUTE ABDOMINAL FINDINGS. Discharge Plan Discharge Clinical Impression: Chronic diarrhea Patient Disposition: Home Condition: Stable Instructions: Antibiotic Form, Chronic Diarrhea (ED) Additional Instructions: X-rays negative for any acute abdomen pathology Increase fluids and stay well hydrated Tylenol/motrin for pain/fever May take Imodium or Kaopectate for symptoms Eat a bland diet-avoid foods that cause bloating, spicy, fatty, or greasy foods BRAT diet for diarrhea Clear liquids x 24 hours then advance as tolerated for nausea/vomiting Go to the ED if you develop a worsening in your condition- high fever not controlled by Tylenol or Motrin, dehydration, weakness, lethargy, shortness of breath, or chest pain. Follow up with your PCP in 3-5 days if symptoms persist. Follow-up with GI specialist as discussed-call on Thursday to schedule an appointment Patient Language: Maori Prescriptions: No Action atorvastatin 20 mg Tablet 20 mg PO DAILY trazodone 50 mg Tablet 50 mg PO HS cetirizine [Zyrtec] 10 mg Tablet 10 mg PO DAILY PRN (Reason: Allergy Symptoms) isosorbide mononitrate 30 mg Tablet Extended Release 24 Hr 30 mg PO DAILY omeprazole 40 mg Capsule,Delayed Release(Dr/Ec) 40 mg PO BID aspirin 81 mg Tablet,Delayed Release (Dr/Ec) 81 mg PO DAILY levothyroxine 25 mcg Tablet 25 mcg PO DAILY citalopram 20 mg Tablet 20 mg PO DAILY triamterene-hydrochlorothiazid [Maxzide-25mg] 37.5-25 mg Tablet 1 tablet PO QAM ezetimibe [Zetia] 10 mg Tablet 10 mg PO DAILY ursodiol 500 mg Tablet 500 mg PO BID melatonin 3 mg Tablet 6 mg PO HS Qty: 0 0RF calcium carbonate [Oyster Shell Calcium 500] 500 mg calcium (1,250 mg) Tablet 500 mg PO BIDWM Qty: 0 0RF ascorbic acid (vitamin C) [Vitamin C] 500 mg Tablet 500 mg PO DAILY Qty: 30 0RF cholecalciferol (vitamin D3) [Vitamin D3] 25 mcg (1,000 unit) Tablet 1,000 units PO DAILY Qty: 0 0RF Shey-Bid 1 billion cell- 250 mg Tablet 1 tablet PO BID Qty: 60 0RF lisinopril 2.5 mg Tablet 5 mg PO DAILY 30 Days Qty: 60 0RF gabapentin 300 mg capsule 600 mg PO TID Follow-up/Referrals: Lasha,MD Ranjeet [Primary Care Provider] - Time of Disposition: 16:51 Quality NIHSS Nursing Documentation ED NIHSS nursing documentation: reviewed/agree
== END 2024-11-25 17:04 | disposition home or self-care (01) ==
PROVIDERS: Emergency Provider Nurse Practitioner Family; PCP Internal Medicine
DX: R19.7 Diarrhea, unspecified (principal); E78.5 Hyperlipidemia, unspecified; I10 Essential (primary) hypertension; F17.210 Nicotine dependence, cigarettes, uncomplicated
CPT/HCPCS: 74018; 99213; G0463

== ENCOUNTER 2025-02-07 15:17 | Outpatient (CLI) | payer MEDICARE, SELFPAY ==
--- NOTE | ~2025-02-07 | XR_ITS ---
EXAM/ PROCEDURE: XR lumbar spine 2-3V - 02/07/2025 15:57 CDT HISTORY: 70 years old Female with CERVICALGIA;PAIN IN THOR SPINE;LBP COMPARISON: None available TECHNIQUE: Three view(s) FINDINGS/ IMPRESSION: There are no fractures or dislocations.Multilevel degenerative changes are seen. Intervertebral disc space narrowing at L3-4, L4-5 and L5-S1. Atherosclerotic calcifications are noted. Surgical clips are seen in the left upper quadrant. Reviewed, dictated and finalized at location A.
--- NOTE | ~2025-02-07 | XR_ITS ---
EXAM/ PROCEDURE: XR_CERV2-3V_CR - 02/07/2025 15:57 CDT HISTORY: 70 years old Female with CERVICALGIA;PAIN IN THOR SPINE;LBP COMPARISON: None available TECHNIQUE: Three view(s) FINDINGS/ IMPRESSION: There are no fractures or dislocations.Multilevel degenerative changes are seen. Visualized portion o f lungs are clear. Reviewed, dictated and finalized at location A.
--- NOTE | ~2025-02-07 | XR_ITS ---
HISTORY: CERVICALGIA;PAIN IN THOR SPINE;LBP COMPARISON: None TECHNIQUE: 3 views of the thoracic spine were performed FINDINGS: S-shaped curvature of the thoracic spine is identified. Vertebral body height loss is present within the mid to lower thoracic spine suggesting osteoporosis and prior compression fractures. Diffuse bony demineralization is identified. Densely calcified atherosclerotic disease is identified within the thoracic aorta IMPRESSION: Vertebral body height loss within the mid to lower thoracic spine suggesting osteoporosi s and prior compression fractures. Diffuse bony demineralization and S-shaped curvature of the thoracic spine. Reviewed, dictated and finalized at location A. IMPRESSION: Vertebral body height loss within the mid to lower thoracic spine suggesting osteoporosis and prior compression fractures. Diffuse bony demineralization and S-shaped curvature of the thoracic spine.
--- OUTSIDE RECORDS SUMMARY | 2025-02-07 15:33 | XMS_ITS | Clinical Summary ---
Author Organization [facility] Address [address] [place] [address] Care Team Providers Care Mercerizing Range Feeder Name Role Phone Ranjeet Colby MD Primary Care Provider [phone] Allergies Active Allergy Reactions Criticality Noted Date [...] 1 tablet (25 mcg total) by mouth probation worker before breakfast Active lisinopriL (PRINIVIL,ZESTRI L) 2.5 [...] (05/31/2021): Added automatically from request for surgery [id number] Coronary atherosclerosis 05/28/2021 Closed fracture of proximal end of right fibula 05/27/2021 HTN (hypertension) 05/27/2021 Hypothyroidism 05/27/2021 Hyperlipidemia 05/27/2021 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 05/27/2021 Acute traumatic pain 05/27/2021 Fracture of tibial plateau 05/26/2021 Overview (05/27/2021): Added automatically from request for surgery [id number] Closed fracture of lateral portion of right tibi al plateau 05/26/2021 Overview (05/29/2021): Added automatically from request for surgery [id number] Surgical History Surgery Date Site/Laterality Comments BACK [...] on file 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 Gender Identity Not on file Sexual Orientation [...] 11:17 AM CDT Height 160 cm (5' 3) 02/24/2023 10:44 AM CDT Body Mass Index [...] 2023-2 5 season) 2024 08/28/2021, 11/18/2020, 10/12/2020 Osteoporosis Screening-Bone Density Scan 04/02/2025 04/02/2023 Influenza Vaccine (Season Ended) 2025 05/20/2021, 06/29/2020, 06/09/2019, Additional history exists Medical Devices Implanted Type Area Automotive Window Tinter Device Identifier Shelf Expiration Date Model / Serial / Lot Allosource [id number] Cubes Graft 15ml Bone Cancellous - [id number] - [id number] Implanted:Qty: 1 on 06/12/2021 by Sara Johnson MD at [facility] Bone Right: Leg Allosource 11/26/2025 [id number] / [id number] / Description:AlloSource ID: [id number] [employer]/Orth o [id number] Evos 113x11.5x3.6mm 32.3x1.9mm 8 Hole Low Profile Variable Angle - [id number] Implanted:Qty: 1 on 06/12/2021 by Sara Johnson MD at [facility] Plate Right: Tibia [employer]/O rtho [id number] / / [employer]/Orth o [id number] Evos 3.5mm 70mm Self Tap Lock Screw Bone Sterile - [id number] Implanted:Qty: 3 on 06/12/2021 by Sara Johnson MD at [facility] Screw Right: Tibia [employer]/O rtho [id number] / / [employer]/Orth o [id number] Evos 3.5mm 65mm Self Tap Lock Screw Bone Sterile - [id number] Implanted:Qty: 1 on 06/12/2021 by Sara Johnson MD at [facility] Screw Right: Tibia [employer]/O rtho [id number] / / [employer]/Orth o [id number] Evos 3.5mm 38mm Self Tap Lock Screw Bone Sterile - [id number] Implanted:Qty: 1 on 06/12/2021 by Sara Johnson MD at [facility] Screw Right: Tibia [employer]/O rtho [id number] / / [employer]/Orth o [id number] Evos 3.5mm 28mm Self Tap Lock Screw Bone Sterile - [id number] Implanted:Qty: 1 on 06/12/2021 by Sara Johnson MD at [facility] Screw Right: Tibia [employer]/O rtho [id number] / / [employer]/Orth o [id number] Evos 3.5mm 34mm Self Tap Cortex Screw Bone Sterile - [id number] Implanted:Qty: 1 on 06/12/2021 by Sara Johnson MD at [facility] Screw Right: Tibia [employer]O rtho [id number] / / [employer]/Orth o [id number] - [id number] Implanted:Qty: 1 on 06/12/2021 by Sara Johnson MD at [facility] Screw Right: Tibia [employer]O rtho [id number] / / Synthes 294.55sha Pin 5mm 170mm Half Stainless Steel Hydroxyapatite Troc Blnt - [id number] Implanted:Qty: 4 on 05/27/2021 by Arthur Wiseman MD at [facility] Right: Leg Synthes I 294.55SHA / / [employer]/Orth o [id number] Evos 3.5mm 32mm Self Tap Cortex Screw Bone Sterile - [id number] Implanted:Qty: 1 on 05/30/2021 by Sara Johnson MD at [facility] Right: Tibia [employer]/O rtho [id number] / / [employer]/Orth o [id number] Evos 3.5mm 30mm Self Tap Lock Screw Bone Sterile - [id number] Implanted:Qty: 1 on 05/30/2021 by Sara Johnson MD at [facility] Right: Tibia [employer]/O rtho [id number] / / [employer]/Orth o [id number] Evos 3.5mm 22mm Self Tap Cortex Screw Bone Sterile - [id number] Implanted:Qty: 1 on 05/30/2021 by Sara Johnson MD at [facility] Right: Tibia [employer]/O rtho [id number] / / [employer]/Orth o [id number] Evos 3.5mm 26mm Self Tap Lock Screw Bone Sterile - [id number] Implanted:Qty: 1 on 05/30/2021 by Sara Johnson MD at [facility] Right: Tibia [employer]/O rtho [id number] / / [employer]/Orth o [id number] Evos 3.5mm 36mm Self Tap Lock Screw Bone Sterile - [id number] Implanted:Qty: 1 on 05/30/2021 by Sara Johnson MD at [facility] Right: Tibia [employer]/O rtho [id number] / / [employer]/Orth o [id number] Evos 3.5mm 34mm Self Tap Lock Screw Bone Sterile - [id number] Implanted:Qty: 1 on 05/30/2021 by Sara Johnson MD at [facility] Right: Tibia [employer]/O rtho [id number] / / [employer]/Orth o [id number] Evos 138mm 10 Hole Tibia Right Proximal Medial Plate Bone Sterile - [id number] Implanted:Qty: 1 on 05/30/2021 by Sara Johnson MD at [facility] Right: Tibia [employer]/O rtho [id number] / / Explanted Type Area Automotive Window Tinter Device Identifier Shelf Expiration Date Model / Serial / Lot [employer] 1600-9625ns Claudia .062in 9in Trocar Point One End Orthopedic Wire - [id number] Explanted:Qty: 2 on 05/30/2021 at [facility] Right: Tibia [employer] [id number] S / / [employer] 1600-9455ns Claudia .45in 9in 1 Trocar Point Orthopedic Wire Fixation - [id number] Explanted:Qty: 1 on 06/12/2021 by Sara Johnson MD at [facility] Right: Tibia [employer] 1600-9455N S / / [employer] 1600-9625ns Claudia .062in 9in Trocar Point One End Orthopedic Wire - [id number] Explanted:Qty: 2 on 06/12/2021 by Sara Johnson MD at [facility] Right: Tibia [employer] 1600-9625N S / / Synthes 294.786 Schanz 5mm 200mm 80mm Self Drill Mr Conditional Screw External - [id number] Explanted:Qty: 2 on 06/12/2021 by Sara Johnson MD at [facility] Right: Tibia Synthes I 294.786 / / Insurance MEDICARE COMMERCIAL GENERIC MEDICARE COMMERCIAL GENERIC MEDICARE [facility] FINANCIAL Advance Directives For more information, please contact: [phone] * Full Code (Latest Code Status on File) Date Activated Date Inactivated Comments 05/27/2021 1:56 PM 06/03/2021 10:45 PM Care Teams Mercerizing Range Feeder Relationship Specialty Start Date End Date Ranjeet Colby MD PCP - General 06/21/19
--- OUTSIDE RECORDS SUMMARY | 2025-02-07 15:33 | XMS_ITS | Encounter Summary ---
Author Organization [facility] Address [facility] [place] [address] Care Team Providers Care [employer] Caretaker Name Role Phone Ranjeet Colby MD Unavailable [phone] Ranjeet Colby MD Primary Care Provider [phone] Reason for Visit * Reason Onset Date Comments Appointment 08/18/2023 Encounter Details Date Type Department Care Team (Late st Contact Info) Description 08/18/2023 Telephone [facility] - Ophthalmology [address] [place] [id number] Kimi Chance MD [address] [place] [address] DEPT [place] [address] Appointment Social History Tobacco Use [...] reschedule today's appointment. Please assist and advise TMAN documented in this encounter Plan of Treatment Upcoming Encounters Date Type Department Care Team (Late st Contact Info) Description 03/20/2025 11:30 AM CDT Procedure visit [facility] - [address] [place] [address] 03/20/2025 12:30 PM CDT Office Visit [facility] - GI [address] [facility] [place] [address] Giovanny Srivastava MD [address] [place] [address] [address] [facility] [place] [address] documented as of this encounter Goals Goal [...] on filedocumented in this encounter Care Teams [employer] Caretaker Relationship Specialty Start Date End Date Ranjeet Colby MD [address] [place] [address] PCP - General 12/09/21 Ranjeet Colby MD [address] [place] [address] Family Medicine 11/26/21 documented as of this encounter
--- OUTSIDE RECORDS SUMMARY | 2025-02-07 15:33 | XMS_ITS | Data Portability ---
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 or Plasm a chloride [moles/volum e] in serum or plasma 100 mmol/ L low: 98mmol /Lhigh : 107mmo l/L Chlor domenico 100 98 - 107 mmol/ L 03/21 12:45 PM CDT [facility] Not Available Not Available 10/21/2024 08:14:55 03/21/20 24 03/21/2024 Compr ehens sylvia metab olic 1999 panel - Serum or Plasm a carbon dioxide, total [moles/volum e] in serum or plasma 28 mmol/ L low: 22mmol /Lhigh : 29mmol /L CO2 28 22 - 29 mmol/ L 03/21 12:45 PM CDT [facility] Not Available Not Available 10/21/2024 08:14:55 03/21/20 24 03/21/2024 Compr ehens sylvia metab olic 1999 panel - Serum or Plasm a glucose [mass/volume ] in serum or plasma 120 mg/dL low: 70mg/d Lhigh: 115mg/ dL high Gluco se 120 (H) 70 - 115 mg/dL 03/21 12:45 PM CDT [facility] Not Available Not Available 10/21/2024 08:14:55 03/21/20 24 03/21/2024 Compr ehens sylvia metab olic 1999 panel - Serum or Plasm a calcium [moles/volum e] in serum or plasma 10.1 mg/dL low: 8.4mg/ dLhigh : 10.2mg /dL Calci um 10.1 8.4 - 10.2 mg/dL 03/21 12:45 PM CDT [facility] Not Available Not Available 10/21/2024 08:14:55 03/21/20 24 03/21/2024 Compr ehens sylvia metab olic 1999 panel - Serum or Plasm a protein [mass/volume ] in serum or plasma 7.5 g/dL low: 6g/dLh igh: 8.3g/d L Prote in Total 7.5 6.0 - 8.3 g/dL 03/21 12:45 PM CDT [facility] Not Available Not Available 10/21/2024 08:14:55 03/21/20 24 03/21/2024 Compr ehens sylvia metab olic 2000 panel - Serum or Plasm a albumin [mass/volume ] in serum or plasma by bromocresol green (bcg) dye binding method 4.1 g/dL low: 3.4g/d Lhigh: 5g/dL Album in 4.1 3.4 - 5.0 g/dL 03/21 12:45 PM CDT [facility] Not Available Not Available 10/21/2024 08:14:55 03/21/20 24 03/21/2024 Compr ehens sylvia metab olic 1999 panel - Serum or Plasm a bilirubin.to chavo [mass/volume ] in serum or plasma 0.4 mg/dL low: 0.2mg/ dLhigh : 1.2mg/ dL Bilir ubin Total 0.4 0.2 - 1.2 mg/dL 03/21 12:45 PM CDT [facility] Not Available Not Available 10/21/2024 08:14:55 03/21/20 24 03/21/2024 Compr ehens sylvia metab olic 2000 panel - Serum or Plasm a alkaline phosphatase [enzymatic activity/vol ume] in serum or plasma 88 U/L low: 40U/Lh igh: 150U/L Alkal ine Phosp hatas e 88 40 - 150 U/L 03/21 12:45 PM CDT [facility] Not Available Not Available 10/21/2024 08:14:55 03/21/20 24 03/21/2024 Compr ehens sylvia metab olic 1999 panel - Serum or Plasm a alanine aminotransfe rase [enzymatic activity/vol ume] in serum or plasma by no addition of P-5'-P 19 U/L low: 5U/Lhi gh: 55U/L ALT 19 5 - 55 U/L 03/21 12:45 PM CDT [facility] Not Available Not Available 10/21/2024 08:14:55 03/21/20 24 03/21/2024 Compr ehens sylvia metab olic 2000 panel - Serum or Plasm a aspartate aminotransfe rase [enzymatic activity/vol ume] in serum or plasma 23 U/L low: 5U/Lhi gh: 34U/L AST 23 5 - 34 U/L 03/21 12:45 PM CDT [facility] Not Available Not Available 10/21/2024 08:14:55 03/21/20 24 03/21/2024 Compr ehens sylvia metab olic 1999 panel - Serum or Plasm a anion gap 8 low: 6high: 16 Anion Gap 8 6 - 16 03/21 12:45 PM CDT [facility] Not Available Not Available 10/21/2024 08:14:55 03/21/20 24 03/21/2024 Compr ehens sylvia metab olic 1999 panel - Serum or Plasm a urea nitrogen/cre atinine [mass ratio] in serum or plasma 18 low: 7high: 23 BUN/C reati nine Ratio 18 7 - 23 03/21 12:45 PM CDT [facility] Not Available Not Available 10/21/2024 08:14:55 03/21/20 24 03/21/2024 Compr ehens sylvia metab olic 2000 panel - Serum or Plasm a osmolality calculated 283 text: 275 - 295 mOsm/k g Osmol ality Calcu lated 283 275 - 295 mOsm/ kg 03/21 12:45 PM CDT [facility] Not Available Not Available 10/21/2024 08:14:55 03/21/20 24 03/21/2024 Compr ehens sylvia metab olic 2000 panel - Serum or Plasm a albumin/glob ulin ratio 1.2 low: 1.1hig h: 2.3 Album in/Gl obuli n Ratio 1.2 1.1 - 2.3 03/21 12:45 PM CDT [facility] Not Available Not Available 10/21/2024 08:14:55 03/21/20 24 03/21/2024 Compr ehens sylvia metab olic 2000 panel - Serum or Plasm a glomerular filtration rate/1.73 sq M.predicted [volume rate/area] in serum, plasma or blood by creatinine-b ased formula (CKD-epi) text: >=90 mL/min /1.73 m2 eGFR by CKD-E PI >90 >=90 mL/mi n/1.7 3 m2 03/21 12:45 PM CDT [facility] Not Available Not Available 10/21/2024 08:14:55 03/21/2003/21/2024 Compr ehens sylvia metab olic 2000 panel - Serum or Plasm a interpretati on and review of laboratory results Abnorm al Not Available Not Available 08:14:55 03/21/2003/21/2024 CBC W Auto Diffe renti al panel - Blood leukocytes [#/volume] in blood by automated count 6.7 text: 4.0 - 10.7 x10e9/ L WBC 6.7 4.0 - 10.7 x10E9 /L 03/21 12:18 PM CDT [facility] Not Available Not Available 10/21/2024 08:14:55 03/21/20 24 03/21/2024 CBC W Auto Diffe renti al panel - Blood erythrocytes [#/volume] in blood by automated count 4.23 text: 3.90 - 5.20 x10e12 /L RBC Count 4.23 3.90 - 5.20 x10E1 2/L 03/21 12:18 PM CDT [facility] Not Available Not Available 10/21/2024 08:14:55 03/21/20 24 03/21/2024 CBC W Auto Diffe renti al panel - Blood hemoglobin [mass/volume ] in blood 13.2 g/dL low: 11.9g/ dLhigh : 15.8g/ dL Hemog lobin 13.2 11.9 - 15.8 g/dL 03/21 12:18 PM [facility]T [facility] Not Available Not Available 10/21/2024 08:14:55 03/21/20 24 03/21/2024 CBC W Auto Diffe renti al panel - Blood hematocrit [volume fraction] of blood by automated count 38.7 % low: 34.8%h igh: 46.1% Hemat ocrit 38.7 34.8 - 46.1 % 03/21 12:18 PM CDT [facility] Not Available Not Available 10/21/2024 08:14:55 03/21/2003/21/2024 CBC W Auto Diffe renti al panel - Blood MCV [entitic volume] by automated count 91.5 fL low: 80fLhi gh: 98fL MCV 91.5 80.0 - 98.0 fL 03/21 12:18 PM [facility]T [facility] Not Available Not Available 10/21/2024 08:14:55 03/21/2003/21/2024 CBC W Auto Diffe renti al panel - Blood MCH [entitic mass] by automated count 31.2 pg low: 26.7pg high: 33.6pg MCH 31.2 26.7 - 33.6 pg 03/21 12:18 PM [facility]T [facility] Not Available Not Available 10/21/2024 08:14:55 03/21/20 24 03/21/2024 CBC W Auto Diffe renti al panel - Blood MCHC [mass/volume ] by automated count 34.1 g/dL low: 31.7g/ dLhigh : 36.3g/ dL MCHC 34.1 31.7 - 36.3 g/dL 03/21 12:18 PM CDT [facility] Not Available Not Available 10/21/2024 08:14:55 03/21/20 24 03/21/2024 CBC W Auto Diffe renti al panel - Blood erythrocyte distribution width [ratio] by automated count 12.8 % low: 11.3%h igh: 14.8% RDW-C V 12.8 11.3 - 14.8 % 03/21 12:18 PM CDT [facility] Not Available Not Available 10/21/2024 08:14:55 03/21/20 24 03/21/2024 CBC W Auto Diffe renti al panel - Blood platelets [#/volume] in blood by automated count 286 text: 150 - 420 x10e9/ L Plate let Count 286 150 - 420 x10E9 /L 03/21 12:18 PM CDT [facility] Not Available Not Available 10/21/2024 08:14:55 03/21/2003/21/2024 CBC W Auto Diffe renti al panel - Blood platelet mean volume [entitic volume] in blood by automated count 10.6 fL low: 7.8fLh igh: 11.4fL MPV 10.6 7.8 - 11.4 fL 03/21 12:18 PM CDT [facility] Not Available Not Available 10/21/2024 08:14:55 03/21/2003/21/2024 CBC W Auto Diffe renti al panel - Blood neutrophils/ 100 leukocytes in blood by automated count 48.9 % low: 41%hig h: 74% Neutr ophil % 48.9 41.0 - 74.0 % 03/21 12:18 PM CDT [facility] Not Available Not Available 10/21/2024 08:14:55 03/21/2003/21/2024 CBC W Auto Diffe renti al panel - Blood lymphocytes/ 100 leukocytes in blood by automated count 37.5 % low: 17%hig h: 47% Lymph ocyte % 37.5 17.0 - 47.0 % 03/21 12:18 PM CDT [facility] Not Available Not Available 10/21/2024 08:14:55 03/21/20 24 03/21/2024 CBC W Auto Diffe renti al panel - Blood monocytes/10 0 leukocytes in blood by automated count 9.7 % low: 3%high : 11% Monoc yte % 9.7 3.0 - 11.0 % 03/21 12:18 PM CDT [facility] Not Available Not Available 10/21/2024 08:14:55 03/21/20 24 03/21/2024 CBC W Auto Diffe renti al panel - Blood eosinophils/ 100 leukocytes in blood by automated count 3.1 % low: 0%high : 7% Eosin ophil % 3.1 0.0 - 7.0 % 03/21 12:18 PM CDT [facility] Not Available Not Available 10/21/2024 08:14:55 03/21/20 24 03/21/2024 CBC W Auto Diffe renti al panel - Blood basophils/10 0 leukocytes in blood by automated count 0.7 % low: 0%high : 1.6% Basop hil % 0.7 0.0 - 1.6 % 03/21 12:18 PM CDT [facility] Not Available Not Available 10/21/2024 08:14:55 03/21/20 24 03/21/2024 CBC W Auto Diffe renti al panel - Blood immature granulocytes /100 leukocytes in blood by automated count 0.1 % low: 0%high : 1% Immat ure Granu locyt es % 0.1 0.0 - 1.0 % 03/21 12:18 PM CDT [facility] Not Available Not Available 10/21/2024 08:14:55 03/21/20 24 03/21/2024 CBC W Auto Diffe renti al panel - Blood neutrophils [#/volume] in blood by automated count 3.26 text: 1.60 - 7.50 x10e9/ L Neutr ophil Absol orutsararmiut 3.26 1.60 - 7.50 x10E9 /L 03/21 12:18 PM CDT [facility] Not Available Not Available 10/21/2024 08:14:55 03/21/20 24 03/21/2024 CBC W Auto Diffe renti al panel - Blood lymphocytes [#/volume] in blood by automated count 2.51 text: 1.00 - 4.40 x10e9/ L Lymph ocyte Absol orutsararmiut 2.51 1.00 - 4.40 x10E9 /L 03/21 12:18 PM CDT [facility] Not Available Not Available 10/21/2024 08:14:55 03/21/2003/21/2024 CBC W Auto Diffe renti al panel - Blood monocytes [#/volume] in blood by automated count 0.65 text: 0.15 - 1.00 x10e9/ L Monoc yte Absol orutsararmiut 0.65 0.15 - 1.00 x10E9 /L 03/21 12:18 PM CDT [facility] Not Available Not Available 10/21/2024 08:14:55 03/21/2003/21/2024 CBC W Auto Diffe renti al panel - Blood eosinophils [#/volume] in blood 0.21 text: 0.00 - 0.60 x10e9/ L Eosin ophil Absol orutsararmiut 0.21 0.00 - 0.60 x10E9 /L 03/21 12:18 PM CDT [facility] Not Available Not Available 10/21/2024 08:14:55 03/21/2003/21/2024 CBC W Auto Diffe renti al panel - Blood basophils [#/volume] in blood by automated count 0.05 text: 0.00 - 0.13 x10e9/ L Basop hil Absol orutsararmiut 0.05 0.00 - 0.13 x10E9 /L 03/21 12:18 PM CDT [facility] Not Available Not Available 10/21/2024 08:14:55 03/21/2003/21/2024 CBC W Auto Diffe renti al panel - Blood interpretati on and review of laboratory results Normal Not Available Not Available 10/02 08:14:55 07/12/202024 LIPID PANEL cholesterol, total 147 mg/dL 100-19 9 Not Available [facility] ([facility]) [address] [place], [address], 07/13/2024 14:07:20 07/12/20 24 07/13/2024 LIPID PANEL triglyceride s 217 mg/dL 0-149 above high normal Not Available [facility] ([facility]) [address] [place], [address], 07/13/2024 14:07:20 07/12/20 24 07/13/2024 LIPID PANEL HDL cholesterol 45 mg/dL >39 Not Available [facility] ([facility]) [address] [place], [address], 07/13/2024 14:07:20 07/12/20 24 07/13/2024 LIPID PANEL VLDL cholesterol billy 35 mg/dL 5-40 Not Available [facility] ([facility]) [address] [place], [address], 07/13/2024 14:07:20 07/12/20 24 07/13/2024 LIPID PANEL LDL chol calc ([facility]) 67 mg/dL 0-99 Not Available [facility] ([facility]) [address] [place], [address], 07/13/2024 14:07:20 07/12/20 24 07/13/2024 T4, FREE T4,free(dire ct) 1.20 NG/dL 0.82-1 .77 Not Available [facility] ([facility]) [address] [place], [address], 07/13/2024 14:07:21 07/12/20 24 07/13/2024 COMP. METAB OLIC PANEL (14) glucose 103 mg/dL 70-99 above high normal Not Available [facility] ([facility]) [address] [place], [address], 07/13/2024 14:07:22 07/12/20 24 07/13/2024 COMP. METAB OLIC PANEL (14) BUN 11 mg/dL 8-27 Not Available [facility] ([facility]) [address] [facility] [place], [address], 07/13/2024 14:07:22 07/12/20 24 07/13/2024 COMP. METAB OLIC PANEL (14) creatinine 0.67 mg/dL 0.57-1 .00 Not Available [facility] ([facility]) [address] [facility], [place], [address], 07/13/2024 14:07:22 07/12/20 24 07/13/2024 COMP. METAB OLIC PANEL (14) eGFR 94 mL/mi n/1.7 3 >59 Not Available [facility] ([facility]) [address] [facility], [place], [address], 07/13/2024 14:07:22 07/12/20 24 07/13/2024 COMP. METAB OLIC PANEL (14) BUN/creatini ne ratio 16 12-28 Not Available [facility] ([facility]) [address] [facility], [place], [address], 07/13/2024 14:07:22 07/12/20 24 07/13/2024 COMP. METAB OLIC PANEL (14) sodium 136 mmol/ L 134-14 4 Not Available [facility] ([facility]) [address] [facility], [place], [address], 07/13/2024 14:07:22 07/12/20 24 07/13/2024 COMP. METAB OLIC PANEL (14) potassium 4.2 mmol/ L 3.5-5. 2 Not Available [facility] ([facility]) [address] [facility], [place], [address], 07/13/2024 14:07:22 07/12/20 24 07/13/2024 COMP. METAB OLIC PANEL (14) chloride 95 mmol/ L 96-106 below low normal Not Available [facility] ([facility]) [address] [facility] [place], [address], 07/13/2024 14:07:22 07/12/20 24 07/13/2024 COMP. METAB OLIC PANEL (14) carbon dioxide, total 24 mmol/ L 20-29 Not Available [facility] ([facility] [address] [facility] [place], [address], 07/13/2024 14:07:22 07/12/20 24 07/13/2024 COMP. METAB OLIC PANEL (14) calcium 10.0 mg/dL 8.7-10 .3 Not Available [facility] ([facility] [address] [facility] [place], [address], 07/13/2024 14:07:22 07/12/20 24 07/13/2024 COMP. METAB OLIC PANEL (14) protein, total 7.3 g/dL 6.0-8. 5 Not Available [facility] ([facility]) [address] [facility] [place], [address], 07/13/2024 14:07:22 07/12/20 24 07/13/2024 COMP. METAB OLIC PANEL (14) albumin 4.7 g/dL 3.9-4. 9 Not Available [facility] ([facility]) [address] [facility] [place], [address], 07/13/2024 14:07:22 07/12/20 24 07/13/2024 COMP. METAB OLIC PANEL (14) globulin, total 2.6 g/dL 1.5-4. 5 Not Available [facility] ([facility]) [address] [facility] [place], [address], 07/13/2024 14:07:22 07/12/20 24 07/13/2024 COMP. METAB OLIC PANEL (14) bilirubin, total 0.4 mg/dL 0.0-1. 2 Not Available [facility] ([facility]) [address] [facility], [place], [address], 07/13/2024 14:07:22 07/12/20 24 07/13/2024 COMP. METAB OLIC PANEL (14) alkaline phosphatase 114 IU/L 44-121 Not Available [facility] ([facility]) [address] [facility], [place], [address], 07/13/2024 14:07:22 07/12/20 24 07/13/2024 COMP. METAB OLIC PANEL (14) AST (SGOT) 35 IU/L 0-40 Not Available [facility] ([facility]) [address] [facility], [place], [address], 07/13/2024 14:07:22 07/12/20 24 07/13/2024 COMP. METAB OLIC PANEL (14) ALT (SGPT) 23 IU/L 0-32 Not Available [facility] ([facility]) [address] [facility] [place], [address], 07/13/2024 14:07:22 07/12/20 24 07/13/2024 TSH TSH 1.090 uIU/m L 0.450- 4.500 Not Available [facility] ([facility]) [address] [place], [address], 07/13/2024 14:07:23 07/12/20 24 07/13/2024 CBC WITH DIFFE RENTI AL/PL ATELE T WBC 6.7 x10e3 /uL 3.4-10 .8 Not Available [facility] ([facility]) [address] [place], [address], 07/13/2024 14:07:24 07/12/20 24 07/13/2024 CBC WITH DIFFE RENTI AL/PL ATELE T RBC 4.23 x10e6 /uL 3.77-5 .28 Not Available [facility] ([facility] [address] [place], [address], 07/13/2024 14:07:24 07/12/20 24 07/13/2024 CBC WITH DIFFE RENTI AL/PL ATELE T hemoglobin 13.3 g/dL 11.1-1 5.9 Not Available [facility] ([facility]) [address] [place], [address], 07/13/2024 14:07:24 07/12/20 24 07/13/2024 CBC WITH DIFFE RENTI AL/PL ATELE T hematocrit 40.8 % 34.0-4 6.6 Not Available [facility] ([facility]) [address] [place], [address], 07/13/2024 14:07:24 07/12/20 24 07/13/2024 CBC WITH DIFFE RENTI AL/PL ATELE T MCV 97 fL 79-97 Not Available [facility] ([facility]) [address] [place], [address], 07/13/2024 14:07:24 07/12/20 24 07/13/2024 CBC WITH DIFFE RENTI AL/PL ATELE T MCH 31.4 pg 26.6-3 3.0 Not Available [facility] ([facility]) [address] [place], [address], 07/13/2024 14:07:24 07/12/20 24 07/13/2024 CBC WITH DIFFE RENTI AL/PL ATELE T MCHC 32.6 g/dL 31.5-3 5.7 Not Available [facility] ([facility]) [address] [place], [address], 07/13/2024 14:07:24 07/12/20 24 07/13/2024 CBC WITH DIFFE RENTI AL/PL ATELE T RDW 12.3 % 11.7-1 5.4 Not Available [facility] ([facility]) [address] [place], [address], 07/13/2024 14:07:24 07/12/20 24 07/13/2024 CBC WITH DIFFE RENTI AL/PL ATELE T platelets 293 x10e3 /uL 150-45 0 Not Available [facility] ([facility]) [address] [facility], [place], [address], 07/13/2024 14:07:24 07/12/20 24 07/13/2024 CBC WITH DIFFE RENTI AL/PL ATELE T neutrophils 48 % notest ab. Not Available [facility] ([facility]) [address] [facility], [place], [address], 07/13/2024 14:07:24 07/12/20 24 07/13/2024 CBC WITH DIFFE RENTI AL/PL ATELE T lymphs 40 % notest ab. Not Available [facility] ([facility]) [address] [facility], [place], [address], 07/13/2024 14:07:24 07/12/20 24 07/13/2024 CBC WITH DIFFE RENTI AL/PL ATELE T monocytes 8 % notest ab. Not Available [facility] ([facility]) [address] [facility] [place], [address], 07/13/2024 14:07:24 07/12/20 24 07/13/2024 CBC WITH DIFFE RENTI AL/PL ATELE T eos 3 % notest ab. Not Available [facility] ([facility]) [address] [facility] [place], [address], 07/13/2024 14:07:24 07/12/20 24 07/13/2024 CBC WITH DIFFE RENTI AL/PL ATELE T basos 1 % notest ab. Not Available [facility] ([facility]) [address] [facility] [place], [address], 07/13/2024 14:07:24 07/12/20 24 07/13/2024 CBC WITH DIFFE RENTI AL/PL ATELE T neutrophils (absolute) 3.2 x10e3 /uL 1.4-7. 0 Not Available [facility] ([facility]) [address] [facility], [place], [address], 07/13/2024 14:07:24 07/12/20 24 07/13/2024 CBC WITH DIFFE RENTI AL/PL ATELE T lymphs (absolute) 2.6 x10e3 /uL 0.7-3. 1 Not Available [facility] ([facility]) [address] [facility], [place], [address], 07/13/2024 14:07:24 07/12/20 24 07/13/2024 CBC WITH DIFFE RENTI AL/PL ATELE T monocytes(ab solute) 0.5 x10e3 /uL 0.1-0. 9 Not Available [facility] ([facility]) [address] [facility], [place], [address], 07/13/2024 14:07:24 07/12/20 24 07/13/2024 CBC WITH DIFFE RENTI AL/PL ATELE T eos (absolute) 0.2 x10e3 /uL 0.0-0. 4 Not Available [facility] ([facility]) [address] [place], [address], 07/13/2024 14:07:24 07/12/20 24 07/13/2024 CBC WITH DIFFE RENTI AL/PL ATELE T baso (absolute) 0.1 x10e3 /uL 0.0-0. 2 Not Available [facility] ([facility]) [address] [place], [address], 07/13/2024 14:07:24 07/12/20 24 07/13/2024 CBC WITH DIFFE RENTI AL/PL ATELE T immature granulocytes 0 % notest ab. Not Available [facility] ([facility]) [address] [place], [address], 07/13/2024 14:07:24 07/12/20 24 07/13/2024 CBC WITH DIFFE RENTI AL/PL ATELE T immature grans (abs) 0.0 x10e3 /uL 0.0-0. 1 Not Available [facility] ([facility]) [address] [facility], [place], [address], 07/13/2024 14:07:24 07/12/20 24 07/13/2024 TRIIO DOTHY TIBURCIO E (T3), FREE triiodothyro nine (T3), free 2.9 pg/mL 2.0-4. 4 Not Available [facility] ([facility]) [address] [place], [address], 07/13/2024 14:07:26 11/09/19 25 11/09/2024 LIPID PANEL cholesterol, total 129 mg/dL 100-19 9 Not Available [facility] ([facility]) [address] [place], [address], 11/09/2024 13:22:43 11/09/19 25 11/09/2024 LIPID PANEL triglyceride s 164 mg/dL 0-149 above high normal Not Available [facility] ([facility]) [address] [place], [address], 11/09/2024 13:22:43 11/09/19 25 11/09/2024 LIPID PANEL HDL cholesterol 41 mg/dL >39 Not Available [facility] ([facility]) [address] [place], [address], 11/09/2024 13:22:43 11/09/19 25 11/09/2024 LIPID PANEL VLDL cholesterol billy 28 mg/dL 5-40 Not Available [facility] ([facility]) [address] [place], [address], 11/09/2024 13:22:43 11/09/19 25 11/09/2024 LIPID PANEL LDL chol calc ([facility]) 60 mg/dL 0-99 Not Available [facility] ([facility]) [address] [place], [address], 11/09/2024 13:22:43 11/09/19 25 11/09/2024 T4, FREE T4,free(dire ct) 1.17 NG/dL 0.82-1 .77 Not Available [facility] ([facility]) [address] [place], [address], 11/09/2024 13:22:45 11/09/19 25 11/09/2024 COMP. METAB OLIC PANEL (14) glucose 101 mg/dL 70-99 above high normal Not Available [facility] ([facility]) [address] [facility], [place], [address], 11/09/2024 13:22:46 11/09/19 25 11/09/2024 COMP. METAB OLIC PANEL (14) BUN 7 mg/dL 8-27 below low normal Not Available [facility] ([facility]) [address] [place], [address], 11/09/2024 13:22:46 11/09/19 25 11/09/2024 COMP. METAB OLIC PANEL (14) creatinine 0.57 mg/dL 0.57-1 .00 Not Available [facility] ([facility]) [address] [place], [address], 11/09/2024 13:22:46 11/09/19 25 11/09/2024 COMP. METAB OLIC PANEL (14) eGFR 98 mL/mi n/1.7 3 >59 Not Available [facility] ([facility]) [address] [place], [address], 11/09/2024 13:22:46 11/09/19 25 11/09/2024 COMP. METAB OLIC PANEL (14) BUN/creatini ne ratio 12 12-28 Not Available [facility] ([facility]) [address] [place], [address], 11/09/2024 13:22:46 11/09/19 25 11/09/2024 COMP. METAB OLIC PANEL (14) sodium 130 mmol/ L 134-14 4 below low normal Not Available [facility] ([facility]) [address] [place], [address], 11/09/2024 13:22:46 11/09/19 25 11/09/2024 COMP. METAB OLIC PANEL (14) potassium 4.3 mmol/ L 3.5-5. 2 Not Available [facility] ([facility]) [address] [place], [address], 11/09/2024 13:22:46 11/09/19 25 11/09/2024 COMP. METAB OLIC PANEL (14) chloride 92 mmol/ L 96-106 below low normal Not Available [facility] ([facility]) [address] [facility] [place], [address], 11/09/2024 13:22:46 11/09/19 25 11/09/2024 COMP. METAB OLIC PANEL (14) carbon dioxide, total 23 mmol/ L 20-29 Not Available [facility] ([facility]) [address] [facility] [place], [address], 11/09/2024 13:22:46 11/09/19 25 11/09/2024 COMP. METAB OLIC PANEL (14) calcium 9.3 mg/dL 8.7-10 .3 Not Available [facility] ([facility]) [address] [facility] [place], [address], 11/09/2024 13:22:46 11/09/19 25 11/09/2024 COMP. METAB OLIC PANEL (14) protein, total 6.2 g/dL 6.0-8. 5 Not Available [facility] ([facility]) [address] [facility] [place], [address], 11/09/2024 13:22:46 11/09/19 25 11/09/2024 COMP. METAB OLIC PANEL (14) albumin 4.0 g/dL 3.9-4. 9 Not Available [facility] ([facility]) [address] [facility], [place], [address], 11/09/2024 13:22:46 11/09/19 25 11/09/2024 COMP. METAB OLIC PANEL (14) globulin, total 2.2 g/dL 1.5-4. 5 Not Available [facility] ([facility]) [address] [facility], [place], [address], 11/09/2024 13:22:46 11/09/19 25 11/09/2024 COMP. METAB OLIC PANEL (14) bilirubin, total 0.5 mg/dL 0.0-1. 2 Not Available [facility] ([facility]) [address] [facility], [place], [address], 11/09/2024 13:22:46 11/09/19 25 11/09/2024 COMP. METAB OLIC PANEL (14) alkaline phosphatase 93 IU/L 44-121 Not Available [facility] ([facility]) [address] [facility], [place], [address], 11/09/2024 13:22:46 11/09/19 25 11/09/2024 COMP. METAB OLIC PANEL (14) AST (SGOT) 20 IU/L 0-40 Not Available [facility] ([facility]) [address] [facility], [place], [address], 11/09/2024 13:22:46 11/09/19 25 11/09/2024 COMP. METAB OLIC PANEL (14) ALT (SGPT) 15 IU/L 0-32 Not Available [facility] ([facility]) [address] [facility], [place], [address], 11/09/2024 13:22:46 11/09/19 25 11/09/2024 TSH TSH 0.788 uIU/m L 0.450- 4.500 Not Available [facility] ([facility]) [address] [place], [address], 11/09/2024 13:22:47 11/09/19 25 11/09/2024 CBC WITH DIFFE RENTI AL/PL ATELE T WBC 6.1 x10e3 /uL 3.4-10 .8 Not Available [facility] ([facility]) [address] [place], [address], 11/09/2024 13:22:49 11/09/1911/09/2024 CBC WITH DIFFE RENTI AL/PL ATELE T RBC 3.68 x10e6 /uL 3.77-5 .28 below low normal Not Available [facility] ([facility]) [address] [place], [address], 11/09/2024 13:22:49 11/09/19 25 11/09/2024 CBC WITH DIFFE RENTI AL/PL ATELE T hemoglobin 11.7 g/dL 11.1-1 5.9 Not Available [facility] ([facility]) [address] [place], [address], 11/09/2024 13:22:49 11/09/1911/09/2024 CBC WITH DIFFE RENTI AL/PL ATELE T hematocrit 34.4 % 34.0-4 6.6 Not Available [facility] ([facility]) [address] [place], [address], 11/09/2024 13:22:49 11/09/1911/09/2024 CBC WITH DIFFE RENTI AL/PL ATELE T MCV 94 fL 79-97 Not Available [facility] ([facility]) [address] [place], [address], 11/09/2024 13:22:49 11/09/19 25 11/09/2024 CBC WITH DIFFE RENTI AL/PL ATELE T MCH 31.8 pg 26.6-3 3.0 Not Available [facility] ([facility]) [address] [facility], [place], [address], 11/09/2024 13:22:49 11/09/19 25 11/09/2024 CBC WITH DIFFE RENTI AL/PL ATELE T MCHC 34.0 g/dL 31.5-3 5.7 Not Available [facility] ([facility]) [address] [facility], [place], [address], 11/09/2024 13:22:49 11/09/19 25 11/09/2024 CBC WITH DIFFE RENTI AL/PL ATELE T RDW 13.1 % 11.7-1 5.4 Not Available [facility] ([facility]) [address] [facility], [place], [address], 11/09/2024 13:22:49 11/09/19 25 11/09/2024 CBC WITH DIFFE RENTI AL/PL ATELE T platelets 252 x10e3 /uL 150-45 0 Not Available [facility] ([facility]) [address] [facility], [place], [address], 11/09/2024 13:22:49 11/09/19 25 11/09/2024 CBC WITH DIFFE RENTI AL/PL ATELE T neutrophils 45 % notest ab. Not Available [facility] ([facility]) [address] [facility], [place], [address], 11/09/2024 13:22:49 11/09/19 25 11/09/2024 CBC WITH DIFFE RENTI AL/PL ATELE T lymphs 44 % notest ab. Not Available [facility] ([facility]) [address] [facility], [place], [address], 11/09/2024 13:22:49 11/09/19 25 11/09/2024 CBC WITH DIFFE RENTI AL/PL ATELE T monocytes 7 % notest ab. Not Available [facility] ([facility]) [address] [facility], [place], [address], 11/09/2024 13:22:49 11/09/19 25 11/09/2024 CBC WITH DIFFE RENTI AL/PL ATELE T eos 3 % notest ab. Not Available [facility] ([facility]) [address] [facility], [place], [address], 11/09/2024 13:22:49 11/09/19 25 11/09/2024 CBC WITH DIFFE RENTI AL/PL ATELE T basos 1 % notest ab. Not Available [facility] ([facility]) [address] [facility], [place], [address], 11/09/2024 13:22:49 11/09/19 25 11/09/2024 CBC WITH DIFFE RENTI AL/PL ATELE T neutrophils (absolute) 2.8 x10e3 /uL 1.4-7. 0 Not Available [facility] ([facility]) [address] [facility], [place], [address], 11/09/2024 13:22:49 11/09/19 25 11/09/2024 CBC WITH DIFFE RENTI AL/PL ATELE T lymphs (absolute) 2.7 x10e3 /uL 0.7-3. 1 Not Available [facility] ([facility]) [address] [facility], [place], [address], 11/09/2024 13:22:49 11/09/19 25 11/09/2024 CBC WITH DIFFE RENTI AL/PL ATELE T monocytes(ab solute) 0.4 x10e3 /uL 0.1-0. 9 Not Available [facility] ([facility]) [address] [facility], [place], [address], 11/09/2024 13:22:49 11/09/19 25 11/09/2024 CBC WITH DIFFE RENTI AL/PL ATELE T eos (absolute) 0.2 x10e3 /uL 0.0-0. 4 Not Available [facility] ([facility]) [address] [place], [address], 11/09/2024 13:22:49 11/09/19 25 11/09/2024 CBC WITH DIFFE RENTI AL/PL ATELE T baso (absolute) 0.0 x10e3 /uL 0.0-0. 2 Not Available [facility] ([facility]) [address] [place], [address], 11/09/2024 13:22:49 11/09/19 25 11/09/2024 CBC WITH DIFFE RENTI AL/PL ATELE T immature granulocytes 0 % notest ab. Not Available [facility] ([facility]) [address] [place], [address], 11/09/2024 13:22:49 11/09/19 25 11/09/2024 CBC WITH DIFFE RENTI AL/PL ATELE T immature grans (abs) 0.0 x10e3 /uL 0.0-0. 1 Not Available [facility] ([facility]) [address] [place], [address], 11/09/2024 13:22:49 11/09/19 25 11/09/2024 TRIIO DOTHY TIBURCIO E (T3), FREE triiodothyro nine (T3), free 2.7 pg/mL 2.0-4. 4 Not Available [facility] ([facility]) [address] [place], [address], 11/09/2024 13:22:50 11/23/19 25 11/23/2024 C DIFFI CILE TOXIN S A+B, EIA C difficile toxins A+B, EIA NEGATI VE negati ve Not Available [facility] ([facility]) [address] [place], [address], 11/23/2024 17:15:45 11/23/19 25 11/25/2024 OVA + CLAUDY ITE EXAM ova + parasite exam FINAL REPORT These resul ts were obtai laurent using wet prepa ratio n(s) and trich rosemarie stain ed smear . This test does not inclu de testi ng for Crypt ospor idium parvu m, Cyclo spora , or Micro spori nitza. Not Available [facility] ([facility]) [address] [place], [address], 11/25/2024 17:21:52 11/23/19 25 11/25/2024 OVA + CLAUDY ITE EXAM result 1 COMMEN T No ova, cysts , or claudy ites seen. One negat sylvia speci men does not rule out the possi bilit y of a claudy itic infec tion. Not Available [facility] ([facility]) [address] [place], [address], 11/25/2024 17:21:52 11/23/19 25 11/24/2024 STOOL CULTU RE salmonella/s higella screen FINAL REPORT Not Available [facility] ([facility]) [address] [place], [address], 11/26/2024 17:13:55 11/23/19 25 11/24/2024 STOOL CULTU RE E coli shiga toxin EIA NEGATI VE negati ve Not Available [facility] ([facility]) [address] [place], [address], 11/26/2024 17:13:55 11/23/19 25 11/24/2024 STOOL CULTU RE result 1 COMMEN T No Salmo shani or Shige lla recov ered. Not Available [facility] ([facility]) [address] [place], [address], 11/26/2024 17:13:55 11/23/19 25 11/26/2024 STOOL CULTU RE campylobacte r culture FINAL REPORT Not Available [facility] ([facility]) [address] [facility], [place], [address], 11/26/2024 17:13:55 11/23/19 25 11/26/2024 STOOL CULTU RE result 1 COMMEN T No Campy lobac ter speci es isola marsha. Not Available [facility] ([facility]) [address] [facility], [place], [address], 11/26/2024 17:13:55 12/08/19 24 04/13/2023 MAMMO , scree richard, digit al, bilat eral No observ ation record ed. [address], [address], 12/08/2023 12:16:34 11/26/19 25 11/25/2024 XR, kidne y + urete r + bladd er No observ ation record ed. [facility] [address], [place], [address], 12/02/2024 09:12:32 Result Notes None recorded. Problems Name Problem SNOMED Code Status Onset Date Resolution Date Notes Provider Name and Address Organization Details Recorded Time Essential hypertension 53195793 Active 2023 Stefan Colby MD Attn: Iman cunha,[address] [facility], [place], [address], [facility] - [facility] 4 16:22:23 Hyperlipidemia 24715623 Active 2023 Stefan Colby MD Attn: Iman cunha,[address] [facility], [place], [address], [place] - [facility] 4 16:22:24 Hypothyroidism 75350391 Active 2023 Stefan Colby MD Attn: Iman cunha,[address] [facility], [place], [address], [facility] - [facility] 4 16:22:25 Coronary atherosclerosi s 279903223 Active 2023 Stefan Colby MD Attn: Iman cunha,[address] [facility], [place], [address], [place] - [facility] 4 16:22:26 Gastroesophage al reflux disease without esophagitis 515013479 Active 2023 Stefan Colby MD Attn: Iman cunha,[address] [facility], [place], [address], [place] - [facility] 4 16:22:29 Insomnia 257892372 Active 2023 Stefan Colby MD Attn: Iman cunah,[address] [facility], [place], [address], [place] - [facility] 4 16:22:30 Problem Notes None recorded. Procedures Surgical History Date Name Laterality Status Provider Name and Address Organization Details Recorded Time Back Surgery completed Laisha Alas [place] - [facility] 11/03/2023 15:54:22 Knee Surgery completed Laisha Alas MA [facility] 11/03/2023 15:54:28 Tonsillectomy completed Laisha Alas [place] [facility] 11/03/2023 15:54:36 Total hysterectomy completed Trini Alas [place] - [facility] 11/03/2023 15:54:46 Imaging Results None recorded. Procedure Notes None recorded. Medical Equipment None Reported. Allergies Allergen ID Allergen Name Allergen Category Reaction Reaction Severity Criticality Documentation Date Start Date Code Code System Note Provider Name and Address Organization Details Recorded Time 787565 Crestor medicatio n other Not available Not available 11/08/2024 00852 4 RxNorm RENEE [place], [place] - [facility] 5 12:26:56 340650 acetamino phen / hydrocodo ne medicatio n nausea Not available Not available 11/08/2024 86152 2 RxNorm RENEE [place], [place] - [facility] 5 12:27:01 085471 Lyrica medicatio n other Not available Not available 11/08/2024 02747 1 RxNorm RENEE [place], [place] - [facility] 5 12:27:04 494191 pregabali n medicatio n Not available Not available low 11/08/20242013 68629 2 RxNorm Gaini ng too much weigh t. unrec ogniz ed react ion (text : Other , code: 14410 07) (from [facility]) RENEE [place], [place] - [facility] 5 12:27:06 494406 propoxyph mauro hydrochlo ride Not available nausea Not available Not available 11/08/2024 26086 RxNorm RENEE [place], [place] - [facility] 5 12:27:08 156769 rosuvasta tin medicatio n Not available Not available low 11/08/20242012 62442 2 RxNorm Hair loss unrec ogniz ed react ion (text : Other , code: 16583 07) (from [facility]) RENEE [place], [place] - [facility] 5 12:27:12 100488 Zoloft medicatio n Not available Not available Not available 11/08/2024 44985 RxNorm RENEE [place], [place] - [facility] 5 12:27:14 Medications Name Sig Start Date Stop Date Status Note LastModified by Organization Details LastModified Time amoxicill in 500 mg capsule 11/02 completed Not Available Not Available Not Available atorvasta tin 40 mg tablet TAKE ONE TABLET BY MOUTH EVERY DAY active one tablet Thu-Thu- Thu see pt case 01/18/25 Not Available Not Available Not Available gabapenti n 600 mg tablet TAKE [...] blood by Pulse oximetry Heart rate Systolic And Diastolic Provider Name and Address Organization Details Last Updated DateTime 4 94503.4 5 g 29.5 kg/m2 152.4 cm 96 % 96 % 66 /min 116/69 mm[Hg] Laisha Alas MA [facility] 4 16:04:42 Date Recorded Body height Body mass index (BMI) Body weight Oxygen saturation Oxygen saturation in Arterial blood by Pulse oximetry Heart rate Systolic And Diastolic Provider Name and Address Organization Details Last Updated DateTime 5 152.4 cm 29.7 kg/m2 19099.0 4 g 97 % 97 % 72 /min 118/70 mm[Hg] Grace Martin MA [facility] 5 12:26:52 Date Recorded Body height Body mass index (BMI) Body weight Heart rate Oxygen saturation Oxygen saturation in Arterial blood by Pulse oximetry Systolic And Diastolic Provider Name and Address Organization Details Last Updated DateTime 4 152.4 cm 30.2 kg/m2 17200.0 2 g 69 /min 97 % 97 % 132/70 mm[Hg] Yvonne Johnson MA [facility] 4 15:22:11 Date Recorded Body height Body mass index (BMI) Body weight Heart rate Oxygen saturation Oxygen saturation in Arterial blood by Pulse oximetry Systolic And Diastolic Provider Name and Address Organization Details Last Updated DateTime 4 152.4 cm 29.7 kg/m2 05343.0 4 g 67 /min 96 % 96 % 110/68 mm[Hg] Grace Martin MA [facility] 4 12:12:29 Social History Question Answer Notes LastModified by Organizat ion Details LastModified Time Tobacco Smoking Status Former Smoker Laisha Alas MA [facility] 11/03/2023 15:51:48 Are You Blind Or Do You Have Difficulty Seeing? No Information n ot available 11/03/2023 In The 14 Days Before Symptom Onset, Have You Had Close Contact With A Laboratory-confirm ed COVID-19 While That Case Was Ill? No Information n ot available 03/08/2024 In The 14 Days Before [...] Of Diet Are You Following? REGULAR Information n ot available 11/03/2023 Are There Any Guns Present In Your Home? No Information not available 03/08/2024 What Was The Date Of Your Most Recent Tobacco Screening? 11/08/2024 [email or web address] Information not available 11/08/2024 What Is Your Current Pack Years? 10-19packyea rs Information not available 11/03/2023 What Is Your [...] PPD Information not available 11/03/2023 Do You Use Sunscreen Routinely? Yes Information not available 03/08/2024 Has Tobacco Cessation Counseling Been Provided? No Information not available 11/03/2023 Sex: Female Functional Status Question Answer Note LastModified by Organizat ion Details LastModified Time Do you use any illicit or recreational drugs? No Information not available 11/03/2023 Do you or have you ever used any other forms of tobacco or nicotine? No Information not available 11/03/2023 What is your level of alcohol consumption? Occasional Information not available 11/03/2023 Are you currently employed? No Information not available 03/08/2024 Are you able to care for yourself? Yes Information n ot available 11/03/2023 What is your exercise level? None Information not available 11/03/2023 Mental Status Question Answer Note LastModified by Organization D etails LastModified Time Do you feel stressed (tense, restless, nervous, or anxious, or unable to sleep at night)? [id number] Information not available 11/03/2023 Family History Relationship Description Onset Age of [...] Response Coronary Artery Disease N Other N Atrial Fibrillation N High Blood Pressure Y Kidney or Bladder Problems N Thyroid Problems Y GI Problems N Depression N COPD N Blood Clots N Skin Problems N Anemia N Heart Attack (CT) Y Anxiety Disorder N Diabetes N Muscle, [...] Time Influenza, high-dose, quadrivalent, PF 2 completed RENEE [place], [place] [facility] 07/12/2024 12:57:34 Influenza, high-dose, quadrivalent, PF 1 completed Elenita Cook [place] null, [place] [facility] 07/12/2024 12:57:34 Influenza, high-dose, quadrivalent, PF 0 completed Elenita Cook [place] [facility] 07/12/2024 12:57:34 COVID-19, mRNA, LNP-S, PF, 30 mcg/0.3 mL dose 2 completed RENEE [place] [facility] 07/12/2024 12:57:34 COVID-19, mRNA, LNP-S, PF, 30 mcg/0.3 mL dose 1 completed [place]EE [place] [facility] 07/12/2024 12:57:34 COVID-19, mRNA, LNP-S, PF, 30 mcg/0.3 mL dose 1 completed [place]EE [place] [facility] 07/12/2024 12:57:34 Pneumococcal conjugate PCV20, polysaccharide PBI124 conjugate, adjuvant, PF 3 completed RENEE Antonio, [...] completed Stefan Colby MD Attn: Accounting,[address] [place], [address], [place] [facility] 07/13/2024 22:24:27 Past Encounters Encounter ID Performer Location Encounter Start Date Encounter Closed Date Diagnosis/Indication Diagnosis SNOMED-CT Code Diagnosis ICD10 Code Diagnosis Note [id number] Stefan Colby MD [facility] (Adult Med) [address] [place] [address] 11/03/2023 15:24:22 11/03/2023 16:38:34 Essential hypertension 91266290 I10 Hyperlipidemia 64232613 E78.5 Hypothyroidism 32300514 E03.9 Coronary atherosclerosis 823663827 I25.10 Gastroesop hageal reflux disease without esophagitis 509178237 K21.9 Insomnia 945662964 G47.0 0 Biliary cirrhosis 469613 6 K74.5 Anxiety 54121439 F41.9 [id number] Stefan Colby MD [facility] (Adult Med) [address] [place] [phone] 03/08/2024 14:41:33 03/08/2024 16:23:58 Overweight 274783498 E66.3 Essential hypertension 82478515 I10 Hypothyroidism 83464704 E03.9 Pain of ri ght knee joint 9644267834 57060 M25.561 Coronary atherosclerosis 736693524 I25.10 Hyperlipidemia 62808095 E78.5 Gastroesop hageal reflux disease without esophagitis 924854493 K21.9 Insomnia 066427602 G47.0 0 [id number] Stefan Colby MD [facility] (Adult Med) [address] [place] [phone] 07/12/2024 12:02:38 07/12/2024 14:41:44 Body mass index 25-29 - overweight 933976273 Z68.29 Overweight 266664186 E66 .3 Essential hypertension 14553033 I10 Administra tion of influenza vaccine 43035310 Z23 Gastroesop hageal reflux disease without esophagitis 489323112 K21.9 Hyperlipidemia 74484418 E78.5 Hypothyroidism 87126249 E03.9 Insomnia 136454659 G47.0 0 [id number] Stefan Colby MD [facility] ([facility]ult Med) [address] [place] [phone] 11/08/2024 12:05:51 11/08/2024 12:58:41 Body mass index 25-29 - overweight 642838618 Z68.29 Overweight 446895606 E66 .3 Essential hypertension 57443267 I10 Hyperlipidemia 91305452 E78.5 Hypothyroidism 18432433 E03.9 Diarrhea 11717670 R19.7 Health Concerns Section Related Observation LastModified by Organization Detai ls LastModified Time None Recorded Concern Status LastModified by Organization Details LastModified Time None Recorded Advance Directives Directive N: pt wants to be resuscitat e Payers Insurance Date Sequence Insurance Name Policy Number Policy Mortensen Covered Member ID Mortensen Member ID Guarantor Name 11/08/2024 [place] Nano Price [id number] Nano Price 11/08/2024 2 [employer]RIVENT INDEPENDENT (MEDICARE SUPPLEMENT) Nano Price [id number] Nano Price 11/08/2024 1 [place] [id number] Nano Price Notes Date Note Type Note Provider Name [...] medications Stefan Colby MD Attn: Accounting[address] [place], [address], [place] [facility] 11/03/2023 21:24:57 03/08/2024 text/html Hypertension no chest [...] medications Stefan Colby MD Attn: Accounting,[address] [facility], [place], [address], [facility] 03/26/2024 17:23:35 07/12/2024 text/html here for follow [...] stool Stefan Colby MD Attn: Accounting,[address] [facility], [place], [address], [facility] 07/13/2024 22:26:30 11/08/2024 text/html Hypertension no chest pain or shortness [...] regimen. No side effects from any medications she has had some watery diarrhea for a week or so without any fever chills or abdominal pain Stefan Colby MD Attn: Accounting,[address] [facility], [place], [address], [facility] - [facility] 12/03/2024 12:53:30 OBGyn Episode No OBEpisode recorded.
--- OUTSIDE RECORDS SUMMARY | 2025-02-07 15:33 | XMS_ITS | Referral Summary ---
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 Active lisinopriL (PRINIVIL,ZESTRI L) 2.5 [...] (05/31/2021): Added automatically from request for surgery [id number] Coronary atherosclerosis 05/28/2021 Closed fracture of proximal end of right fibula 05/27/2021 HTN (hypertension) 05/27/2021 Hypothyroidism 05/27/2021 Hyperlipidemia 05/27/2021 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 05/27/2021 Acute traumatic pain 05/27/2021 Fracture of tibial plateau 05/26/2021 Overview (05/27/2021): Added automatically from request for surgery [id number] Closed fracture of lateral portion of right tibi al plateau 05/26/2021 Overview (05/29/2021): Added automatically from request for surgery [id number] Social History Tobacco Use Types Packs/Day Years [...] on file 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 Gender Identity Not on file Sexual Orientation [...] on file Medical Devices Implanted Type Area Plumbing Instructor Device Identifier Shelf Expiration Date Model / Serial / Lot Allosource [id number] Cubes Graft 15ml Bone Cancellous - [id number] - [id number] Implanted:Qty: 1 on 06/12/2021 by Sara Johnson MD at [facility] Bone Right: Leg Allosource 11/26/2025 [id number] / [id number] / Description:AlloSource ID: [id number] Moctez[employer]Rich[employer]/Orth o [id number] Evos 113x11.5x3.6mm 32.3x1.9mm 8 Hole Low Profile Variable Angle - [id number] Implanted:Qty: 1 on 06/12/2021 by Sara Johnson MD at [facility] Plate Right: Tibia [employer]Rich[employer]/O rtho [id number] / / [employer]/Orth o [id number] Evos 3.5mm 70mm Self Tap Lock Screw Bone Sterile - [id number] Implanted:Qty: 3 on 06/12/2021 by Sara Johnson MD at [facility] Screw Right: Tibia [employer]/O rtho [id number] / / [employer]/Orth o [id number] Evos 3.5mm 65mm Self Tap Lock Screw Bone Sterile - [id number] Implanted:Qty: 1 on 06/12/2021 by Sara Johnson MD at [facility] Screw Right: Tibia [employer]/O rtho [id number] / / [employer]/Orth o [id number] Evos 3.5mm 38mm Self Tap Lock Screw Bone Sterile - [id number] Implanted:Qty: 1 on 06/12/2021 by Sara Johnson MD at [facility] Screw Right: Tibia [employer]Rich[employer]/O rtho [id number] / / [employer]/Orth o [id number] Evos 3.5mm 28mm Self Tap Lock Screw Bone Sterile - [id number] Implanted:Qty: 1 on 06/12/2021 by Sara Johnson MD at [facility] Screw Right: Tibia [employer]/O rtho [id number] / / [employer]/Orth o [id number] Evos 3.5mm 34mm Self Tap Cortex Screw Bone Sterile - [id number] Implanted:Qty: 1 on 06/12/2021 by Sara Johnson MD at [facility] Screw Right: Tibia [employer]/O rtho [id number] / / [employer]/Orth o [id number] - [id number] Implanted:Qty: 1 on 06/12/2021 by Sara Johnson MD at [facility] Screw Right: Tibia [employer]Rich[employer]/O rtho [id number] / / Synthes 294.55sha Pin 5mm 170mm Half Stainless Steel Hydroxyapatite Troc Blnt - [id number] Implanted:Qty: 4 on 05/27/2021 by Arthur Wiseman MD at [facility] Right: Leg Synthes I 294.55SHA / / [employer]Rich[employer]/Orth o [id number] Evos 3.5mm 32mm Self Tap Cortex Screw Bone Sterile - [id number] Implanted:Qty: 1 on 05/30/2021 by Sara Johnson MD at [facility] Right: Tibia [employer]Rich[employer]/O rtho [id number] / / [employer]Rich[employer]/Orth o [id number] Evos 3.5mm 30mm Self Tap Lock Screw Bone Sterile - [id number] Implanted:Qty: 1 on 05/30/2021 by Sara Johnson MD at [facility] Right: Tibia [employer]Rich[employer]/O rtho [id number] / / [employer]Rich[employer]/Orth o [id number] Evos 3.5mm 22mm Self Tap Cortex Screw Bone Sterile - [id number] Implanted:Qty: 1 on 05/30/2021 by Sara Johnson MD at [facility] Right: Tibia [employer]Rich[employer]/O rtho [id number] / / [employer]Rich[employer]/Orth o [id number] Evos 3.5mm 26mm Self Tap Lock Screw Bone Sterile - [id number] Implanted:Qty: 1 on 05/30/2021 by Sara Johnson MD at [facility] Right: Tibia [employer]Rich[employer]/O rtho [id number] / / [employer]/Orth o [id number] Evos 3.5mm 36mm Self Tap Lock Screw Bone Sterile - [id number] Implanted:Qty: 1 on 05/30/2021 by Sara Johnson MD at [facility] Right: Tibia [employer]Rich[employer]/O rtho [id number] / / [employer]Rich[employer]/Orth o [id number] Evos 3.5mm 34mm Self Tap Lock Screw Bone Sterile - [id number] Implanted:Qty: 1 on 05/30/2021 by Sara Johnson MD at [facility] Right: Tibia [employer]Rich[employer]/O rtho [id number] / / [employer]Rich[employer]/Orth o [id number] Evos 138mm 10 Hole Tibia Right Proximal Medial Plate Bone Sterile - [id number] Implanted:Qty: 1 on 05/30/2021 by Sara Johnson MD at [facility] Right: Tibia [employer]Rich[employer]/O rtho [id number] / / Explanted Type Area Plumbing Instructor Device Identifier Shelf Expiration Date Model / Serial / Lot [employer]aire [employer] Instruments 1600-9625ns Claudia .062in 9in [employer]car [employer] One End Orthopedic Wire - [id number] Explanted:Qty: 2 on 05/30/2021 at [facility] Right: Tibia [employer] 1600-9625N S / / [employer] 1600-9455ns Claudia .45in 9in 1 [place] Point Orthopedic Wire Fixation - [id number] Explanted:Qty: 1 on 06/12/2021 by Sara Johnson MD at [facility] Right: Tibia [employer] 1600-9455N S / / [employer] 1600-9625ns Claudia .062in 9in [place] [employer] One End Orthopedic Wire - [id number] Explanted:Qty: 2 on 06/12/2021 by Sara Johnson MD at [facility] Right: Tibia [employer] 1600-9625N S / / Synthes 294.786 Schanz 5mm 200mm 80mm Self Drill Mr Conditional Screw External - [id number] Explanted:Qty: 2 on 06/12/2021 by Sara Johnson MD at [facility] Right: Tibia Synthes I 294.786 / / Insurance MEDICARE COMMERCIAL GENERIC MEDICARE COMMERCIAL GENERIC MEDICARE [facility] Address: [address] [address] [place] [address] [facility] FINANCIAL Member Subscriber Plan / Payer (Ef fective 2019-Present) Name:Nano Price Clifford Relation to Subscriber:Self Name:Nano Price Clifford Payer ID:[id number] Group ID:[id number] Type:COMMERCIAL Address: [place] [id number] Advance Directives For more information, please contact: [phone] * Full Code (Latest Code Status on File) Date Activated Date Inactivated Comments 05/27/2021 1:56 PM 06/03/2021 10:45 PM Care Teams Carton Wrapper Relationship Specialty Start Date End Date Ranjeet Colby MD PCP - General 06/21/19
--- OUTSIDE RECORDS SUMMARY | 2025-02-07 15:33 | XMS_ITS | Clinical Summary ---
Author Organization [facility] [employer] Address [address] [place] [address] Care Team Providers Care Racecourse Barrier Attendant Name Role Phone Ranjeet Colby MD Unavailable [phone] Ranjeet Colby MD Primary Care Provider [phone] Source Comments [facility],non-owned Affiliates and Associated Physician Practices is amultiple site organization consisting of ambulatory clinics and hospital sitesin [place], [place], [place] and [place]. This disclosure is being madepursuant to the Care Everywhere program and may not contain all information available regarding this patient. 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 Immunizations Immunization Administration Dates Next Due SocialVest primary monoval ent 12+ yr 0.3mL Purple [...] Description 03/20/2025 11:30 AM CDT Procedure visit [facility] - [address] [facility] [address], [place] [address] 03/20/2025 12:30 PM CDT Office Visit [facility] - GI [address], [place] [address] Giovanny Srivastava MD [address] [place] [address] [place] [address] Health Maintenance Due Date Last Done Comments [...] 11/18/2020, 10/12/2020 DEPRESSION SCREENING 08/03/2024 INFLUENZA VACCINE (#1) 2025 06/09/2019, 2017 SCREENING FOR DIABETES 03/21/2027 4, 04/02/2023, 11/20/2022, Additional history exists BONE DENSITY [...] On track( 024 1:20 PM CDT) Cesar Gregory RN Note: Expected end date: Interventions: Take [...] 7 - 26 mg/dL 03/21/2024 12:45 PM [facility] Creatinine 0.66 0.56 - 0.96 mg/dL 03/21/2024 12:45 PM [facility] Sodium 136 136 - 145 mmol/L 03/21/2024 12:45 PM [facility] Potassium 5.0(H) 3.5 - 4.5 mmol/L 03/21/2024 12:45 PM [facility] Chloride 100 98 - 107 mmol/L 03/21/2024 12:45 PM [facility] CO2 28 22 - 29 mmol/L 03/21/2024 12:45 PM [facility] Glucose 120(H) 70 - 115 mg/dL 03/21/2024 12:45 PM [facility] Calcium 10.1 8.4 - 10.2 mg/dL 03/21/2024 12:45 PM [facility] Protein Total 7.5 6.0 - 8.3 g/dL 03/21/2024 12:45 PM [facility] Albumin 4.1 3.4 - 5.0 g/dL 03/21/2024 12:45 PM [facility] Bilirubin Total 0.4 0.2 - 1.2 mg/dL 03/21/2024 12:45 PM [facility] Alkaline Phosphatase 88 40 - 150 U/L 03/21/2024 12:45 PM [facility] ALT 19 5 - 55 U/L 03/21/2024 12:45 PM [facility] AST 23 5 - 34 U/L 03/21/2024 12:45 PM [facility] Anion Gap 8 6 - 16 03/21/2024 12:45 PM [facility] BUN/Creatinine Ratio 18 7 - 23 03/21/2024 12:45 PM [facility] Osmolality Calculated 283 275 - 295 mOsm/kg 03/21/2024 12:45 PM [facility] Albumin/Globulin Ratio 1.2 1.1 - 2.3 03/21/2024 12:45 PM [facility] eGFR by CKD-EPI >90 >=90 mL/min/1.7 3 m2 03/21/2024 12:45 PM [facility] Blood BLOOD SPECIMEN / Unknown Lab Venipuncture / Unknown 03/21/2024 11:50 AM CDT 03/21/2024 12:08 PM CDT Giovanny Srivastava MD LAB - CHEMISTRY ORDERA BLES Final Result [address] [address], [facility] [phone] * BONE DENSITY AXIAL SKELETON(1OR MORE SITES)[id number] (04/02/2023 10:06 AM CDT) Anatomical Region Laterality [...] below > Dictated by George Abad MD ([place]) 04/02/2023 2:47 PM IKavon DO have personally reviewed and interpreted this [...] below > Dictated by George Abad MD ([place]) 04/02/2023 2:47PM IKavon DO have personally reviewed and interpreted this examination/study. > Interpreting Provider: Kavon Navas DO on 04/02/2023 2:53 PM Giovanny Sanjeev Srivastava MD DEXA ORDERABLES Final Result from Last 3 Months or Most Recently Relevant to Health Maintenance Insurance MEDICARE MEDICARE [facility] FINANCIAL MEDICARE SUPPLEMENT PAYOR GENERIC MEDICARE MEDICARE SUPPLEMENT PAYOR GENERIC MEDICARE MEDICARE MEDICARE SUPPLEMENT PAYOR GENERIC MEDICARE MEDICARE SUPPLEMENT PAYOR [facility]IC [facility] THIRD CONSTITUTION PARTY LIABILITY MEDICARE MEDICARE MEDICARE MEDICARE Member Subscriber Plan / Payer ( fective 2019-Present) Name:Kevin Pricea R Member ID:[id number] Relation to Subscriber:Self Name:KEVIN PRICEA R Subscriber ID:[id number] Payer ID:Not on file Group ID:Not on file Type:Medicare Address: [place] [id number] MEDICARE MEDICARE MEDICARE MEDICARE Member Subscriber Plan / Payer ( fective 2019-Present) Name:AlbertKevina R Member ID:[id number] Relation to Subscriber:Self Name:ALBERTKEVINA R Subscriber ID:[id number] Payer ID:Not on file Group ID:Not on file Type:Medicare Address: [place] [address] MEDICARE MEDICARE MEDICARE MEDICARE Member Subscriber Plan / Payer ( fective 2019-Present) Name:Kevin Pricea R Member ID:[id number] Relation to Subscriber:Self Name:IRINA PRICE R Subscriber ID:[id number] Payer ID:Not on file Group ID:Not on file Type:Medicare Address: [place] [phone] MEDICARE MEDICARE MEDICARE Member [facility]scriber [facility] / [facility] Name:Irina Price R Member ID:[id number] Relation to Subscriber:Self Name:IRINA PRICE R Subscriber ID:[id number] Payer ID:Not on file Group ID:Not on file Type:Medicare Address: [place] [address] MEDICARE MEDICARE MEDICARE Member Subscriber Plan / Payer ([facility]-Present) Name:AlbertKevina R Member ID:[id number] Relation to Subscriber:Self Name:IRINA PRICE R Subscriber ID:[id number] Payer ID:Not on file Group ID:Not on file Type:Medicare Address: [place] [address] MEDICARE Member Subscriber Plan / Payer ([facility]Present) Name:Irina Price R Member ID:[id number] Relation to Subscriber:Self Name:IRINA PRICE R Subscriber ID:[id number] Payer ID:Not on file Group ID:Not on file Type:Medicare Address: [place] [address] MEDICARE MEDICARE Member Subscriber Plan / Payer ([facility]Present) Name:Irina Price R Member ID:[id number] Relation to Subscriber:Self Name:IRINA PRICE R Subscriber ID:[id number] Payer ID:Not on file Group ID:Not on file Type:Medicare Address: [place] [address] MEDICARE MEDICARE MEDICARE MEDICARE MEDICARE Member Subscriber Plan / Payer ([facility]Present) Name:Kevin Pricea R Member ID:[id number] Relation to Subscriber:Self Name:KEVIN PRICEA R Subscriber ID:[id number] Payer ID:Not on file Group ID:Not on file Type:Medicare Address: [place] [address] MEDICARE Member Subscriber Plan / Payer ([facility]Present) Name:AlbertKevina R Member ID:[id number] Relation to Subscriber:Self Name:IRINA PRICE R Subscriber ID:[id number] Payer ID:Not on file Group ID:Not on file Type:Medicare Address: [place] [address] MEDICARE MEDICARE MEDICARE Member Subscriber Plan / Payer ([facility]Present) Name:Irina Price R Member ID:[id number] Relation to Subscriber:Self Name:IRINA PRICE R Subscriber ID:[id number] Payer ID:Not on file Group ID:Not on file Type:Medicare Address: [place] [address] MEDICARE Member Subscriber Plan / Payer ([facility]Present) Name:Irina Price R Member ID:[id number] Relation to Subscriber:Self Name:IRINA PRICE R Subscriber ID:[id number] Payer ID:Not on file Group ID:Not on file Type:Medicare Address: [place] [address] MEDICARE Member Subscriber Plan / Payer ([facility]Present) Name:Kevin Pricea R Member ID:[id number] Relation to Subscriber:Self Name:IRINA PRICE R Subscriber ID:[id number] Payer ID:Not on file Group ID:Not on file Type:Medicare Address: [place] [address] MEDICARE Member Subscriber Plan / Payer ([facility]Present) Name:Kevin Pricea R Member ID:[id number] Relation to Subscriber:Self Name:IRINA PRICE R Subscriber ID:[id number] Payer ID:Not on file Group ID:Not on file Type:Medicare Address: [place] [address] MEDICARE Member Subscriber Plan / Payer ([facility]Present) Name:Kevin Pricea R Member ID:[id number] Relation to Subscriber:Self Name:IRINA PRICE R Subscriber ID:[id number] Payer ID:Not on file Group ID:Not on file Type:Medicare Address: [place] [address] MEDICARE MEDICARE MEDICARE MEDICARE MEDICARE Member Subscriber Plan / Payer ( fective 2019-Present) Name:Kevin Pricea R Member ID:[id number] Relation to Subscriber:Self Name:KEVIN PRICEA R Subscriber ID:[id number] Payer ID:Not on file Group ID:Not on file Type:Medicare Address: [place] [id number] MEDICARE Member Subscriber Plan / Payer ( fective 2019-Present) Name:Irina Price R Member ID:[id number] Relation to Subscriber:Self Name:IRINA PRICE R Subscriber ID:[id number] Payer ID:Not on file Group ID:Not on file Type:Medicare Address: [place] [id number] MEDICARE MEDICARE Member Subscriber Plan / Payer ( fective 2019-Present) Name:Kevin Pricea R Member ID:[id number] Relation to Subscriber:Self Name:KEVIN PRICEA R Subscriber ID:[id number] Payer ID:Not on file Group ID:Not on file Type:Medicare Address: [place] [phone] MEDICARE Member Subscriber Plan / Payer ( fective 2019-Present) Name:Kevin Pricea R Member ID:[id number] Relation to Subscriber:Self Name:KEVIN PRCIEA R Subscriber ID:[id number] Payer ID:Not on file Group ID:Not on file Type:Medicare Address: [place] [phone] MEDICARE MEDICARE MEDICARE MEDICARE MEDICARE Member Subscriber Plan / Payer [facility] Name:Irina Price R Member ID:[id number] Relation to Subscriber:Self Name:IRINA PRICE R Subscriber ID:[id number] Payer ID:Not on file Group ID:Not on file Type:Medicare Address: [place] [phone] MEDICARE MEDICARE MEDICARE MEDICARE MEDICARE MEDICARE Member Subscriber Plan / Payer ([facility]Present) Name:Kevin Pricea R Member ID:[id number] Relation to Subscriber:Self Name:IRINA PRICE R Subscriber ID:[id number] Payer ID:Not on file Group ID:Not on file Type:Medicare Address: [place] [address] MEDICARE Member Subscriber Plan / Payer ([facility]) Name:AlbertKevina R Member ID:[id number] Relation to Subscriber:Self Name:IRINA PRICE R Subscriber ID:[id number] Payer ID:Not on file Group ID:Not on file Type:Medicare Address: [place] [address] MEDICARE MEDICARE MEDICARE MEDICARE MEDICARE MEDICARE Member Subscriber Plan / Payer ([facility]Present) Name:Kevin Pricea R Member ID:[id number] Relation to Subscriber:Self Name:IRINA PRICE R Subscriber ID:[id number] Payer ID:Not on file Group ID:Not on file Type:Medicare Address: [place] [address] MEDICARE Member Subscriber Plan / Payer ([facility]Present) Name:Kevin Pricea R Member ID:[id number] Relation to Subscriber:Self Name:IRINA PRICE R Subscriber ID:[id number] Payer ID:Not on file Group ID:Not on file Type:Medicare Address: [place] [address] MEDICARE Member Subscriber Plan / Payer ([facility]Present) Name:Kevin Pricea R Member ID:[id number] Relation to Subscriber:Self Name:IRINA PRICE R Subscriber ID:[id number] Payer ID:Not on file Group ID:Not on file Type:Medicare Address: [place] [address] MEDICARE Member Subscriber Plan / Payer ([facility]Present) Name:Kevin Pricea R Member ID:[id number] Relation to Subscriber:Self Name:KEVIN PRICEA R Subscriber ID:[id number] Payer ID:Not on file Group ID:Not on file Type:Medicare Address: [place] [address] MEDICARE MEDICARE Member Subscriber Plan / Payer ([facility]Present) Name:Irina Price R Member ID:[id number] Relation to Subscriber:Self Name:IRINA PRICE R Subscriber ID:[id number] Payer ID:Not on file Group ID:Not on file Type:Medicare Address: [place] [address] MEDICARE Member Subscriber Plan / Payer [facility]Present) Name:Irina Price R Member ID:[id number] Relation to Subscriber:Self Name:IRINA PRICE R Subscriber ID:[id number] Payer ID:Not on file Group ID:Not on file Type:Medicare Address: [place] [address] MEDICARE Member Subscriber Plan / Payer ([facility]Present) Name:Irina Price R Member ID:[id number] Relation to Subscriber:Self Name:IRINA PRICE R Subscriber ID:[id number] Payer ID:Not on file Group ID:Not on file Type:Medicare Address: [place] [address] MEDICARE Member Subscriber Plan / Payer ([facility]) Name:Kevin Pricea R Member ID:[id number] Relation to Subscriber:Self Name:IRINA PRICE R Subscriber ID:[id number] Payer ID:Not on file Group ID:Not on file Type:Medicare Address: [place] [address] MEDICARE Member Subscriber Plan / Payer ([facility]) Name:Kevin Pricea R Member ID:[id number] Relation to Subscriber:Self Name:IRINA PRICE R Subscriber ID:[id number] Payer ID:Not on file Group ID:Not on file Type:Medicare Address: [place] [phone] MEDICARE Member Subscriber Plan / Payer ( fective 2019-Present) Name:Kevin Pricea R Member ID:[id number] Relation to Subscriber:Self Name:KEVIN PRICEA R Subscriber ID:[id number] Payer ID:Not on file Group ID:Not on file Type:Medicare Address: [place] [phone] MEDICARE MEDICARE MEDICARE Member Subscriber Plan / Payer ([facility]) Name:AlbertKevina R Member ID:[id number] Relation to Subscriber:Self Name:KEVIN PRICEA R Subscriber ID:[id number] Payer ID:Not on file Group ID:Not on file Type:Medicare Address: [place] [address] MEDICARE MEDICARE MEDICARE MEDICARE MEDICARE Member Subscriber Plan / Payer ( fective 2019-Present) Name:Kevin Pricea R Member ID:[id number] Relation to Subscriber:Self Name:IRINA PRICE R Subscriber ID:[id number] Payer ID:Not on file Group ID:Not on file Type:Medicare Address: [place] [phone] MEDICARE MEDICARE MEDICARE Advance Directives * Full Code (Latest Code Status on File) Date Activated Date Inactivated Comments 11/25/2021 10:45 PM 12/16/2021 10:21 PM * Full Code Date Activated Date Inactivated Comments 11/25/2021 9:39 PM 11/25/2021 10:44 PM Care Teams Racecourse Barrier Attendant Relationship Specialty Start Date End Date Ranjeet Colby MD [address] [place] [address] PCP - General 12/09/21 Ranjeet Colby MD [address] [place] [address] Family Medicine 11/26/21
--- OUTSIDE RECORDS SUMMARY | 2025-02-07 15:34 | XMS_ITS | Encounter Summary ---
Author Organization [facility] Address [address] [place] [address] Care Team Providers Care Hide Inspector Name Role Phone Ranjeet Colby MD Primary Care Provider [phone] Ranjeet Colby MD Unavailable [phone] Ranjeet Colby MD Primary Care Provider [phone] Encounter Details Date Type Department Care Team (Late st Contact Info) Description 12/02/2021 Ophth Exam [facility] [address] [place] [phone] Naina Strong MD [address] [place] [phone] Social History Tobacco Use Types Packs/Day [...] Description 03/20/2025 11:30 AM CDT Procedure visit [facility] [place] [address] [place] [phone] 03/20/2025 12:30 PM CDT Office [place] [facility] [place] [address] [place] [phone] Giovanny Srivastava MD [address] [place] [address] [place] [address] documented as of this encounter Goals Goal [...] documented as of this encounter Care Teams Hide Inspector Relationship Specialty Start Date End Date Ranjeet Colby MD PCP - General Internal Medicine 11/26/21 12/08/21 Ranjeet Colby MD [address] [place] [address] PCP - General 12/09/21 Ranjeet Colby MD [address] [place] [address] Family Medicine 11/26/21 documented as of this encounter
--- OUTSIDE RECORDS SUMMARY | 2025-02-07 15:34 | XMS_ITS | Encounter Summary ---
Author Organization [facility] Address [address] [place] [address] Care Team Providers Care Mold Operator Name Role Phone Ranjeet Colby MD Primary Care Provider [phone] Ranjeet Colby MD Unavailable [phone] Ranjeet Colby MD Primary Care Provider [phone] Encounter Details Date Type Department Care Team (Late st Contact Info) Description 11/30/2021 Ophth Exam [facility] [address] [place] [phone] Mandeep Pizano MD [address] [address] Social History Tobacco Use Types Packs/Day Years [...] Procedure visit [facility] [place] [address] [place] [phone] 03/20/2025 12:30 PM CDT [place] [facility] [place] [address] [place] [phone] Giovanny Srivastava MD [address] [place] [address] [place] [address] documented as of this encounter Goals Goal [...] documented as of this encounter Care Teams Mold Operator Relationship Specialty Start Date End Date Ranjeet Colby MD PCP - General Internal Medicine 11/26/21 12/08/21 Ranjeet Colby MD [address] [place] [address] PCP - General 12/09/21 Ranjeet Colby MD [address] [place] [address] Family Medicine 11/26/21 documented as of this encounter
== END 2025-02-07 15:18 | disposition home or self-care (01) ==
PROVIDERS: PCP Internal Medicine
DX: M54.6 Pain in thoracic spine (principal); M54.50 Low back pain, unspecified; M50.30 Other cervical disc degeneration, unspecified cervical region
CPT/HCPCS: 72040; 72072; 72100

== ENCOUNTER 2025-06-07 00:12 | Day surgery (SDC) | payer MEDICARE, SELFPAY ==
[2025-05-24 14:49] VITALS: BMI 29.9
--- NOTE | 2025-06-07 | S_PTH ---
PATIENT: Nano Price LOC: [facility] #:[id number] AGE/SX: 70/F ROOM: RE06/07/[address]: Ga Guzman MD : 1955 BED: DIS: 06/07/2025 SPEC #: [id number] RECD: 06/07/25 13:15 STATUS: [facility] [place] #: [id number] ALKA: 06/07/25 00:[address]: Ga Guzman DEPT: [facility] Surgical RECD BY: Simin De Luna ENTERED: 06/07/25 13:18 SP TYPE: Surgical OTHR DR: Ranjeet Colby, MD Giovanny Srivastava, Tissues: A - Gastric Biopsy B - Gastric Biopsy C - Colon Biopsy D - Colon Biopsy Procedures: Hematoxylin and Eosin Stain Gross and Microscopic Level 4
--- OUTSIDE RECORDS SUMMARY | 2025-06-07 00:23 | XMS_ITS | Encounter Summary ---
Author Organization [facility] Address [address] [place] [address] Care Team Providers Care Bowl Attendant Name Role Phone Ranjeet Colby MD Primary Care Provider [phone] Ranjeet Colby MD Unavailable [phone] Ranjeet Colby MD Primary Care Provider [phone] Ranjeet Colby MD Primary Care Provider [phone] Encounter Details Date Type Department Care Team (Late st Contact Info) Description 12/02/2021 Ophth Exam [facility] [address] [place] [phone] Naina Strong MD [address] [place] [phone] Social History Tobacco Use Types Packs/Day [...] Assessment Author Yes 11/26/2021 2:47 PM CDT Beniat Almazan RN * Does person have difficulty [...] Care Team (Late st Contact Info) Description 03/20/2026 11:30 AM CDT [place] [facility] [place] [address] [place] [address], [facility] [place] [phone] Giovanny Srivastava MD [address] [place] [address] [place] [address] documented as of this encounter Goals Goal Patient Goal Type Associated Problems Recent Progress Patient-Stated? Author Medication Management General On track( 025 1:26 PM CDT) Cesar Gregory, RN Note: Expected [...] documented as of this encounter Care Teams Bowl Attendant Relationship Specialty Start Date End Date Ranjeet Colby MD PCP - General Internal Medicine 11/26/21 12/08/21 Ranjeet Colby MD [address] [place] [address] PCP - General 12/09/21 03/19/25 Ranjeet Colby MD [address] [place] [phone] PCP - General Internal Medicine 03/20/25 Ranjeet Colby MD [address] [place] [address] Family Medicine 11/26/21 documented as of this encounter
--- OUTSIDE RECORDS SUMMARY | 2025-06-07 00:23 | XMS_ITS | Encounter Summary ---
Author Organization [facility] Address [address] [place] [address] Care Team Providers Care Information Services Consultant Name Role Phone Ranjeet Colby MD Primary Care Provider [phone] Ranjeet Colby MD Unavailable [phone] Ranjeet Colby MD Primary Care Provider [phone] Ranjeet Colby MD Primary Care Provider [phone] Encounter Details Date Type Department Care Team (Late st Contact Info) Description 11/30/2021 Ophth Exam [facility] [address] [place] [phone] Mandeep Pizano MD [facility] [address] [address] Social History Tobacco Use Types [...] Description 03/20/2026 11:30 AM CDT Office Visit [facility] [place] [address] [facility], [place] [phone] Giovanny Srivastava MD [address] [place] [address] [place] [address] documented as of this encounter Goals Goal [...] documented as of this encounter Care Teams Information Services Consultant Relationship Specialty Start Date End Date Ranjeet Colby MD PCP - General Internal Medicine 11/26/21 12/08/21 Ranjeet Colby MD [address] [place] [address] PCP - General 12/09/21 03/19/25 Ranjeet Colby MD [address] [place] [address] PCP - General Internal Medicine 03/20/25 Ranjeet Colby MD [address] [place] [address] Family Medicine 11/26/21 documented as of this encounter
--- OUTSIDE RECORDS SUMMARY | 2025-06-07 00:23 | XMS_ITS | Clinical Summary ---
Author Organization [facility] Address [address] [place] [address] Care Team Providers Care Marine Safety Officer Name Role Phone Ranjeet Colby MD Unavailable [phone] Ranjeet Colby MD Primary Care Provider [phone] Source Comments [facility],non-owned Affiliates and Associated Physician Practices is amultiple site organization consisting of ambulatory clinics and hospital sitesin [place], [place], [place] and [place]. This disclosure is being madepursuant to the Care Everywhere program and may not contain all information available regarding this patient. Last updated 18.[facility] Allergies Active Allergy Reactions Criticality Noted Date [...] 2 tablets by mouth once daily Active diclofenac sodium (Voltaren) 1 % gelIndications:Susanna floridalma osteoarthritis of right knee Apply 2 (two) g to affected area 4 times daily Apply to knees 100 g 5 4 Active ursodiol (Pedro Forte) 500 MG tabletIndications: Primary biliary cholangitis (HCC) Take 1 (one) tablet by mouth 2 times daily 180 tablet 3 5 03/20/20 26 Active Active Problems Problem Noted Date Diagnosed [...] encounter 11/25/2021 Primary biliary cholangitis 11/12/2016 Overview (03/21/2025): 12/2005: Liver biopsy: 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 Encounters Date Type Department Care Team Description 03/20/2025 12:30 PM CDT Office Visit [facility] - GI [address] [place] [phone] Unknown, Provider Giovanny Srivastava MD Primary biliary cholangitis (HCC) (Primary Dx); Abnormal findings on diagnostic imaging of other specified body structures; Osteopenia of hip, unspecified laterality 03/20/2025 11:30 AM CDT Procedure visit [facility] - GI [address] [place] [phone] Unknown, Provider Primary biliary cholangitis (HCC) 03/20/2025 Refill [facility] [address]L [address] [facility], [place] [phone] Cesar Shi, FACILITIES CLERK REFILL 03/20/2025 Travel from Last 3 Months Immunizations Immunization Administration Dates Next Due Covid Pfizer primary monoval ent 12+ yr 0.3mL Purple [...] Sign Reading Time Taken Comments Blood Pressure 116/66 03/20/2025 12:08 PM CDT Pulse 61 03/20/2025 12:08 PM CDT Temperature 36.6 C (97.9 F) 03/21/2024 1:19 PM CDT Respiratory Rate 14 03/20/2025 12:08 PM CDT Oxygen Saturation 97% 03/20/2025 12:08 PM CDT Inhaled Oxygen Concentration 21% 12/16/2021 4 :52 AM CDT Weight 66.2 kg (146 lb) 03/20/2025 12:08 PM CDT Height 152.4 cm (5') 03/20/2025 12:08 PM CDT Body Mass Index 28.51 03/20/2025 12:08 PM CDT Plan of Treatment Upcoming Encounters Date Type Department Care Team (Late st Contact Info) Description 03/20/2026 11:30 AM CDT Office Visit [facility] - GI [address] [place] [address], [place] [address] Giovanny Srivastava MD [address] [place] [address] [place] [address] Health Maintenance Due Date Last Done Comments [...] - Risk 60-74 years 1-dose series) 2014 DEPRESSION SCREENING 08/03/2024 COVID-19 VACCINE ( season) 2025 08/28/2021, 11/18/2020, 10/12/2020 INFLUENZA VACCINE (#1) 2025 06/09/2019, 2017 SCREENING FOR DIABETES 03/21/2027 , 04/02/2023, 11/20/2022, [...] On track( 025 1:26 PM CDT) Cesar Gregory RN Note: Expected end date: Interventions: Take all medications as prescribed Let your doctor know right away about any changes in your medications Make sure to request a refill of your medication at least one week prior to your last dose Procedures Procedure Name Priority Date/Time Associated Diagnosis Comments [place] LIVER ELASTOGRAPHY Routine 03/20/2025 12:11 PM CDT Primary biliary cholangitis (HCC) COMPREHENSIVE METABOLIC PANEL Routine 03/21/2024 11:50 AM CDT Primary biliary cholangitis DEXA BONE DENSITY AXIAL SKELETON Routine 04/02/2023 10:06 AM CDT Primary biliary cholangitis from Last 3 Months or Most Recently Relevant to Health Maintenance Results * NH LIVER ELASTOGRAPHY (03/20/2025 12:11 PM CDT) Narrative Charli Vallejo MD - 03/20/2025 12:11 PM CDT Charli Vallejo MD 03/21/2025 9:54 AM Diagnosis: PBC RN verified patient NPO for prior 3 hours. Procedure explained. Date of Exam: 03/20/2025 Liver Stiffness: (LSM, kPa) median: 9.2 IQR/Median% (ideally < 30%): 14% CAP (controlled attenuation parameter): 253 Technical Difficulty: None Ordering Provider: Dr. Srivastava Phone Fax Fibroscan interpretation: I have personally reviewed the Fibroscan report and associated tracings. The calculated Liver Stiffness Measurement (LSM, kPa) indicates that: The probability of advanced liver fibrosis is: moderate. The loss of ultrasound signal, (controlled attenuation parameter, CAP [dB/m]), indicates that the probability of hepatic steatosis is: moderate. Charli Denise MD The following criteria are used to indicate the probability of advanced (stage 3-4) fibrosis: < 7.0 kPa: low 7.0-8.9 kPa: low to moderate 9.0-14.9 kPa: moderate 15-20 kPa: high > 20 kPa: very high Liver stiffness > 12 kPa is associated with an increased risk of cirrhosis-related complications over the next 3-5 years (Candaceier, 2022). Liver stiffness > 20 kPa is also associated with a high probability of complications of portal hypertension including varices and ascites. Liver stiffness > 50 kPa is associated with a high risk of variceal bleeding. These interpretations are based on the following published data: Jaime J, Hagstr m H, Ekstestefaniat M, Saulo C, Bonacci M, Cure S, Ampuero J, Nasr P, Tallab L, Canivet CM, Kechagias S, S nchez Y, Dincuff E, Mylene A, Jake M, Riou J, Trymichael A and Julio-Moctezuma M. Non-invasive tests accurately stratify patients with NAFLD based on their risk of liver-related events. J Hepatol (2021) 76: 3981-0723. Alex PJ, Zulema M, No M, et al. Accuracy of FibroScan controlled attenuation parameter and liver stiffness measurement in assessing steatosis and fibrosis in patients with nonalcoholic fatty liver disease. Gastroenterology 2019;156:5157-5100. Adeel MS, Ramon R, Van Denise ML, et al. Vibration-controlled transient elastography to assess fibrosis and steatosis in patients with nonalcoholic fatty liver disease. Clin Gastroenterol Hepatol 2019;17:156-163. Note that scores have been developed that incorporate the Fibroscan liver stiffness measurement from large cohorts of patients with liver biopsies to further refine the ability of Fibroscan to identify patients with MASH and advanced fibrosis. These include the FAST (Fibroscan-AST) score (Je, 202) and the Agile3+ and Agile4 scores (Jessica, 202; Maday, 202). Je TA, Van Natzeny ML, Jarocho M, Camilo A, et al. Validation of the accuracy of the FAST score for detecting patients with at-risk nonalcoholic steatohepatitis (PAGE) in a [place] cohort and comparison to other non-invasive algorithms. PLoS ONE (2021) 17: [id number]. Jessica LOZA, Saadia J, María ZM, et al. Enhanced diagnosis of advanced fibrosis and cirrhosis in individuals with NAFLD using FibroScan-based Agile scores. J Hepatol (2022) 78: 247-259. Maday et al. Vibration-controlled transient elastography scores to predict liver-related events in steatotic liver disease. DEA (2023) 331: 4388-8799 Fibroscan LSM can also be used with laboratory parameters without formulas to assess prognosis. According to the Baveno-VII criteria (Melgoza, 202), Fibroscan LSM <=15 kPa plus a platelet count of >=297w696/L rules out clinically significant portal hypertension (sensitivity and negative predictive value >90%) in patients with compensated advanced chronic liver disease. Melgoza R, Antonio J, Macario-Brittany G, Damaris T, Caren C on behalf of the Baveno VII Faculty. Baveno VII--Renewing consensus in portal hypertension. J Hepatol (2021) 76: 959-974 Assessing the likelihood of advanced fibrosis in patients with intermediate liver stiffness measurement (LSM) by Fibroscan (e.g., 8-15 kPa) can be improved by also calculating the FIB-4 score (Henrietta et al. Hepatology Communications 2019;3:7728-8201) or NAFLD Fibrosis score (Marroquin et al. Clinical Gastroenterology and Hepatology 2019;17:4102-8560 using routine clinical data. Notes: 1. Fibroscan cannot reliably identify earlier stages of fibrosis (ie distinguish F0 from F1 and F2) and thus a histologic stage cannot be predicted from the Fibroscan reading. 2. Liver stiffness can be increased by factors other than fibrosis including passive congestion, infiltrative processes, active alcoholism, recent moderate alcohol consumption in the 2 weeks before the exam, biliary obstruction and marked inflammation. The interpretation of the Fibroscan result provided above may not have taken such clinical factors into account. 3. Identifying steatosis by an elevated CAP score (> 250 db/m) is useful for establishing a diagnosis of steatotic liver disease. However the severity of steatosis does not correlate with liver related outcomes. Disease etiology also influences Fibroscan cutoff values for fibrosis stages and the following cutoffs have been proposed (Bin et al, Clin Gastro Hepatol 2015; 13:27-36): Cutoffs for Stage 3 and Stage 4 fibrosis respectively: Hepatitis B: >9 and >11.7 kPa Hepatitis C: >9.5 and >12.5 kPa HCV-HIV: >11 and >14 kPa Cholestatic liver diseases: >10 and >17.9 kPa MASLD/MASH: >10 and >14 kPa CAP estimates of steatosis: normal <200 dB/m mild 200 to 250 dB/m moderate 250-290 dB/m substantial > 290 dB/m (Note that Fibroscan is not a quantitative measure of liver fat.) These criteria are estimates and may change as additional supporting data becomes available. (This additional interpretive data was last updated 08/05/24.) [email or web address] Giovanny Srivastava MD PROCEDURE/MINOR SURGIC AL ORDERABLES Final Result * (ABNORMAL) COMPREHENSIVE METABOLIC PANEL (03/21/2024 11:50 AM CDT) BUN 12 7 - 26 mg/dL 03/21/2024 12:45 PM CDT [facility] Creatinine 0.66 0.56 - 0.96 mg/dL 03/21/2024 12:45 PM T [facility] Sodium 136 136 - 145 mmol/L 03/21/2024 12:45 PM CDT [facility] Potassium 5.0(H) 3.5 - 4.5 mmol/L 03/21/2024 12:45 PM CDT [facility] Chloride 100 98 - 107 mmol/L 03/21/2024 12:45 PM [facility] CO2 28 22 - 29 mmol/L 03/21/2024 12:45 PM [facility] Glucose 120(H) 70 - 115 mg/dL 03/21/2024 12:45 PM [facility] Calcium 10.1 8.4 - 10.2 mg/dL 03/21/2024 12:45 PM [facility] Protein Total 7.5 6.0 - 8.3 g/dL 03/21/2024 12:45 PM [facility] Albumin 4.1 3.4 - 5.0 g/dL 03/21/2024 12:45 PM [facility] Bilirubin Total 0.4 0.2 - 1.2 mg/dL 03/21/2024 12:45 PM [facility] Alkaline Phosphatase 88 40 - 150 U/L 03/21/2024 12:45 PM [facility] ALT 19 5 - 55 U/L 03/21/2024 12:45 PM [facility] AST 23 5 - 34 U/L 03/21/2024 12:45 PM [facility] Anion Gap 8 6 - 16 03/21/2024 12:45 PM [facility] BUN/Creatinine Ratio 18 7 - 23 03/21/2024 12:45 PM [facility] Osmolality Calculated 283 275 - 295 mOsm/kg 03/21/2024 12:45 PM [facility] Albumin/Globulin Ratio 1.2 1.1 - 2.3 03/21/2024 12:45 PM [facility] eGFR by CKD-EPI >90 >=90 mL/min/1.7 3 m2 03/21/2024 12:45 PM [facility] Blood BLOOD SPECIMEN / Unknown Lab Venipuncture / Unknown 03/21/2024 11:50 AM CDT 03/21/2024 12:08 PM [facility] us Giovanny Srivastava MD LAB - CHEMISTRY ORDERA BLES Final Result [address] [place] [address], [facility] [phone] * BONE DENSITY AXIAL SKELETON(1OR MORE SITES)[id number] (04/02/2023 10:06 AM CDT) Anatomical Region Laterality [...] below > Dictated by George Abad MD (Pneumatic Tube Fitter) 04/02/2023 2:47 PM IKavon DO have personally [...] below > Dictated by George Abad MD (Pneumatic Tube Fitter) 04/02/2023 2:47PM IKavon DO have personally reviewed and interpreted this examination/study. > Interpreting Provider: Kavon Navas DO on 04/02/2023 2:53 PM Giovanny Sanjeev Srivastava MD DEXA ORDERABLES Final Result from Last 3 Months or Most Recently Relevant to Health Maintenance Insurance MEDICARE MEDICARE [facility] FINANCIAL MEDICARE SUPPLEMENT PAYOR GENERIC MEDICARE MEDICARE SUPPLEMENT PAYOR GENERIC MEDICARE MEDICARE MEDICARE SUPPLEMENT PAYOR GENERIC MEDICARE MEDICARE SUPPLEMENT PAYOR GENERIC TPL THIRD ALLIANCE PARTY LIABILITY MEDICARE MEDICARE MEDICARE MEDICARE MEDICARE MEDICARE MEDICARE MEDICARE MEDICARE MEDICARE MEDICARE MEDICARE MEDICARE MEDICARE MEDICARE MEDICARE MEDICARE MEDICARE MEDICARE MEDICARE MEDICARE MEDICARE MEDICARE Member Subscriber Plan / Payer ( fective 2019-Present) Name:Kevin Pricea R Member ID:[id number] Relation to Subscriber:Self Name:KEVIN PRICEA R Subscriber ID:[id number] Payer ID:Not on file Group ID:Not on file Type:Medicare Address: [address] MED[address]ARE MEDICARE MEDICARE Member Subscriber Plan / Payer ( fective 2019-Present) Name:AlbertKevina R Member ID:[id number] Relation to Subscriber:Self Name:KEVIN PRICEA R Subscriber ID:[id number] Payer ID:Not on file Group ID:Not on file Type:Medicare Address: [place] [id number] MEDICARE Member Subscriber Plan / Payer ( fective 2019-Present) Name:AlbertKevina R Member ID:[id number] Relation to Subscriber:Self Name:ALBERTKEVINA R Subscriber ID:[id number] Payer ID:Not on file Group ID:Not on file Type:Medicare Address: [place] [id number] MEDICARE Member Subscriber Plan / Payer ( fective 2019-Present) Name:Irina Price R Member ID:[id number] Relation to Subscriber:Self Name:IRINA PRICE R Subscriber ID:[id number] Payer ID:Not on file Group ID:Not on file Type:Medicare Address: [address] Member Subscriber Plan / Payer ( fective 2019-Present) Name:Kevin Pricea R Member ID:[id number] Relation to Subscriber:Self Name:KEVIN PRICEA R Subscriber ID:[id number] Payer ID:Not on file Group ID:Not on file Type:Medicare Address: [place] [id number] MEDICARE Member Subscriber Plan / Payer ( fective 2019-Present) Name:Kevin Pricea R Member ID:[id number] Relation to Subscriber:Self Name:KEVIN PRICEA R Subscriber ID:[id number] Payer ID:Not on file Group ID:Not on file Type:Medicare Address: [place] [id number] MEDICARE Member Subscriber Plan / Payer ( fective 2019-Present) Name:Kevin Pricea R Member ID:[id number] Relation to Subscriber:Self Name:IRINA PRICE R Subscriber ID:[id number] Payer ID:Not on file Group ID:Not on file Type:Medicare Address: [place] [id number] MEDICARE Member Subscriber Plan / Payer ( fective 2019-Present) Name:Kevin Pricea R Member ID:[id number] Relation to Subscriber:Self Name:KEVIN PRICEA R Subscriber ID:[id number] Payer ID:Not on file Group ID:Not on file Type:Medicare Address: [place] [id number] MEDICARE MEDICARE MEDICARE MEDICARE MEDICARE MEDICARE MEDICARE MEDICARE MEDICARE MEDICARE MEDICARE MEDICARE MEDICARE MEDICARE MEDICARE MEDICARE MEDICARE MEDICARE MEDICARE MEDICARE MEDICARE MEDICARE MEDICARE MEDICARE MEDICARE MEDICARE Member Subscriber Plan / Payer ( fective 2019-Present) Name:Kevin Pricea R Member ID:[id number] Relation to Subscriber:Self Name:KEVIN PRICEA R Subscriber ID:[id number] Payer ID:Not on file Group ID:Not on file Type:Medicare Address: [place] [id number] MEDICARE Member Subscriber Plan / Payer ( fective 2019-Present) Name:Irina Price R Member ID:[id number] Relation to Subscriber:Self Name:IRINA PRICE R Subscriber ID:[id number] Payer ID:Not on file Group ID:Not on file Type:Medicare Address: [place] [id number] MEDICARE Member Subscriber Plan / Payer ( fective 2019-Present) Name:Kevin Pricea R Member ID:[id number] Relation to Subscriber:Self Name:KEVIN PRICEA R Subscriber ID:[id number] Payer ID:Not on file Group ID:Not on file Type:Medicare Address: [place] [id number] MEDICARE Member Subscriber Plan / Payer ( fective 2019-Present) Name:Kevin Pricea R Member ID:[id number] Relation to Subscriber:Self Name:KEVIN PRICEA R Subscriber ID:[id number] Payer ID:Not on file Group ID:Not on file Type:Medicare Address: [place] [id number] MEDICARE Member Subscriber Plan / Payer ( fective 2019-Present) Name:Kevin Pricea R Member ID:[id number] Relation to Subscriber:Self Name:KEVIN PRICEA R Subscriber ID:[id number] Payer ID:Not on file Group ID:Not on file Type:Medicare Address: [place] [id number] MEDICARE Member Subscriber Plan / Payer ( fective 2019-Present) Name:Kevin Pricea R Member ID:[id number] Relation to Subscriber:Self Name:KEVIN PRICEA R Subscriber ID:[id number] Payer ID:Not on file Group ID:Not on file Type:Medicare Address: [address] MED[address] MEDICARE MEDICARE MEDICARE MEDICARE MEDICARE MEDICARE MEDICARE MEDICARE MEDICARE MEDICARE MEDICARE MEDICARE MEDICARE MEDICARE MEDICARE Member Subscriber Plan / Payer ( fective 2019-Present) Name:AlbertKevina R Member ID:[id number] Relation to Subscriber:Self Name:IRINA PRICE Subscriber ID:[id number] Payer ID:Not on file Group ID:Not on file Type:Medicare Address: [place] [id number] MEDICARE Member Subscriber Plan / Payer ( fective 2019-Present) Name:Irina Price R Member ID:[id number] Relation to Subscriber:Self Name:IRINA PRICE Subscriber ID:[id number] Payer ID:Not on file Group ID:Not on file Type:Medicare Address: [place] [id number] MEDICARE Member Subscriber Plan / Payer ( fective 2019-Present) Name:Irina Price Member ID:[id number] Relation to Subscriber:Self Name:IRINA PRICE Subscriber ID:[id number] Payer ID:Not on file Group ID:Not on file Type:Medicare Address: [place] [phone] MEDICARE Advance Directives * Full Code (Latest Code Status on File) Date Activated Date Inactivated Comments 11/25/2021 10:45 PM 12/16/2021 10:21 PM * Full Code Date Activated Date Inactivated Comments 11/25/2021 9:39 PM 11/25/2021 10:44 PM Care Teams Marine Safety Officer Relationship Specialty Start Date End Date Ranjeet Colby MD [address] [place] [phone] PCP - General Internal Medicine 03/20/25 Ranjeet Colby [place] [address] Family Medicine 11/26/21
--- OUTSIDE RECORDS SUMMARY | 2025-06-07 00:23 | XMS_ITS | Encounter Summary ---
Author Organization [facility] Address [facility] [place] [address] Care Team Providers Care Buyer Agent Name Role Phone aRnjeet Colby MD Unavailable [phone] Ranjeet Colby MD Primary Care Provider [phone] Ranjeet Colby MD Primary Care Provider [phone] Reason for Visit * Reason Onset Date Comments Appointment 08/18/2023 Encounter Details Date Type Department Care Team (Late st Contact Info) Description 08/18/2023 Telephone [facility] - Ophthalmology [address] [place] [phone] Kimi Chance MD [address] [place] [address] [place] [address] Appointment Social History Tobacco Use [...] Frequency of Binge Drinking Not on file 04/2 12/2021 Hunger Vital Sign Answer Date Recorded Within [...] reschedule today's appointment. Please assist and advise [employer] SCIENCES LECTURER documented in this encounter Plan of Treatment Upcoming Encounters Date Type Department Care Team (Late st Contact Info) Description 03/20/2026 11:30 AM CDT Office Visit [facility] - GI [address] [facility], [place] [address] Giovanny Srivastava MD [address] [place] [address] [address] [facility] [place] [address] documented as of this encounter Goals Goal [...] on filedocumented in this encounter Care Teams Buyer Agent Relationship Specialty Start Date End Date Ranjeet Colby MD [address] [place] [address] PCP - General 12/09/21 03/19/25 [place] [address] [place], [place] [phone] PCP - General Internal Medicine 03/20/25 Ranjeet Colby MD [address] [place] [address] Family Medicine 11/26/21 documented as of this encounter
--- OUTSIDE RECORDS SUMMARY | 2025-06-07 00:23 | XMS_ITS | Clinical Summary ---
Author Organization [facility] Address [address] [place] [address] Care Team Providers Care Reverser Name Role Phone Ranjeet Colby MD Primary Care Provider [phone] Allergies Active Allergy Reactions Criticality Noted Date [...] 1 tablet (25 mcg total) by mouth brewing technician before breakfast Active lisinopriL (PRINIVIL,ZESTRI L) 2.5 [...] (05/31/2021): Added automatically from request for surgery [id number] Coronary atherosclerosis 05/28/2021 Closed fracture of proximal end of right fibula 05/27/2021 HTN (hypertension) 05/27/2021 Hypothyroidism 05/27/2021 Hyperlipidemia 05/27/2021 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 05/27/2021 Acute traumatic pain 05/27/2021 Fracture of tibial plateau 05/26/2021 Overview (05/27/2021): Added automatically from request for surgery [id number] Closed fracture of lateral portion of right tibi al plateau 05/26/2021 Overview (05/29/2021): Added automatically from request for surgery [id number] Surgical History Surgery Date Site/Laterality Comments BACK [...] on file Legal Sex Female 6:19 PM [employer] Gender Identity Not on file Sexual Orientation [...] 65+ (1 of 2 - PCV) 1973 Zoster Vaccine (1 of 2) 01/17/2004 DTaP/Tdap/Td Vaccine (1 - Tdap) 04/09/2013 3 Well Visit 65+ 2019 Fall Risk Assessment 06/12/2022 06/12/2021 Osteoporosis Screening-Bone Density Scan 04/02/2025 04/02/2023 Covid-19 Vaccine (4 - 2024-2 6 season) 2025 08/28/2021, 11/18/2020, 10/12/2020 Influenza Vaccine (#1) 2025 , 06/29/2020, 06/09/2019, Additional history exists Medical Devices Implanted Type Area Balance Truer Device Identifier Shelf Expiration Date Model / Serial / Lot Allosource [id number] Cubes Graft 15ml Bone Cancellous - [id number] - [id number] Implanted:Qty: 1 on 06/12/2021 by Sara Johnson MD at [facility] Bone Right: Leg Allosource 11/26/2025 [id number] / [id number] / Description:AlloSource ID: [id number] [employer]/Orth o [id number] Evos 113x11.5x3.6mm 32.3x1.9mm 8 Hole Low Profile Variable Angle - [id number] Implanted:Qty: 1 on 06/12/2021 by Sara Johnson MD at [facility] Plate Right: Tibia [employer]/O rtho [id number] / / [employer]/Orth o [id number] Evos 3.5mm 70mm Self Tap Lock Screw Bone Sterile - [id number] Implanted:Qty: 3 on 06/12/2021 by Sara Johnson MD at [facility] Screw Right: Tibia [employer]O rtho [id number] / / [employer]/Orth o [id number] Evos 3.5mm 65mm Self Tap Lock Screw Bone Sterile - [id number] Implanted:Qty: 1 on 06/12/2021 by Sara Johnson MD at [facility] Screw Right: Tibia [employer]O rtho [id number] / / [employer]/Orth o [id number] Evos 3.5mm 38mm Self Tap Lock Screw Bone Sterile - [id number] Implanted:Qty: 1 on 06/12/2021 by Sara Johnson MD at [facility] Screw Right: Tibia [employer]O rtho [id number] / / [employer]/Orth o [id number] Evos 3.5mm 28mm Self Tap Lock Screw Bone Sterile - [id number] Implanted:Qty: 1 on 06/12/2021 by Sara Johnson MD at [facility] Screw Right: Tibia [employer] rtho [id number] / / [employer]/Orth o [id number] Evos 3.5mm 34mm Self Tap Cortex Screw Bone Sterile - [id number] Implanted:Qty: 1 on 06/12/2021 by Sara Johnson MD at [facility] Screw Right: Tibia [employer] rtho [id number] / / [employer]/Orth o [id number] - [id number] Implanted:Qty: 1 on 06/12/2021 by Sara Johnson MD at [facility] Screw Right: Tibia [employer]O rtho [id number] / / Synthes 294.55sha Pin 5mm 170mm Half Stainless Steel Hydroxyapatite Troc Blnt - [id number] Implanted:Qty: 4 on 05/27/2021 by Arthur Wiseman MD at [facility] Right: Leg Synthes I 294.55SHA / / [employer]/Orth o [id number] Evos 3.5mm 32mm Self Tap Cortex Screw Bone Sterile - [id number] Implanted:Qty: 1 on 05/30/2021 by Sara Johnson MD at [facility] Right: Tibia [employer]O rtho [id number] / / [employer]/Orth o [id number] Evos 3.5mm 30mm Self Tap Lock Screw Bone Sterile - [id number] Implanted:Qty: 1 on 05/30/2021 by Sara Johnson MD at [facility] Right: Tibia [employer]O rtho [id number] / / [employer]/Orth o [id number] Evos 3.5mm 22mm Self Tap Cortex Screw Bone Sterile - [id number] Implanted:Qty: 1 on 05/30/2021 by Sara Johnson MD at [facility] Right: Tibia [employer]O rtho [id number] / / [employer]/Orth o [id number] Evos 3.5mm 26mm Self Tap Lock Screw Bone Sterile - [id number] Implanted:Qty: 1 on 05/30/2021 by Sara Johnson MD at [facility] Right: Tibia [employer]O rtho [id number] / / [employer]/Orth o [id number] Evos 3.5mm 36mm Self Tap Lock Screw Bone Sterile - [id number] Implanted:Qty: 1 on 05/30/2021 by Sara Johnson MD at [facility] Right: Tibia [employer]O rtho [id number] / / [employer]/Orth o [id number] Evos 3.5mm 34mm Self Tap Lock Screw Bone Sterile - [id number] Implanted:Qty: 1 on 05/30/2021 by Sara Johnson MD at [facility] Right: Tibia [employer]O [employer]tho [id number] / / [employer]/Orth o [id number] Evos 138mm 10 Hole Tibia Right Proximal Medial Plate Bone Sterile - [id number] Implanted:Qty: 1 on 05/30/2021 by Sara Johnson MD at [facility] Right: Tibia [employer]O rtho [id number] / / Explanted Type Area Balance Truer Device Identifier Shelf Expiration Date Model / Serial / Lot [employer] 1600-9625ns Claudia .062in 9in [place]car [employer] One End Orthopedic Wire - [id number] Explanted:Qty: 2 on 05/30/2021 at [facility] Right: Tibia [employer] [id number] S / / [employer] 1600-9455ns Claudia .45in 9in 1 [place] Orthopedic Wire Fixation - [id number] Explanted:Qty: 1 on 06/12/2021 by Sara Johnson MD at [facility] Right: Tibia [employer] [id number] S / / [employer] 1600-9625ns Claudia .062in 9in [place] One End Orthopedic Wire - [id number] Explanted:Qty: 2 on 06/12/2021 by Sara Johnson MD at [facility] Right: Tibia [employer] [id number] S / / Synthes 294.786 Schanz 5mm 200mm 80mm Self Drill Mr Conditional Screw External - [id number] Explanted:Qty: 2 on 06/12/2021 by Sara Johnson MD at [facility] Right: Tibia Synthes I 294.786 / / Insurance MEDICARE COMMERCIAL GENERIC MEDICARE COMMERCIAL GENERIC Member Subscriber Plan / Payer (Ef fective 2019-Present) Name:Nano Price Relation to Subscriber:Self Name:Nano Price Payer ID:[id number] Group ID:[id number] Type:COMMERCIAL Address: [place] [id number] MEDICARE [facility] FINANCIAL Advance Directives For more information, please contact: [phone] * Full Code (Latest Code Status on File) Date Activated Date Inactivated Comments 05/27/2021 1:56 PM 06/03/2021 10:45 PM Care Teams Reverser Relationship Specialty Start Date End Date Ranjeet Colby MD PCP - General 06/21/19
--- NOTE | 2025-06-07 07:10 | WPDANESEPPF ---
Anes - Initial Pre Proc Eval Procedure: Operation Date: 06/07/25 11:00 Proposed Procedures p EGD & Diagnostic Colonoscopy - Ga Guzman MD Date/Time: 06/07/25 07:10 Surgeon: Ga Guzman MD Pre Op Diagnosis: GERD,diarrhea Patient Data Age: 70 Gender: F Height: 1.5 m Weight: 67.27 kg Allergies Allergy/AdvReac Type Severity Reaction Status Date / Time pregabalin AdvReac Nausea and Verified 06/07/25 10:33 Vomiting propoxyphene AdvReac Nausea and Verified 06/07/25 10:33 Vomiting rosuvastatin AdvReac Other Verified 06/07/25 10:33 Home Medications ?Medication ?Instructions ?Recorded ?Confirmed ?Type atorvastatin 20 mg tablet 20 mg PO DAILY 12/18/21 06/07/25 History cetirizine 10 mg tablet (Zyrtec) 10 mg PO DAILY PRN Allergy Symptoms 12/18/21 06/07/25 History citalopram 20 mg tablet 20 mg PO DAILY 12/18/21 06/07/25 History isosorbide mononitrate 30 mg 30 mg PO DAILY 12/18/21 06/07/25 History tablet,extended release 24 hr levothyroxine 25 mcg tablet 25 mcg PO DAILY 12/18/21 06/07/25 History trazodone 50 mg tablet 50 mg PO HS 12/18/21 06/07/25 History triamterene 37.5 1 tablet PO QAM 12/18/21 04/18/25 History mg-hydrochlorothiazide 25 mg tablet (Maxzide-25mg) Held on 12/26/21. Instructions: review with primary care physician if and when you should return to this medication ursodiol 500 mg tablet 500 mg PO BID 12/18/21 05/24/25 History Held on 12/26/21. Instructions: discussed with family physician 1 to reach calcium carbonate (Oyster Shell 500 mg PO BIDWM #0 tabs 12/26/21 06/07/25 Rx Calcium 500) lisinopril 2.5 mg tablet 5 mg (2 x 2.5 mg) PO DAILY 30 days 12/26/21 05/24/25 Rx #60 tabs gabapentin 300 mg capsule 600 mg PO TID 01/07/24 06/07/25 History dicyclomine 10 mg capsule 10 mg PO TID PRN abdominal 04/18/25 06/07/25 Rx pain/diarrhea 1 month #90 caps omeprazole 40 mg capsule,delayed 40 mg PO DAILY 04/18/25 06/07/25 History release aspirin 81 mg capsule 81 mg PO DAILY 05/24/25 06/07/25 History Patient hx anesthesia problems: none Family hx anesthesia problems: none Results Review: All pre-operative results and documents have been reviewed as part of the pre-operative evaluation. [facility] Past Medical History Medical History (Updated 06/07/25 @ 07:11 by Philip Esteban DO) Cirrhosis Tobacco use GERD (gastroesophageal reflux disease) Diarrhea Fibromyalgia Hyperlipidemia Hypertension Social History Social History Social History: lives alone 1 story home with 2-3 steps to enter Smoking packs per day: 1 Smoking cigarettes per day: 20.0 Years smoked: 45 Smoking pack-years: 45.00 Smoking status: Former smoker Tobacco type: cigarettes Second hand tobacco smoke exposure: Yes Alcohol intake: current Alcohol use details: 3 drinks a month Substance use: current Substance use type: marijuana Living arrangements: alone Spiritual care concerns: No Anes - Eval Final PreProcedure Day of Procedure 06/07/25 07:10 Patient weight: overweight Heart: regular rate and rhythm Lungs: clear to auscultation Airway: Mallampati scale class II Neurological: alert and oriented Last oral intake: >/= 8 hours ASA classification: IV Emergent: no Anesthetic plan: proceed Anesthesia type and monitoring: general GIVS and standard monitoring Results Review: All pre-operative results and documents have been reviewed as part of the pre-operative evaluation. Informed Consent: The patient's anesthetic plan and its attendant risks and benefits were discussed with the patient/family/POA. Questions were solicited and answers provided to the satisfaction of the patient/family/POA.
[2025-06-07 10:36] VITALS: BP 117/91; PULSE 75; RESP 18; TEMP 36.6; O2SAT 95; BMI 28.2
[2025-06-07] MEDS: LACTATED RINGERS 1,000 ML 150 ML IV CONT (10:42)
--- NOTE | 2025-06-07 11:34 | PM.IMHP ---
H&P: HPI History of Present Illness Date/Time: 06/07/25 11:34 Chief Complaint: History of colon polyps-chronic zlcwlczq-[id number]-hlmncnl of Zamora's esophagus Narrative: This patient is referred for EGD and colonoscopy. She was diagnosed with Zamora's esophagus years ago and is currently asymptomatic from a GERD standpoint. In addition she has a history of colon polyps and has been experiencing chronic diarrhea. The plan is to do right and left colon biopsies to rule out microscopic colitis as well as biopsies of the Zamora's esophagus segment. Review of Systems Review of Systems: All systems reviewed & are unremarkable except as noted in HPI and below PMFSH Past Medical History Medical History (Updated 06/07/25 @ 07:11 by Philip Esteban DO) Cirrhosis Tobacco use GERD (gastroesophageal reflux disease) Diarrhea Fibromyalgia Hyperlipidemia Hypertension Social History Social History Social History: lives alone 1 story home with 2-3 steps to enter Smoking packs per day: 1 Smoking cigarettes per day: 20.0 Years smoked: 45 Smoking pack-years: 45.00 Smoking status: Former smoker Tobacco type: cigarettes Second hand tobacco smoke exposure: Yes Alcohol intake: current Alcohol use details: 3 drinks a month Substance use: current Substance use type: marijuana Living arrangements: alone Spiritual care concerns: No Meds Home Medications and Allergies Home Medications ?Medication ?Instructions ?Recorded ?Confirmed ?Type atorvastatin 20 mg tablet 20 mg PO DAILY 12/18/21 06/07/25 History cetirizine 10 mg tablet (Zyrtec) 10 mg PO DAILY PRN Allergy Symptoms 12/18/21 06/07/25 History citalopram 20 mg tablet 20 mg PO DAILY 12/18/21 06/07/25 History isosorbide mononitrate 30 mg 30 mg PO DAILY 12/18/21 06/07/25 History tablet,extended release 24 hr levothyroxine 25 mcg tablet 25 mcg PO DAILY 12/18/21 06/07/25 History trazodone 50 mg tablet 50 mg PO HS 12/18/21 06/07/25 History triamterene 37.5 1 tablet PO QAM 12/18/21 04/18/25 History mg-hydrochlorothiazide 25 mg tablet (Maxzide-25mg) Held on 12/26/21. Instructions: review with primary care physician if and when you should return to this medication ursodiol 500 mg tablet 500 mg PO BID 12/18/21 05/24/25 History Held on 12/26/21. Instructions: discussed with family physician 1 to reach calcium carbonate (Oyster Shell 500 mg PO BIDWM #0 tabs 12/26/21 06/07/25 Rx Calcium 500) lisinopril 2.5 mg tablet 5 mg (2 x 2.5 mg) PO DAILY 30 days 12/26/21 05/24/25 Rx #60 tabs gabapentin 300 mg capsule 600 mg PO TID 01/07/24 06/07/25 History dicyclomine 10 mg capsule 10 mg PO TID PRN abdominal 04/18/25 06/07/25 Rx pain/diarrhea 1 month #90 caps omeprazole 40 mg capsule,delayed 40 mg PO DAILY 04/18/25 06/07/25 History release aspirin 81 mg capsule 81 mg PO DAILY 05/24/25 06/07/25 History Allergies Allergy/AdvReac Type Severity Reaction Status Date / Time pregabalin AdvReac Nausea and Verified 06/07/25 10:33 Vomiting propoxyphene AdvReac Nausea and Verified 06/07/25 10:33 Vomiting rosuvastatin AdvReac Other Verified 06/07/25 10:33 Vital Signs Vital Signs - 24 hr 06/07/25 10:36 Temperature 97.8 F Pulse Rate 75 Respiratory Rate 18 Blood Pressure 117/91 H Pulse Oximetry 95 Oxygen Delivery Room Air Exam Const: General: cooperative and healthy appearing Resp: Effort & Inspection: normal respiratory effort and able to speak in complete sentences Auscultation: clear to auscultation bilaterally Cardio: Rate: regular rate Rhythm: regular rhythm GI: Inspection: normal to inspection GI Palp: No No hepatosplenomegaly present Auscultation: normal bowel sounds Rectal Exam: deferred Skin: General skin exam: normal color Psych: Appearance: grossly normal Mental Status: mental status grossly normal Assessment and Plan Assessment and plan (1) Zamora's esophagus: Code(s): K22.70 - Zamora's esophagus without dysplasia Status: Acute (2) GERD (gastroesophageal reflux disease): Code(s): K21.9 - Gastro-esophageal reflux disease without esophagitis Status: Acute (3) Diarrhea: Code(s): R19.7 - Diarrhea, unspecified Status: Acute Assessment and Plan: The patient is deemed a good candidate for the procedures. Consent signed. Will proceed.
[2025-06-07 12:32] VITALS: BP 114/79; PULSE 85; RESP 19; O2SAT 95
[2025-06-07 12:42] VITALS: BP 143/71; PULSE 74; RESP 16; O2SAT 94
[2025-06-07 12:52] VITALS: BP 163/83; PULSE 72; RESP 20; O2SAT 95
--- NOTE | 2025-06-07 14:07 | SUR.OPER ---
EGD DONE AT 1204 AND COLONOSCOPY STARTED AT 1210
== END 2025-06-07 13:05 | disposition home or self-care (01) ==
PROVIDERS: PCP Internal Medicine; Referring Provider Nurse Practitioner Family; Visit Provider Internal Medicine Gastroenterology
PROC: 0DJ08ZZ Inspection of Upper Intestinal Tract, Via Natural or Artificial Opening Endoscopic (ICD-10-PCS; CPT 45378; principal; 2025-06-07 11:00)
DX: R19.7 Diarrhea, unspecified (principal); K57.30 Diverticulosis of large intestine without perforation or abscess without bleeding; K64.8 Other hemorrhoids; K21.9 Gastro-esophageal reflux disease without esophagitis; K44.9 Diaphragmatic hernia without obstruction or gangrene; K31.7 Polyp of stomach and duodenum; Z87.891 Personal history of nicotine dependence
CPT/HCPCS: 43235; 45378; 88305; J2704; J7120